=== PATIENT | male | born 1930 | race Caucasian/White ===

== ENCOUNTER → 2017-07-19 | Outpatient (CLI) | payer MEDICARE, BC ==
--- NOTE | 2017-07-19 10:15 | US ---
EXAMINATION TYPE: US abdomen complete DATE OF EXAM: 07/19/2017 COMPARISON: NONE CLINICAL HISTORY: I35.0 Nonrheumatic aortic (valve) stenosis. Elderly patient with ABD pain EXAM MEASUREMENTS: Liver Length: 14.0 cm Gallbladder Wall: 0.2 cm CBD: 0.5 cm Spleen: 8.3 cm Right Kidney: 12.2 x 4.5 x 4.5 cm Left Kidney: 10.2 x 5.4 x 4.7 cm Very thin body habitus, difficult to scan Pancreas: Body wnl, head and tail obscured by overlying bowel gas Liver: Appeared wnl Gallbladder: wnl Evidence for sonographic Dyer's sign: No CBD: wnl Spleen: wnl Right Kidney: Two cysts, largest at upper pole= 2.4 x 1.5 x 2.0 cm simple appearing Left Kidney: Two cysts at upper pole, largest= 2.4 x 1.6 x 1.5 cm simple appearing Upper IVC: wnl Abd Aorta: wall calcifications 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 The intrahepatic portion of the IVC and proximal abdominal aorta are within normal limits. Focal aneurysm over roughly 4 cm length measuring 3.2 x 3.7 cm transversel y in the distal abdominal aorta is noted. No definitive iliac artery extension is seen. There is no e vidence of cholelithiasis. Common bile duct is unremarkable. The visualized portions of the pancrea s are homogenous. The spleen is heterogeneous but not enlarged. Kidneys are symmetric and free of h ydronephrosis. No renal lesions are seen. 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
== END | disposition home or self-care (01) ==
LOC: RADUSWWP 09:32
PROVIDERS: ATTEND Internal Medicine Interventional Cardiology
DX: I71.4 Abdominal aortic aneurysm, without rupture (principal); I35.0 Nonrheumatic aortic (valve) stenosis
CPT/HCPCS: 76700

== ENCOUNTER → 2017-07-27 | Outpatient (CLI) | payer MEDICARE, BC ==
[2017-07-27 08:51] LABS: CH 32.1; CHCM 31.1; HCT 40.8 % (39.0-53.0); HDW 2.13; HGB 12.8 gm/dL (13.0-17.5); Hypochromasia Slight; MCH 32.7 pg (25.0-35.0); MCHC 31.5 g/dL (31.0-37.0); MCV 103.9 fL (80.0-100.0); Macrocytosis Slight; Mean Platelet Volume 8.7; RBC 3.92 m/uL (4.30-5.90); RDW 12.2 % (11.5-15.5); WBC 5.2 k/uL (3.8-10.6)
[2017-07-27 09:03] LABS: ALT 58 U/L (21-72); AST 45 U/L (17-59); Anion Gap 10 mmol/L; Blood Urea Nitrogen 39 mg/dL (9-20); Calcium 9.3 mg/dL (8.4-10.2); Carbon Dioxide 26 mmol/L (22-30); Chloride 106 mmol/L (98-107); Cholesterol 135 mg/dL (<200); Creatine Kinase 68 U/L (55-170); Glucose 90 mg/dL (74-99); HDL Cholesterol 53 mg/dL (40-60); Non-African American GFR(MDRD) >60 (>60 ml/min/1.73 sqM); Potassium 4.6 mmol/L (3.5-5.1); Sodium 142 mmol/L (137-145)
== END | disposition home or self-care (01) ==
LOC: LABWHC1 08:10
PROVIDERS: ATTEND Internal Medicine Interventional Cardiology
DX: I50.9 Heart failure, unspecified (principal); I25.10 Atherosclerotic heart disease of native coronary artery without angina pectoris
CPT/HCPCS: 36415; 80048; 80061; 82550; 84450; 84460; 85027

== ENCOUNTER 2017-07-31 06:23 | Inpatient (IN) | payer MEDICARE, BC ==
[2017-07-26 13:50] VITALS: BMI 18.8
[2017-07-31] MEDS ORDERED: ATORVASTATIN 80 MG TAB PO STA (06:27)
[2017-07-31] MEDS ORDERED: ALPRAZolam 0.5 MG TAB PO PRN (06:27)
[2017-07-31] MEDS ORDERED: NITROGLYCERIN SL TABS 0.4 MG TAB SUBLINGUAL PRN (06:27)
[2017-07-31] MEDS ORDERED: ASPIRIN 325 MG TAB PO STA (06:27)
[2017-07-31] MEDS ORDERED: ALPRAZolam 0.25 MG TAB PO PRN (06:27)
[2017-07-31] MEDS ORDERED: SODIUM CHLORIDE 0.9% 1,000 ML in EMPTY BAG 1 BAG IV ONE (06:27)
[2017-07-31] MEDS ORDERED: LIDOCAINE 2% INJ 20 MG/ML (20 ML MDV) ONE (07:10)
[2017-07-31] MEDS ORDERED: diphenhydrAMINE 50 MG/ML 1 ML VIAL ONE ×2 (07:28→14:45)
[2017-07-31] MEDS ORDERED: diphenhydrAMINE 50 MG/ML 1 ML VIAL IVP ONE ×2 (07:29→15:24)
[2017-07-31] MEDS ORDERED: LIDOCAINE 2% INJ 20 MG/ML IV ONE (07:29)
[2017-07-31] MEDS ORDERED: LIDOCAINE 2% INJ 20 MG/ML SQ ONE ×3 (07:31→17:37)
[2017-07-31] MEDS ORDERED: IOHEXOL 350 MG/ML (PER ML) 100ML BTL INJ ONE (08:26)
[2017-07-31] MEDS ORDERED: SODIUM CHLORIDE 0.9% 1,000 ML IV ONE (08:26)
[2017-07-31 08:39] LABS: Glucose,Whole Blood 81 mg/dL (75-99)
[2017-07-31] MEDS ORDERED: LOSARTAN 25 MG TAB PO STA (08:58)
--- NOTE | 2017-07-31 09:43 | CC ---
CARDIAC CATHETERIZATION REPORT DATE OF SERVICE: 07/31/2017 PROCEDURE: 1. Transvenous temporary pacemaker from the right femoral approach. 2. Coronary angiography and selective injection of bypass graft. Performed by Dr. Vinh Collazo. CLINICAL INFORMATION: Mr. Mckeon is 86-year-old gentleman who underwent aortocoronary bypass surgery in 1995 with a SHEN to LAD, vein graft to the PDA branch of RCA and obtuse marginal branch of circumflex. This gentleman underwent a cardiac cath in 2007, which revealed that these grafts are patent. However, over the years, he has developed aortic stenosis and has had significant shortness of breath with activity. His symptoms suggestive of both angina and also moderate aortic stenosis. He was advised cardiac catheterization and transesophageal echo and brought in for the procedure. 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 After he came into the [facility], he was found to be in a sinus rhythm with block and the heart rate is in the 30s and sometimes a complete heart block. I therefore made a decision to proceed with a temporary pacemaker and coronary angiography. Will postpone the HE for now and also consider a permanent pacemaker later on in the day. The patient has aortic stenosis and given his calcification of the AV ring area, the need for permanent pacemaker seems to be pretty significant. This was discussed with the patient and I proceeded to perform a temporary pacemaker after due discussion. PROCEDURE NOTE: Under local anesthesia and strict aseptic precautions, a 6-Uzbek introducer was placed in the right femoral vein and right femoral artery. Using a balloon tip, temporary pacemaker was placed and positioned in the right ventricular apex. Good thresholds were obtained. The pacer was set at a backup rate of 48, mA of 5.0. Using a standard left Tessa catheter, I performed selective coronary angiography of the left coronary artery. Using a Barrett catheter, I performed selective coronary angiography of the 2 vein grafts in the SHEN. The right picture was taken only in a sub selective fashion and this was totally occluded in that cath from 2007. Following coronary angiography, the sheaths were sutured. Pacemaker was sutured and patient was sent to the ICU with the understanding he will have a permanent pacemaker later on today and transesophageal echo will be canceled for now and I will have had to be brought in for HE at a later date. The patient tolerated the procedure well. Moderate conscious sedation was provided for a total duration of 45 minutes. CORONARY ANGIOGRAPHY FINDINGS: 1. LEFT MAIN CORONARY ARTERY: this is a short patent disease-free vessel that immediately bifurcates into LAD and circumflex. 2. LEFT ANTERIOR DESCENDING CORONARY ARTERY: This vessel has a proximal 70% to 80% stenosis, calcified, and then the vessel in the midportion and has attachment of the SHEN graft. The entire LAD has mild disease, but the proximal lesion is about 70% to80% eccentric in nature. 3. LEFT POSTERIOR CIRCUMFLEX CORONARY ARTERY: A nondominant vessel, is quite tortuous, has minor irregularities of 30% to 40%, but no significant disease is noted in the left posterior circumflex coronary artery. 4. RIGHT CORONARY ARTERY: This was sub selectively seen and this is a totally occluded vessel, which was seen as a total occlusion in the cath from 2007. 5. SAPHENOUS VEIN GRAFT TO THE PDA BRANCH OF RCA: This graft is widely patent. In the proximal 1/3, there is about a 45% stenosis, but the flow is brisk. It opacifies the entire PDA and also PLV as well as the main trunk of RCA. The entire RCA that is opacified is free of significant disease. There is a 45% lesion involving the body of the vein graft to the RCA, located in the proximal portion of the body. The graft lesion is moderate and represents some progression of disease compared to the previous cardiac cath from 2008. However, I do not believe this is a critical lesion. 6. SAPHENOUS VEIN GRAFT TO THE OBTUSE MARGINAL GRAFT OF CIRCUMFLEX: This graft is widely patent. The origin course has mild disease in the body of the graft, opacified obtuse marginal branch is free of significant disease. Supplies a fair amount of myocardium. 7. LEFT INTERNAL MAMMARY ARTERY GRAFT TO LAD: The graft is widely patent. The origin course insertions opacified LAD distally and also to some extent proximal and demonstrates a brisk flow. There is no significant disease other than minor irregularities and the SHEN graft is free of any significant disease. FINAL IMPRESSION: 1. This patient has a complete heart block and has a temporary transvenous pacemaker which has been placed uneventfully. 2. Patient has progression of disease with about a 45% lesion involving the body of the vein graft to the PDA branch of RCA looked in the proximal portion. The lesion is about 45% to 50%. It represents progression of disease, but it is not critical. The vein graft to the obtuse marginal and SHEN to LAD are patent. [place] LAD has 80% lesion proximally in calcified area. The circumflex is free of significant disease. RECOMMENDATIONS: I am recommending that no intervention is necessary for this disease, but the RCA graft needs to be watched closely. I will perform a permanent pacemaker later on today and will cancel the HE which will be performed electively. This was communicated with the patient and family members in great detail. I will perform the permanent pacemaker around 2:30 this afternoon. MMODL / IJN: [id number] /
--- NOTE | 2017-07-31 09:46 | LTR ---
Date: DATE OF SERVICE: 07/31/2017 RE: Faizan Mckeon Dear Dr. Parr; Please find enclosed my detailed cardiac cath report for your records. I am recommending medical therapy for a CAD with moderate progression of disease noted in the vein graft to the RCA. We will do a permanent pacemaker this afternoon. Temporary pacemaker is already in place. I will cancel the HE for now and bring him back for the HE electively to assess the severity and extent of disease involving the aortic valve. Thank you for your referral and please call for questions. With kindest regards. Sincerely yours, MD HILDA ZengL / PAWELN: [id number] /
[2017-07-31] MEDS: SODIUM CHLORIDE 0.9% 1,000 ML IV SCH (10:12)
[2017-07-31] MEDS ORDERED: amLODIPine 5 MG TAB PO STA (10:26)
[2017-07-31] MEDS ORDERED: HYDROmorphone 0.5 MG/0.5 ML SYRINGE IVP STA (10:27)
--- NOTE | 2017-07-31 12:37 | ECHOF ---
Referral Reason:assess heart function; hx aortic stenosis MEASUREMENTS -------- HEIGHT: 152.4 cm WEIGHT: 61.2 kg BP: 158/61 IVSd: 1.2 cm (0.6 - 1.1) LVIDd: 4.1 cm (3.9 - 5.3) LVPWd: 1.3 cm (0.6 - 1.1) IVSs: 1.8 cm LVIDs: 3.1 cm LVPWs: 1.1 cm LA Diam: 4.2 cm (2.7 - 3.8) LAESV Index (A-L): 48.34 ml/m MV EXCURSION: 18.525 mm (> 18.000) MV EF SLOPE: 63 mm/s (70 - 150) EPSS: 0.5 cm MV E Jimmie: 0.72 m/s MV DecT: 248 ms MV A Jimmie: 0.92 m/s MV E/A Ratio: 0.78 AV maxP.16 mmHg AV meanP.21 mmHg AR PHT: 910 ms RAP: 5.00 mmHg RVSP: 32.20 mmHg FINDINGS -------- Paced rhythm. This was a technically good study. There is mild concentric left ventricular hypertrophy. Overall left ventricular systolic function is severely impaired with, an EF between 20 - 25 %. MODERATE LVH WITH SEVERE LV DYSFUNCTION Lateral hypokinesis Posterior hypokinesis The right ventricle is normal in size. LA is severely dilated >40 ml/m2 The right atrial size is normal. There is severe aortic valve sclerosis. There is wbai-ub-vrylszxe aortic regurgitation. There is severe aortic stenosis present. Mild mitral regurgitation is present. Mild tricuspid regurgitation present. There is no evidence of pulmonary hypertension. The right ventricular systolic pressure, as measured by Doppler, is 32.20mmHg. Trace/mild (physiologic) pulmonic regurgitation. The aortic root size is normal. There is no pericardial effusion. CONCLUSIONS -------- 1. There is mild concentric left ventricular hypertrophy. 2. There is severe aortic stenosis present. 3. Mild mitral regurgitation is present. 4. Mild tricuspid regurgitation present. 5. There is no evidence of pulmonary hypertension. 6. The right ventricular systolic pressure, as measured by Doppler, is 32.20mmHg. 7. Trace/mild (physiologic) pulmonic regurgitation. 8. The aortic root size is normal. 9. There is no pericardial effusion. 10. Overall left ventricular systolic function is severely impaired with, an EF between 20 - 25 %. 11. MODERATE LVH WITH SEVERE LV DYSFUNCTION 12. Lateral hypokinesis 13. Posterior hypokinesis 14. LA is severely dilated >40 ml/m2 15. The right atrial size is normal. 16. There is severe aortic valve sclerosis. 17. There is rtyk-hf-jprkiwij aortic regurgitation. PARKING CASHIER: Olimpia Durant RDCS
[2017-07-31] MEDS ORDERED: IODIXANOL 320 MG/ML 100 ML IV ONE (14:24)
[2017-07-31] MEDS ORDERED: ceFAZolin 1,000 MG in SODIUM CHLORIDE 0.9% IRRIGATIO 250 ML IRRIGATION ONE (14:30)
[2017-07-31] MEDS ORDERED: ceFAZolin 2 GM in SODIUM CHLORIDE 0.9% 100 ML IVPB ONE (14:30)
[2017-07-31] MEDS ORDERED: MIDAZOLAM 2 MG/2 ML VIAL ONE (14:44)
[2017-07-31] MEDS ORDERED: HYDROmorphone 2 MG/ML 1 ML SYRINGE ONE (15:19)
[2017-07-31] MEDS: HYDROmorphone 2 MG/ML 1 ML SYRINGE IV ONE ×2 (15:20→17:37)
[2017-07-31] MEDS ORDERED: IV FLUID CONTINUATION 1,000 ML IV ONE (15:24)
[2017-07-31] MEDS ORDERED: MIDAZOLAM 2 MG/2 ML VIAL IV ONE (15:24)
[2017-07-31] MEDS ORDERED: IV FLUID CONTINUATION 500 ML IV ONE (15:26)
[2017-07-31] MEDS ORDERED: ACETAMINOPHEN TAB 325 MG TAB PO PRN (17:19)
--- NOTE | 2017-07-31 18:32 | XR ---
EXAMINATION TYPE: XR chest 1V portable DATE OF EXAM: 07/31/2017 COMPARISON: 01/26/2016 HISTORY: Postop TECHNIQUE: Single frontal view of the chest is obtained. FINDINGS: Heart is enlarged. There is mild pulmonary vascular redistribution. There is no definite p leural effusion. There is a left axillary pacemaker with the lead tips in the right ventricle. There are sternal wires. Thoracic aorta is atheromatous. IMPRESSION: Cardiomegaly. New axillary pacemaker. Mild pulmonary congestion. Pulmonary vascularity i s increased compared to last exam and consistent with mild heart failure.
[2017-07-31] MEDS ORDERED: FUROSEMIDE 10 MG/ML 2 ML VIAL IV ONE (19:00)
--- NOTE | 2017-07-31 19:48 | CE ---
CARDIAC ELECTROPHYSIOLOGY REPORT DATE OF PROCEDURE: 07/31/2017. PROCEDURE: Dual chamber permanent pacemaker placement from left infraclavicular approach. PERFORMED BY: Dr. Vinh Collazo. CLINICAL INFORMATION: Mr. Faizan Mckeon is an 86-year-old gentleman with a history of CAD, previous VT and bypass surgery, who also has moderate aortic stenosis. He was brought in for a HE and cardiac cath because of symptoms of chest pain and shortness of breath with limited activity. However he was found to be in a complete heart block with underlying left bundle with intermittent high-grade 2:1 block. He was therefore advised permanent pacemaker. A temporary pacemaker was placed under fluoroscopic guidance early this morning prior to cardiac catheterization and he was paced at 70 beats per minute and was stable hemodynamically. PROCEDURE: Under local anesthesia and strict aseptic precautions, 2 separate access points were obtained into the left axillary vein under fluoroscopic guidance with a venogram. I then made a linear incision of about 3-1/2 inches long parallel and medial to the left deltopectoral groove. Blunt dissection was performed with cautery up to the level of fascia. A pocket was made of adequate size. I then advanced under fluoroscopic guidance through a 6-Jordanian introducer. The ventricular lead and placed in the left ventricular apical septal portion. Good thresholds and sensitivities are obtained. I then advanced a 6-[place]ian venous sheath over the next guidewire and advanced the atrial lead under fluoroscopic guidance and after several multiple attempts, I obtained a reasonable actively accessible sensitivities but good thresholds. I then secured each lead separately to the underlying muscle. The pocket was drenched with antibiotic solution. The patient also had IV antibiotic running during the onset of the procedure. The pulse generator was then connected to the 2 leads and the pulse generator was also secured. The pocket was then closed in 2 layers. Thrombin was injected into the site.Excellent hemostasis was achieved. The temporary pacemaker was then taken out under fluoroscopy guidance and the sheaths were pulled. Both arterial and venous sheaths were pulled and hemostasis secured with manual compression and then a FemoStop will be applied for 2 hours. The patient tolerated procedure well without complications. He will have a chest x-ray today and another chest x-ray tomorrow along with a pacemaker check and then he will be discharged if stable. The details of the procedure were explained to the patient and also to family members and he will be sent to the room in a stable condition. PERMANENT PACEMAKER INFORMATION: Medical Office Rep: [employer] MRI 2272. Serial #[id number]. Atrial lead library science professor: [employer] Tendril [employer] 1882TC/52 cm, serial number [id number]. Ventricular lead library science professor: [employer] Tendril STS 8TC/58 cm, serial number [id number]. The atrial lead threshold was 0.5 V at 0.4 milliseconds. The P wave sensing ranged between 1.42-2.0 mV. The lead impedance was 350 ohms. Ventricular lead threshold was 0.75 V at 0.4 mV. Sensing was not performed because patient was pacer dependent. The lead impedance was 600 ohms. The pacemaker has been set at a low rate of 50, high rate of 110, paced AV delay of 200 milliseconds and sensed AV delay of 180 milliseconds. The mode was DDDR. The patient tolerated the pacemaker procedure well without complication and the details were discussed with the patient and family. He will be sent to the room in a stable condition. Moderate conscious sedation was used for a total duration of 1 hour 30 minutes. The patient was given Dilaudid and Versed combination. MMJUS / IJN: [id number] / MTDFarzad
[2017-07-31] MEDS: ceFAZolin 2 GM in SODIUM CHLORIDE 0.9% 100 ML IVPB SCH (20:21)
[2017-08-01] MEDS: ceFAZolin 2 GM in SODIUM CHLORIDE 0.9% 100 ML IVPB SCH ×2 (02:36→08:50)
[2017-08-01 04:56] LABS: Basophils % (A) 0 %; CH 32.3; CHCM 31.8; Eosinophils % (A) 0 %; HCT 41.1 % (39.0-53.0); HDW 2.22; HGB 13.4 gm/dL (13.0-17.5); Luc # (Auto) 0.17; Luc % (Auto) 2; Lymphocytes # (A) 0.8 k/uL (1.0-4.8); Lymphocytes % (A) 8 %; MCH 33.4 pg (25.0-35.0); MCHC 32.6 g/dL (31.0-37.0); MCV 102.2 fL (80.0-100.0); Macrocytosis Slight; Mean Platelet Volume 7.7; Monocytes # (A) 0.7 k/uL (0-1.0); Monocytes % (A) 8 %; Neutrophils # (A) 7.9 k/uL (1.3-7.7); Neutrophils % (A) 82 %; RBC 4.02 m/uL (4.30-5.90); RDW 12.2 % (11.5-15.5); WBC 9.6 k/uL (3.8-10.6); WBC (Perox) 9.88
[2017-08-01 05:12] LABS: Anion Gap 10 mmol/L; Blood Urea Nitrogen 37 mg/dL (9-20); Carbon Dioxide 26 mmol/L (22-30); Chloride 103 mmol/L (98-107); Glucose 124 mg/dL (74-99); Magnesium 2.1 mg/dL (1.6-2.3); Non-African American GFR(MDRD) >60 (>60 ml/min/1.73 sqM); Phosphorus 3.7 mg/dL (2.5-4.5); Potassium 3.9 mmol/L (3.5-5.1); Sodium 139 mmol/L (137-145)
[2017-08-01] MEDS: SODIUM CHLORIDE 0.9% 1,000 ML IV SCH (06:00)
[2017-08-01] MEDS ORDERED: ATORVASTATIN 10 MG TAB PO SCH (06:55)
--- NOTE | 2017-08-01 07:02 | XR ---
EXAMINATION TYPE: XR chest 2V DATE OF EXAM: 08/01/2017 COMPARISON: Chest x-ray from yesterday. HISTORY: Lead placement TECHNIQUE: Frontal and lateral views of the chest are obtained. FINDINGS: There is redemonstration of cardiomegaly. Dual lead pacemaker has leads projecting over ri ght atrium and right ventricle confirmed on lateral view. There is patchy left basilar opacity consis tent with small left pleural effusion and associated left basilar atelectasis and/or infiltrate. The osseous structures are demineralized. Atherosclerotic thoracic aorta is redemonstrated. IMPRESSION: Pacemaker leads project into right atrium and right ventricle on 2 views. There is redem onstration of cardiomegaly with small left pleural effusion and associated left basilar atelectasis a nd/or infiltrate.
[2017-08-01 07:47] LABS: Glucose,Whole Blood 87 mg/dL (75-99)
[2017-08-01 08:03] VITALS: PULSE 64; RESP 16
[2017-08-01] MEDS ORDERED: ASPIRIN 81 MG PO SCH (09:00)
[2017-08-01] MEDS ORDERED: FUROSEMIDE 40 MG TAB PO SCH ×2 (09:00→14:00)
[2017-08-01] MEDS ORDERED: LOSARTAN 25 MG TAB PO SCH (09:00)
--- NOTE | 2017-08-01 11:33 | DS ---
DISCHARGE SUMMARY DATE OF ADMISSION: 07/31/2017. DATE OF DISCHARGE: 08/01/2017 DIAGNOSIS: 1. Coronary artery disease with previous bypass surgery. 2. High-degree AV block, symptomatic. 3. History of moderate aortic stenosis. Mr. Faizan Mckeon was brought in for the procedure for coronary angiography to assess the status of the bypass grafts and [place] vessels and also to have a HE performed. However, he was quite symptomatic with significant bradycardia and a heart rate in the 30s with a 2:1 block and sometimes complete heart block. I therefore performed a temporary pacemaker from the right femoral approach and then performed coronary angiography, which revealed moderate progression of disease involving the vein graft to the RCA, but no other significant progression was noted. With regard to CAD, medical therapy was advised. I also canceled the HE echo and will perform this electively. Subsequently, yesterday afternoon at about 3 pm I performed a permanent pacemaker from the left infraclavicular approach. Patient tolerated the procedure well without complication. His chest x-rays both yesterday and today are unremarkable. His vital signs are stable. Pacemaker is functioning well. This has been interrogated with good sensitivities and thresholds. The patient is ambulating the hallways without symptoms. Hie is asymptomatic. I reviewed all his medications and gave him discharge instructions regarding activity, diet and medications. I will see him in the office next Sunday at 2 pm. This morning, his blood pressure is 128/70, pulse rate is about 64 per minute, which is atrial sensed and ventricular paced. S1, S2 are normal. Ejection systolic murmur is audible at the base. Second heart sound appears to be fairly preserved. Lungs are clear. Abdomen is soft, nontender. Lower extremities reveal normal pulses. No edema. Right groin is clean and dry with a good pulse. The left infraclavicular pacemaker site is clean and dry. The patient is in a sling, ambulating hallways without symptoms. He will be discharged today after lunch. DISCHARGE INSTRUCTIONS: Regarding activity, diet, medications were given. Labs are acceptable. He will start Lasix tomorrow. He will be discharged today and will follow with me in one week. MMODL / IJN: [id number] /
[2017-08-01] MEDS ORDERED: CYANOCOBALAMIN 500 MCG TAB PO SCH (12:00)
[2017-08-01 12:09] VITALS: BP 111/53; TEMP 98.2
== END 2017-08-01 14:01 | disposition home or self-care (01) | DRG 243 ==
LOC: CATHCVL 06:23 → 6ICU 08:25 → CATHCVL 14:03
PROVIDERS: ADMIT Internal Medicine Interventional Cardiology; ATTEND Internal Medicine Interventional Cardiology
PROC: 4A023N7 Measurement of Cardiac Sampling and Pressure, Left Heart, Percutaneous Approach (ICD-10-PCS; 2017-07-31)
PROC: B2131ZZ Fluoroscopy of Multiple Coronary Artery Bypass Grafts using Low Osmolar Contrast (ICD-10-PCS; 2017-07-31)
PROC: B2111ZZ Fluoroscopy of Multiple Coronary Arteries using Low Osmolar Contrast (ICD-10-PCS; 2017-07-31)
PROC: 5A1223Z Performance of Cardiac Pacing, Continuous (ICD-10-PCS; 2017-07-31)
PROC: 02H63JZ Insertion of Pacemaker Lead into Right Atrium, Percutaneous Approach (ICD-10-PCS; 2017-07-31)
PROC: 0JH606Z Insertion of Pacemaker, Dual Chamber into Chest Subcutaneous Tissue and Fascia, Open Approach (ICD-10-PCS; principal; 2017-07-31 07:30)
PROC: 02HL3JZ Insertion of Pacemaker Lead into Left Ventricle, Percutaneous Approach (ICD-10-PCS; 2017-07-31 07:30)
DX: I44.2 Atrioventricular block, complete (principal); Q21.1 Atrial septal defect; I25.82 Chronic total occlusion of coronary artery; I35.0 Nonrheumatic aortic (valve) stenosis; I25.10 Atherosclerotic heart disease of native coronary artery without angina pectoris; I71.4 Abdominal aortic aneurysm, without rupture; E78.5 Hyperlipidemia, unspecified; I25.5 Ischemic cardiomyopathy; I10 Essential (primary) hypertension; E78.00 Pure hypercholesterolemia, unspecified; Z95.1 Presence of aortocoronary bypass graft; Z79.82 Long term (current) use of aspirin; Z79.899 Other long term (current) drug therapy; Z87.891 Personal history of nicotine dependence
CPT/HCPCS: 33208; 33210; 71010; 71020; 80048; 83735; 84100; 85025; 85347; 93306; 93455

== ENCOUNTER 2017-08-29 10:48 | Day surgery (SDC) | payer MEDICARE, BC ==
[2017-08-23 15:08] VITALS: BMI 19.3
[2017-08-29 11:20] VITALS: RESP 16; TEMP 98
[2017-08-29] MEDS ORDERED: SODIUM CHLORIDE 0.9% 500 ML IV ONE (11:21)
[2017-08-29] MEDS ORDERED: fentaNYL (PF) 50 MCG/ML 2 ML AMP ONE (12:33)
[2017-08-29] MEDS ORDERED: MIDAZOLAM 2 MG/2 ML VIAL ONE (12:33)
[2017-08-29] MEDS ORDERED: BENZOCAINE SPRAY 1 CAN MUCOUS MEM ONE (12:59)
[2017-08-29] MEDS ORDERED: MIDAZOLAM 2 MG/2 ML VIAL IV ONE (13:07)
[2017-08-29] MEDS ORDERED: fentaNYL (PF) 50 MCG/ML 2 ML AMP IV ONE (13:07)
[2017-08-29] MEDS ORDERED: SODIUM CHLORIDE 0.9% 1,000 ML IV SCH (14:00)
[2017-08-29 14:37] VITALS: BP 142/62; PULSE 62
--- NOTE | 2017-08-29 14:56 | ECHOT ---
TRANSESOPHAGEAL ECHOCARDIOGRAM Mr. Mckeon is an 86-year-old gentleman who underwent transesophageal echocardiogram to evaluate the patient's aortic stenosis. Patient was given intravenous sedation with Versed and fentanyl and transesophageal echocardiogram was performed without any complications. Left ventricular chamber is normal in size. There is a moderate degree of left ventricular hypertrophy with normal left ventricular systolic function. Mitral valve morphology is normal. Mild mitral regurgitation noted. Left atrial appendage is without any thrombus. Aortic valve is heavily calcified with diminished aortic leaflet excursion and the opening. Aortic valve area is calculated in the range of 0.7 square cm suggestive of severe aortic stenosis. There is a mild aortic regurgitation noted. Tricuspid valve morphology is normal. Mild tricuspid regurgitation is noted. There is evidence of small size atrial septal defect with continuous left to right shunt. The saline contrast study shows a small qzhhr-ea-yjxw shunt. Descending thoracic aorta shows multiple atherosclerotic plaque. FINAL IMPRESSION: 1. This study shows calcified aortic valve with severe degree of aortic stenosis. Aortic valve area calculated in the range of 0.7 squared cm. There is a mild aortic regurgitation noted. 2. Left ventricular chamber is normal in size with mild to moderate degree of left ventricular hypertrophy and normal left ventricular systolic function. 3. There is mild mitral regurgitation noted. 4. There is evidence of small atrial septal defect with pvhw-hq-fxkji shunt. MMODL / IJN: [id number] /
--- NOTE | 2017-09-11 05:39 | CDI ---
Dear Dr. Osborn, Please provide clarification regarding the type of sedation given. The HE report states that the patient was given intravenous sedation with Versed and Fentanyl. Please clarify if the sedation was Moderate/conscious sedation or GA/ unconscious sedation. PLEASE RESPOND TO THIS QUERY BY DICTATING AN ADDENDUM TO THE HE REPORT. Thank you for your assistance, ARASH Morales If you have any questions, contact the Counterintelligence Specialist, Janet Angulo at [facility]
== END 2017-08-29 14:51 | disposition home or self-care (01) ==
LOC: CATHCVL 10:48
PROVIDERS: ATTEND Internal Medicine Cardiovascular Disease
DX: I08.0 Rheumatic disorders of both mitral and aortic valves (principal); Q21.1 Atrial septal defect; I44.2 Atrioventricular block, complete; I25.2 Old myocardial infarction; Z82.49 Family history of ischemic heart disease and other diseases of the circulatory system; Z87.891 Personal history of nicotine dependence; E78.00 Pure hypercholesterolemia, unspecified; I10 Essential (primary) hypertension; Z95.1 Presence of aortocoronary bypass graft; Z95.0 Presence of cardiac pacemaker; Z79.82 Long term (current) use of aspirin; Z79.899 Other long term (current) drug therapy
CPT/HCPCS: 93312; 93320; 93325; J2250; J3010

== ENCOUNTER → 2017-12-18 | Outpatient (CLI) | payer MEDICARE, BC ==
[2017-12-18 09:28] LABS: HCT 37.6 % (39.0-53.0); Hypochromasia Marked; MCH 29.8 pg (25.0-35.0); MCHC 29.2 g/dL (31.0-37.0); MCV 102.1 fL (80.0-100.0); Macrocytosis Slight; Mean Platelet Volume 7.6; Platelet Count 101 k/uL (150-450); RBC 3.68 m/uL (4.30-5.90); RDW 13.6 % (11.5-15.5); WBC 5.2 k/uL (3.8-10.6)
[2017-12-18 09:46] LABS: Anion Gap 7 mmol/L; Blood Urea Nitrogen 25 mg/dL (9-20); Calcium 9.4 mg/dL (8.4-10.2); Carbon Dioxide 29 mmol/L (22-30); Chloride 104 mmol/L (98-107); Glucose 89 mg/dL (74-99); Potassium 4.7 mmol/L (3.5-5.1); Sodium 140 mmol/L (137-145)
== END | disposition home or self-care (01) ==
LOC: LABWHC1 08:53
PROVIDERS: ATTEND Internal Medicine Interventional Cardiology
DX: I25.10 Atherosclerotic heart disease of native coronary artery without angina pectoris (principal); D64.9 Anemia, unspecified
CPT/HCPCS: 36415; 80048; 85027

== ENCOUNTER 2018-04-04 16:30 | Emergency (ER) | payer MEDICARE, BC ==
[2018-04-04 16:42] VITALS: RESP 18
[2018-04-04] MEDS ORDERED: SODIUM CHLORIDE 0.9% 1,000 ML IV STA ×2 (16:58)
[2018-04-04] MEDS ORDERED: DILTIAZEM 50 MG in SODIUM CHLORIDE 0.9% 40 ML IV ONE (17:02)
--- NOTE | 2018-04-04 17:05 | ED ---
Dizziness HPI - General Chief Complaint: Dizziness Stated Complaint: Dizzy-Sent by Time Seen by Provider: 04/04/18 16:47 Source: patient, family, RN notes reviewed Mode of arrival: ambulatory Limitations: no limitations - History of Present Illness Initial Comments: This is a 87-year-old male who was having cardiac rehab today when he started feeling dizzy and lightheaded and a blood pressure of 70s over 40s. This was per a rehab nurse it was present with the patient name is called but he refused milligrams he did come in with his . He states she's feeling better normal he had no chest pain fevers chills nausea vomiting sweats or other symptoms other than the lightheadedness and dizziness at that time and no symptoms at this time. No palpitations were reported. No other modifying factors other than the patient apparently does not drink enough water. MD Complaint: dizziness, lightheadedness - Related Data Home Medications Medication Instructions Recorded Confirmed Simvastatin [Zocor] 20 mg PO HS 01/26/16 04/04/18 Losartan Potassium [Cozaar] 25 mg PO DAILY 07/26/17 04/04/18 Metoprolol Tartrate [Lopressor] 12.5 mg PO BID 08/29/17 04/04/18 Apixaban [Eliquis] 2.5 mg PO BID 04/04/18 04/04/18 Ascorbic Acid [Vitamin C] 500 mg PO DAILY 04/04/18 04/04/18 Cholecalciferol [Vitamin D3] 1,000 unit PO DAILY 04/04/18 04/04/18 Cyanocobalamin [Vitamin B-12] 500 mcg PO DAILY 04/04/18 04/04/18 Famotidine [Pepcid] 40 mg PO DAILY 04/04/18 04/04/18 Finasteride [Proscar] 5 mg PO DAILY 04/04/18 04/04/18 Previous Rx's Medication Instructions Recorded Furosemide [Lasix] 40 mg PO DAILY #30 tab 01/28/16 Allergies Allergy/AdvReac Type Severity Reaction Status Date / Time No Known Allergies Allergy Verified 04/04/18 16:42 Review of Systems ROS Statement: Those systems with pertinent positive or pertinent negative responses have been documented in the HPI. ROS Other: All systems not noted in ROS Statement are negative. Past Medical History Past Medical History: Coronary Artery Disease (CAD), Hyperlipidemia, Myocardial Infarction ([place]), Pneumonia Additional Past Medical History / Comment(s): Bilat cataract surgery, irregular heart rhythum, SOB, "rt foot shorter than left foot" Last Myocardial Infarction Date:: 1991 approx History of Any Multi-Drug Resistant Organisms: None Reported Past Surgical History: Back Surgery, Coronary Bypass/CABG, Heart Catheterization , Pacemaker, Tonsillectomy Additional Past Surgical History / Comment(s): tan cataracts, triple bypass grafting in 1995, cardiac catheterization in 2007 and 2016 , rt foot surgery as , pacemaker 07/31/17 Past Anesthesia/Blood Transfusion Reactions: No Reported Reaction Type of Cardiac Device: Permanent Pacemaker Device Placement Date:: [facility] 07/31/17 Past Psychological History: No Psychological Hx Reported Smoking Status: Former smoker - Past Family History Mother Family Medical History: Cancer Father Family Medical History: Cancer Additional Family Medical History / Comment(s): Lung CA General Exam - General Exam Comments Initial Comments: This is a well-developed well-nourished awake alert oriented 3 male Limitations: no limitations General appearance: alert, in no apparent distress Head exam: Present: atraumatic, normocephalic, normal inspection Eye exam: Present: normal appearance, PERRL, EOMI. Absent: scleral icterus, conjunctival injection, periorbital swelling ENT exam: Present: mucous membranes dry Neck exam: Present: normal inspection. Absent: tenderness, meningismus, lymphadenopathy Respiratory exam: Present: normal lung sounds bilaterally. Absent: respiratory distress, wheezes, rales, rhonchi, stridor Cardiovascular Exam: Present: regular rate, normal rhythm, normal heart sounds. Absent: systolic murmur, diastolic murmur, rubs, gallop, clicks GI/Abdominal exam: Present: soft, normal bowel sounds. Absent: distended, tenderness, guarding, rebound, rigid Extremities exam: Present: normal inspection, full ROM, normal capillary refill. Absent: tenderness, pedal edema, joint swelling, calf tenderness Back exam: Present: normal inspection Neurological exam: Present: alert, oriented X3, CN II-XII intact Psychiatric exam: Present: normal affect, normal mood Skin exam: Present: warm, dry, intact, normal color. Absent: rash Course Vital Signs 04/04/18 04/04/18 16:39 17:42 Temperature 98.3 F Pulse Rate 65 54 L Respiratory 18 18 Rate Blood Pressure 118/55 147/66 O2 Sat by Pulse 97 98 Oximetry EKG Findings - EKG Results: EKG: interpreted by ERMD (EKG showed sinus rhythm of 60. Interval 170 QRS duration 154 QT since QTC of 500/500 nonspecific interventricular block old inferior changes) Medical Decision Making - Medical Decision Making The patient rested comfortably throughout the afternoon hear well he was here he did get IV hydration he feels improved and back to normal he will be discharged the presentation is consistent with dehydration and an orthostatic episode - Lab Data Result diagrams: 04/04/18 16:50 04/04/18 16:50 Lab Results 04/04/18 04/04/18 04/04/18 Range/Units 16:50 16:50 16:50 WBC 5.4 (3.8-10.6) k/uL RBC 4.06 L (4.30-5.90) m/uL Hgb 12.3 L (13.0-17.5) gm/dL Hct 37.5 L (39.0-53.0) % MCV 92.4 (80.0-100.0) fL MCH 30.3 (25.0-35.0) pg MCHC 32.7 (31.0-37.0) g/dL RDW 15.3 (11.5-15.5) % Plt Count 116 L (150-450) k/uL Neutrophils % 68 % Lymphocytes % 17 % Monocytes % 9 % Eosinophils % 4 % Basophils % 1 % Neutrophils # 3.7 (1.3-7.7) k/uL Lymphocytes # 0.9 L (1.0-4.8) k/uL Monocytes # 0.5 (0-1.0) k/uL Eosinophils # 0.2 (0-0.7) k/uL Basophils # 0.0 (0-0.2) k/uL Sodium 139 (137-145) mmol/L Potassium 4.5 (3.5-5.1) mmol/L Chloride 102 (98-107) mmol/L Carbon Dioxide 25 (22-30) mmol/L Anion Gap 12 mmol/L BUN 29 H (9-20) mg/dL Creatinine 0.90 (0.66-1.25) mg/dL Est GFR (CKD-EPI)AfAm 88 (>60 ml/min/1.73 sqM) Est GFR (CKD-EPI)NonAf 76 (>60 ml/min/1.73 sqM) Glucose 103 H (74-99) mg/dL Calcium 9.1 (8.4-10.2) mg/dL Magnesium 2.1 (1.6-2.3) mg/dL Total Bilirubin 0.3 (0.2-1.3) mg/dL AST 34 (17-59) U/L ALT 27 (21-72) U/L Alkaline Phosphatase 74 (38-126) U/L Total Creatine Kinase 101 (55-170) U/L CK-MB (CK-2) 2.2 (0.0-2.4) ng/mL CK-MB (CK-2) Rel Index 2.2 Troponin I 0.014 (0.000-0.034) ng/mL Total Protein 6.5 (6.3-8.2) g/dL Albumin 3.7 (3.5-5.0) g/dL Disposition Clinical Impression: Orthostatic hypotension, Dehydration Disposition: HOME SELF-CARE Condition: Good Instructions: Dehydration (ED), Hypotension (ED) Is patient prescribed a controlled substance at d/c from ED?: No Referrals: Kurtis Parr MD [Primary Care Provider] - 1-2 days
[2018-04-04 17:12] LABS: Basophils % (A) 1 %; Eosinophils # (A) 0.2 k/uL (0-0.7); Eosinophils % (A) 4 %; HCT 37.5 % (39.0-53.0); HGB 12.3 gm/dL (13.0-17.5); Lymphocytes # (A) 0.9 k/uL (1.0-4.8); Lymphocytes % (A) 17 %; MCH 30.3 pg (25.0-35.0); MCHC 32.7 g/dL (31.0-37.0); MCV 92.4 fL (80.0-100.0); Mean Platelet Volume 7.8; Monocytes # (A) 0.5 k/uL (0-1.0); Monocytes % (A) 9 %; Neutrophils # (A) 3.7 k/uL (1.3-7.7); Neutrophils % (A) 68 %; Platelet Count 116 k/uL (150-450); RBC 4.06 m/uL (4.30-5.90); RDW 15.3 % (11.5-15.5); WBC 5.4 k/uL (3.8-10.6)
[2018-04-04 17:20] LABS: Albumin 3.7 g/dL (3.5-5.0); Calcium 9.1 mg/dL (8.4-10.2); Magnesium 2.1 mg/dL (1.6-2.3); Potassium 4.5 mmol/L (3.5-5.1); Total Bilirubin 0.3 mg/dL (0.2-1.3); Total Protein 6.5 g/dL (6.3-8.2)
[2018-04-04 17:48] LABS: Creatine Kinase MB 2.2 ng/mL (0.0-2.4); Troponin I 0.014 ng/mL (0.000-0.034)
[2018-04-04 18:22] VITALS: BP 149/78; PULSE 69; TEMP 97.8
== END 2018-04-04 18:23 | disposition home or self-care (01) ==
LOC: EC 16:30
DX: I95.1 Orthostatic hypotension (principal); E86.0 Dehydration; I25.10 Atherosclerotic heart disease of native coronary artery without angina pectoris; E78.5 Hyperlipidemia, unspecified; I25.2 Old myocardial infarction; Z95.1 Presence of aortocoronary bypass graft; Z95.0 Presence of cardiac pacemaker; Z95.818 Presence of other cardiac implants and grafts; Z87.891 Personal history of nicotine dependence; Z79.899 Other long term (current) drug therapy; Z79.01 Long term (current) use of anticoagulants
CPT/HCPCS: 36415; 80053; 82550; 82553; 83735; 84484; 85025; 93005; 96360; 99284

== ENCOUNTER → 2018-11-13 | Outpatient (CLI) | payer MEDICARE, BC ==
[2018-11-13 10:15] LABS: HCT 44.4 % (39.0-53.0); MCH 31.6 pg (25.0-35.0); MCHC 31.5 g/dL (31.0-37.0); MCV 100.2 fL (80.0-100.0); Platelet Count 125 k/uL (150-450); RBC 4.43 m/uL (4.30-5.90); RDW 13.3 % (11.5-15.5); WBC 5.7 k/uL (3.8-10.6)
[2018-11-13 10:30] LABS: Potassium 4.7 mmol/L (3.5-5.1)
== END | disposition home or self-care (01) ==
LOC: LABPAT 09:04
PROVIDERS: ATTEND Internal Medicine Interventional Cardiology
DX: Z01.812 Encounter for preprocedural laboratory examination (principal)
CPT/HCPCS: 36415; 80051; 82565; 84520; 85027

== ENCOUNTER → 2018-11-15 | Outpatient (CLI) | payer MEDICARE, BC ==
--- NOTE | 2018-11-15 14:03 | CT ---
EXAMINATION TYPE: CT brain wo con DATE OF EXAM: 11/15/2018 COMPARISON: 01/26/2016 HISTORY: Memory loss. CT DLP: 1195 mGycm Automated exposure control for dose reduction was used. FINDINGS: There is extensive generalized degenerative change. Periventricular low attenuation is nonspecific bu t most typical remote microvascular ischemia. Calvarium intact. No midline shift or acute hemorrhage. 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
== END | disposition home or self-care (01) ==
LOC: RADCTMAIN 13:05
PROVIDERS: ATTEND Psychiatry & Neurology Neurology
DX: G31.89 Other specified degenerative diseases of nervous system (principal); R41.3 Other amnesia
CPT/HCPCS: 70450

== ENCOUNTER 2019-03-18 21:57 | Inpatient (IN) | payer MEDICARE, BC ==
--- NOTE | 2019-03-18 22:19 | ED ---
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 History is provided primarily by the patient's . reports that today they went grocery shopping. She reports that because they both move rather slowly were in the grocery store for over 3 hours. She reports throughout the entire time and was able to walk and push the grocery cart. Upon returning home, he reported feeling very weak and tired. He sat down at the dining room table where he nodded off and took a nap. She woke him to ask him to help away groceries but he reportedly felt too weak and when he attempted to stand, he was unable to. She reports she was weak in his legs and she had to assist him to the ground. She was then able to assist him to his chair in the living room where he rested for a couple more hours. This evening he did use the restroom and when she attempted to get him up to walk to the restroom, he was too weak to do so and he had to crawl to the restroom at which time she called her daughter who decided to bring him into the hospital for further evaluation. Patient offers no complaints. He reports it is feeling well. - Related Data Home Medications Medication Instructions Recorded Confirmed Simvastatin [Zocor] 20 mg PO HS 01/26/16 03/18/19 Losartan Potassium [Cozaar] 25 mg PO DAILY 07/26/17 03/18/19 Ascorbic Acid [Vitamin C] 500 mg PO DAILY 04/04/18 03/18/19 Cholecalciferol [Vitamin D3 (25 1,000 unit PO DAILY 04/04/18 03/18/19 Mcg = 1000 Iu)] Cyanocobalamin [Vitamin B-12] 500 mcg PO DAILY 04/04/18 03/18/19 Apixaban [Eliquis] 2.5 mg PO BID 03/18/19 03/18/19 Famotidine [Pepcid] 40 mg PO [id number] 03/18/19 03/18/19 Fish Oil/Dha/Epa [Fish Oil 1,200 1 cap PO DAILY 03/18/19 03/18/19 mg Fish Oil] Metoprolol Tartrate [Lopressor] 12.5 mg PO BID 03/18/19 03/18/19 Allergies Allergy/AdvReac Type Severity Reaction Status Date / Time No Known Allergies Allergy Verified 03/18/19 22:40 Review of Systems ROS Statement: Those systems with pertinent positive or pertinent negative responses have been documented in the HPI. ROS Other: All systems not noted in ROS Statement are negative. Past Medical History Past Medical History: Coronary Artery Disease (CAD), Hyperlipidemia, Myocardial Infarction ([place]), Pneumonia Additional Past Medical History / Comment(s): Bilat cataract surgery, irregular heart rhythum, SOB, "rt foot shorter than left foot", Last Myocardial Infarction Date:: 1991 approx History of Any Multi-Drug Resistant Organisms: None Reported Past Surgical History: Back Surgery, Coronary Bypass/CABG, Heart Catheterization, Pacemaker, Tonsillectomy Additional Past Surgical History / Comment(s): tan cataracts, triple bypass grafting in 1995, cardiac catheterization in 2007 and 2016 , rt foot surgery as infant, pacemaker 07/31/17, 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 Patient is nontoxic and well- hydrated and is in no distress. HENT: Normocephalic, Atraumatic. EYES: PERRL, EOMI PULMONARY: Unlabored respirations. No audible rales rhonchi or wheezing was noted. CARDIOVASCULAR: Well-healed midline sternotomy scar Holosystolic murmur consistent with history of prosthetic aortic valve ABDOMEN: Soft and nontender with normal bowel sounds. SKIN: Skin is clear with no lesions or rashes and otherwise unremarkable. : Deferred NEUROLOGIC: Alert and oriented to self, can identify where he is or the year, recognizes his and daughter MUSCULOSKELETAL: Normal extremities with adequate strength and full range of motion. No lower extremity swelling or edema. No calf tenderness. PSYCHIATRIC: Normal psychiatric evaluation. Limitations: altered mental status, physical limitation Course Vital Signs 03/18/19 03/19/19 21:57 05:40 Temperature 97.6 F 98.4 F Pulse Rate 60 Pulse Rate [ 60 Pulse Oximetery ] Respiratory 18 17 Rate Blood Pressure 153/71 Blood Pressure 151/75 [Right Arm] O2 Sat by Pulse 94 L 92 L Oximetry EKG Findings - EKG Comments: EKG Findings:: EKG obtained at 2212, rate is 60, rhythm is ventricularly paced, QRS 168, QTC I before. No acute ST elevations or depressions. No evidence of acute ischemia or infarction. Medical Decision Making - Medical Decision Making The patient was seen and evaluated, history was obtained from the family at bedside. Patient with generalized weakness of the bilateral lower extremities. No focal neurologic deficits, on physical exam he does have good strength in plantar and dorsiflexion of the ankles as well as raising the legs, however he does state that he doesn't feel like he can get up and walk right now. Labs and imaging were ordered And CBC and CMP without significant abnormality. Urinalysis reveals no urinary tract infection . There are hyaline casts significant for signs of dehydration Patient received 1 L IV fluids, but continued to feel generalized weakness and unstable on his feet, therefore, did not want to be discharged home. Patient care was discussed with admitting physician, Dr. Lake of the [facility], who accepts the patient to the observation unit. - Lab Data Result diagrams: 03/18/19 22:21 03/18/19 22:21 Lab Results 03/18/19 03/18/19 03/18/19 Range/Units 22:21 22:21 22:21 WBC 6.7 (3.8-10.6) k/uL RBC 4.69 (4.30-5.90) m/uL Hgb 14.7 (13.0-17.5) gm/dL Hct 46.0 (39.0-53.0) % MCV 98.1 (80.0-100.0) fL MCH 31.4 (25.0-35.0) pg MCHC 32.0 (31.0-37.0) g/dL RDW 13.1 (11.5-15.5) % Plt Count 139 L (150-450) k/uL Neutrophils % 80 % Lymphocytes % 7 % Monocytes % 9 % Eosinophils % 2 % Basophils % 0 % Neutrophils # 5.4 (1.3-7.7) k/uL Lymphocytes # 0.5 L (1.0-4.8) k/uL Monocytes # 0.6 (0-1.0) k/uL Eosinophils # 0.1 (0-0.7) k/uL Basophils # 0.0 (0-0.2) k/uL PT (9.0-12.0) sec INR (<1.2) APTT (22.0-30.0) sec Sodium 137 (137-145) mmol/L Potassium 4.6 (3.5-5.1) mmol/L Chloride 106 (98-107) mmol/L Carbon Dioxide 25 (22-30) mmol/L Anion Gap 6 mmol/L BUN 23 H (9-20) mg/dL Creatinine 0.80 (0.66-1.25) mg/dL Est GFR (CKD-EPI)AfAm >90 (>60 ml/min/1.73 sqM) Est GFR (CKD-EPI)NonAf 80 (>60 ml/min/1.73 sqM) Glucose 133 H (74-99) mg/dL Plasma Lactic Acid Mark 1.7 (0.7-2.0) mmol/L Calcium 9.3 (8.4-10.2) mg/dL Magnesium 2.0 (1.6-2.3) mg/dL Total Bilirubin 0.9 (0.2-1.3) mg/dL AST 38 (17-59) U/L ALT 20 L (21-72) U/L Alkaline Phosphatase 71 (38-126) U/L Troponin I (0.000-0.034) ng/mL Total Protein 6.5 (6.3-8.2) g/dL Albumin 3.6 (3.5-5.0) g/dL TSH 1.660 (0.465-4.680) mIU/L Urine Color Urine Appearance (Clear) Urine pH (5.0-8.0) Ur Specific [place] (1.001-1.035) Urine Protein (Negative) Urine Glucose (UA) (Negative) Urine Ketones (Negative) Urine Blood (Negative) Urine Nitrite (Negative) Urine Bilirubin (Negative) Urine Urobilinogen (<2.0) mg/dL Ur Leukocyte Esterase (Negative) Urine RBC (0-5) /hpf Urine WBC (0-5) /hpf Ur Squamous Epith Cells (0-4) /hpf Amorphous Sediment (None) /hpf Urine Bacteria (None) /hpf Hyaline Casts (0-2) /lpf Urine Mucus (None) /hpf 03/18/19 03/18/19 03/19/19 Range/Units 22:21 22:21 00:10 WBC (3.8-10.6) k/uL RBC (4.30-5.90) m/uL Hgb (13.0-17.5) gm/dL Hct (39.0-53.0) % MCV (80.0-100.0) fL MCH (25.0-35.0) pg MCHC (31.0-37.0) g/dL RDW (11.5-15.5) % Plt Count (150-450) k/uL Neutrophils % % Lymphocytes % % Monocytes % % Eosinophils % % Basophils % % Neutrophils # (1.3-7.7) k/uL Lymphocytes # (1.0-4.8) k/uL Monocytes # (0-1.0) k/uL Eosinophils # (0-0.7) k/uL Basophils # (0-0.2) k/uL PT 11.9 (9.0-12.0) sec INR 1.1 (<1.2) APTT 24.2 (22.0-30.0) sec Sodium (137-145) mmol/L Potassium (3.5-5.1) mmol/L Chloride (98-107) mmol/L Carbon Dioxide (22-30) mmol/L Anion Gap mmol/L BUN (9-20) mg/dL Creatinine (0.66-1.25) mg/dL Est GFR (CKD-EPI)AfAm (>60 ml/min/1.73 sqM) Est GFR (CKD-EPI)NonAf (>60 ml/min/1.73 sqM) Glucose (74-99) mg/dL Plasma Lactic Acid Mark (0.7-2.0) mmol/L Calcium (8.4-10.2) mg/dL Magnesium (1.6-2.3) mg/dL Total Bilirubin (0.2-1.3) mg/dL AST (17-59) U/L ALT (21-72) U/L Alkaline Phosphatase (38-126) U/L Troponin I 0.031 (0.000-0.034) ng/mL Total Protein (6.3-8.2) g/dL Albumin (3.5-5.0) g/dL TSH (0.465-4.680) mIU/L Urine Color Yellow Urine Appearance Clear (Clear) Urine pH 5.0 (5.0-8.0) Ur Specific [place] 1.028 (1.001-1.035) Urine Protein Trace H (Negative) Urine Glucose (UA) Negative (Negative) Urine Ketones Negative (Negative) Urine Blood Negative (Negative) Urine Nitrite Negative (Negative) Urine Bilirubin Negative (Negative) Urine Urobilinogen <2.0 (<2.0) mg/dL Ur Leukocyte Esterase Moderate H (Negative) Urine RBC 2 (0-5) /hpf Urine WBC 13 H (0-5) /hpf Ur Squamous Epith Cells 1 (0-4) /hpf Amorphous Sediment Rare H (None) /hpf Urine Bacteria Rare H (None) /hpf Hyaline Casts 9 H (0-2) /lpf Urine Mucus Moderate H (None) /hpf Disposition Clinical Impression: Generalized weakness Disposition: ADMITTED IP TO THIS HOSP Condition: Stable Is patient prescribed a controlled substance at d/c from ED?: No
[2019-03-18 22:33] LABS: Basophils % (A) 0 %; Eosinophils # (A) 0.1 k/uL (0-0.7); Eosinophils % (A) 2 %; HGB 14.7 gm/dL (13.0-17.5); Lymphocytes # (A) 0.5 k/uL (1.0-4.8); Lymphocytes % (A) 7 %; MCH 31.4 pg (25.0-35.0); MCV 98.1 fL (80.0-100.0); Mean Platelet Volume 7.5; Monocytes # (A) 0.6 k/uL (0-1.0); Monocytes % (A) 9 %; Neutrophils # (A) 5.4 k/uL (1.3-7.7); Neutrophils % (A) 80 %; Platelet Count 139 k/uL (150-450); RBC 4.69 m/uL (4.30-5.90); RDW 13.1 % (11.5-15.5); WBC 6.7 k/uL (3.8-10.6)
[2019-03-18 22:44] LABS: ALT 20 U/L (21-72); AST 38 U/L (17-59); Albumin 3.6 g/dL (3.5-5.0); Alkaline Phosphatase 71 U/L (38-126); Anion Gap 6 mmol/L; Blood Urea Nitrogen 23 mg/dL (9-20); Calcium 9.3 mg/dL (8.4-10.2); Carbon Dioxide 25 mmol/L (22-30); Chloride 106 mmol/L (98-107); Glucose 133 mg/dL (74-99); Sodium 137 mmol/L (137-145); Total Bilirubin 0.9 mg/dL (0.2-1.3); Total Protein 6.5 g/dL (6.3-8.2)
[2019-03-18 22:48] LABS: Potassium 4.6 mmol/L (3.5-5.1)
[2019-03-18 22:54] LABS: INR 1.1 (<1.2); Partial Thromboplastin Time 24.2 sec (22.0-30.0); Prothrombin Time 11.9 sec (9.0-12.0)
--- NOTE | 2019-03-19 04:09 | XR ---
History: ITS.REASON XR Reason: Weakness Exam: XR CXR 2 VIEWS Comparison: 08/01/2017 FINDINGS: Patchy perihilar opacities appears more focal at the right upper to midlung may represent asymmetric edema with possibility of multifocal pneumonia a consideration, clinically correlate. Appearance of a small left pleural effusion. Dual-chamber pacemaker, status post median sternotomy, enlarged appearing cardiac silhouette and trans-aortic valve replacement. IMPRESSION: Patchy perihilar opacities appears more focal at the right upper to midlung may represent asymmetric edema with possibility of multifocal pneumonia a consideration, clinically correlate. Appearance of a small left pleural effusion. Dual-chamber pacemaker, status post median sternotomy, enlarged appearing cardiac silhouette and trans-aortic valve replacement.
--- NOTE | 2019-03-19 07:04 | P.HPIM ---
History of Present Illness H&P Date: 03/19/19 Chief Complaint: generalized weakness 88-year-old male with significant past cardiac historyincluding ischemic cardiomyopathy, CAD status post CABG, aortic stenosis status post however, paroxysmal A. fib on blood thinners. Patient unable to provide any meaningful history at this time, patient has some mild cognitive impairment and will only tell me old stories whenever asked any question.patient is disoriented to place and date and only oriented to person. Family is not immediately available for further information., electronic medical records were not available for review of ER notes. Information was obtained by talking to the patient, patient nurse, and ER doctor over the phone. however during my interview with the patient he did not stop coughing the whole interview time he denies any chest pain or trouble breathing denies any fevers or chills he denies any abdominal pain however this is unreliable as the patient just answers no to all my questions he denies any falls at home again this is unreliable. Further information should be obtained once family is available. Upon revision of ER workup seems like his chest x-ray showed some perihilar right-sided infiltrate suspicious for pneumonia with his clinical picture of coughing I would treat the patient for pneumonia during this hospital stay. Review of Systems unable to obtain meaningful review of systems due to patient mild cognitive impairment, however he was answering no to all my questions Past Medical History Past Medical History: Coronary Artery Disease (CAD), Hyperlipidemia, Myocardial Infarction ([place]), Pneumonia Additional Past Medical History / Comment(s): Bilat cataract surgery, irregular heart rhythum, SOB, "rt foot shorter than left foot", Last Myocardial Infarction Date:: 1991 approx History of Any Multi-Drug Resistant Organisms: None Reported Past Surgical History: Back Surgery, Coronary Bypass/CABG, Heart Catheterization, Pacemaker, Tonsillectomy Additional Past Surgical History / Comment(s): tan cataracts, triple bypass grafting in 1995, cardiac catheterization in 2007 and 2016 , rt foot surgery as , pacemaker 07/31/17, aortic valve replaced 11/2017 Past Anesthesia/Blood Transfusion Reactions: No Reported Reaction Type of Cardiac Device: Permanent Pacemaker Device Placement Date:: [facility] 07/31/17 Past Psychological History: No Psychological Hx Reported Smoking Status: Former smoker Past Alcohol Use History: None Reported Past Drug Use History: None Reported - Past Family History Mother Family Medical History: Cancer Father Family Medical History: Cancer Additional Family Medical History / Comment(s): Lung CA Medications and Allergies Home Medications Medication Instructions Recorded Confirmed Type Simvastatin [Zocor] 20 mg PO HS 01/26/16 03/18/19 History Losartan Potassium [Cozaar] 25 mg PO DAILY 07/26/17 03/18/19 History Ascorbic Acid [Vitamin C] 500 mg PO DAILY 04/04/18 03/18/19 History Cholecalciferol [Vitamin D3 (25 1,000 unit PO DAILY 04/04/18 03/18/19 History Mcg = 1000 Iu)] Cyanocobalamin [Vitamin B-12] 500 mcg PO DAILY 04/04/18 03/18/19 History Apixaban [Eliquis] 2.5 mg PO BID 03/18/19 03/18/19 History Famotidine [Pepcid] 40 mg PO PC-BRKFST 03/18/19 03/18/19 History Fish Oil/Dha/Epa [Fish Oil 1,200 1 cap PO DAILY 03/18/19 03/18/19 History mg Fish Oil] Metoprolol Tartrate [Lopressor] 12.5 mg PO BID 03/18/19 03/18/19 History Allergies Allergy/AdvReac Type Severity Reaction Status Date / Time No Known Allergies Allergy Verified 03/18/19 22:40 Physical Exam Vitals: Vital Signs Temp Pulse Resp BP Pulse Ox 03/18/19 21:57 97.6 F 60 18 153/71 94 L Intake and Output 03/18/19 03/18/19 03/19/19 14:59 22:59 06:59 Other: Weight 63.503 kg Constitutional: No acute distress, patient is pleasant and conversant however he was coughing nonstop during the interview Eyes: Anicteric sclerae, moist conjunctiva, no lid-lag Pupils equal round reactive to light ENMT: NC/AT Oropharynx clear, no erythema, orexudates Neck: Supple, FROM, no masses, or JVD No carotid bruits No thyromegaly Lungs: decreased breath sounds over left lung base, rhonchorous breathing over the right side of the lung Clear to percussion Normal respiratory effort, no accessory muscle use Cardiovascular: Heart regular in rate and rhythm, systolic murmur, no gallops, or rubs No peripheral edema Abdominal: Soft Nontender, no guarding, rebound or rigidity Abdomen moving with respiration Normoactive bowel sounds No hepatomegaly, No splenomegaly No palpable mass No abdominal wall hernia noted Skin: Normal temperature, tone, texture, turgor No induration No subcutaneous nodules No rash, lesions No ulcers Extremities: No digital cyanosis No clubbing Pedal pulses intact and symmetrical Radial pulses intact and symmetrical No calf tenderness Psychiatric: Alert and oriented to person only Appropriate affect 4judgment Neuro Muscles Strength 4/5 in all 4 extremities Sensation to light touch grossly present throughout Cranial nerves II-XII grossly intact No focal sensory deficits Lymphatics: no palpable cervical or supraclavicular , or inguinal lymph nodes Results CBC & Chem 7: 03/18/19 22:21 03/18/19 22:21 Labs: Abnormal Lab Results - Last 24 Hours (Table) 03/18/19 03/18/19 Range/Units 22:21 22:21 Plt Count 139 L (150-450) k/uL Lymphocytes # 0.5 L (1.0-4.8) k/uL BUN 23 H (9-20) mg/dL Glucose 133 H (74-99) mg/dL ALT 20 L (21-72) U/L Assessment and Plan Assessment: 88-year-old male with significant past medical history for paroxysmal A. fib with RVR chronic systolic CHF and aortic stenosis status post replacement admitted as an inpatient with anticipated length of stay more than 48 hours due to community-acquired pneumonia and generalized weakness. Patient will require PT/OT evaluation for further recommendations will be started on IV antibiotics for now Plan: community-acquired pneumonia generalized weakness and debility Dehydration fall precautions PT/OT evaluation Gentle IV fluid hydration Swallow eval follow-up cultures Start azithromycin and Rocephin mild cognitive impairment Chronic conditions Paroxysmal A. fib on anticoagulation Aortic valve stenosis status post TAVR replacement ischemic cardiomyopathy with chronic systolic CHF most recent echo showing EF of 45-40% Hypertension Hyperlipidemia carotid artery stenosis chronic history of CAD status post CABG Surrogate decision-maker: patient was unable to name CODE STATUS:patient was unable to determine DVT prophylaxis: on blood thinner for A. fib Discussed with: Patient, ER,RN Anticipated discharge: less than48 [address]: pending clinical course A total of 55minutes was spent on the care of this complex patient more than 50% of the time was spent in counseling and care coordination.
[2019-03-19 08:28] LABS: Amorphous Sediment,Urine Rare /hpf; Appearance,Urine Clear (Clear); Bacteria,Urine Rare /hpf; Bilirubin,Urine Negative (Negative); Blood,Urine Negative (Negative); Color,Urine Yellow; Glucose,Urine (UA) Negative (Negative); Hyaline Casts,Urine 9 /lpf (0-2); Ketones,Urine Negative (Negative); Leukocyte Esterase,Urine Moderate (Negative); Mucus,Urine Moderate /hpf; Nitrite,Urine Negative (Negative); Protein,Urine Trace (Negative); RBC,Urine 2 /hpf (0-5); Specific Gravity,Urine 1.028 (1.001-1.035); Squamous Epithelial Cell,Urine 1 /hpf (0-4); Urobilinogen,Urine <2.0 mg/dL (<2.0); WBC,Urine 13 /hpf (0-5)
[2019-03-19] MEDS: FAMOTIDINE 20 MG TAB PO SCH (09:37)
[2019-03-19] MEDS: METOPROLOL TARTRATE 12.5 MG TAB PO SCH ×2 (09:38→20:47)
[2019-03-19] MEDS: AZITHROMYCIN 500 MG TAB PO SCH (09:38)
[2019-03-19] MEDS: SODIUM CHLORIDE 0.9% 1,000 ML IV SCH ×2 (09:38→20:47)
[2019-03-19] MEDS: APIXABAN 2.5 MG TABLET PO SCH ×2 (09:38→20:47)
[2019-03-19] MEDS: LOSARTAN 25 MG TAB PO SCH (09:38)
[2019-03-19] MEDS: ATORVASTATIN 10 MG TAB PO SCH (20:47)
[2019-03-20] MEDS: METOPROLOL TARTRATE 12.5 MG TAB PO SCH ×2 (07:52→20:37)
[2019-03-20] MEDS: FAMOTIDINE 20 MG TAB PO SCH (07:53)
[2019-03-20] MEDS: AZITHROMYCIN 500 MG TAB PO SCH (07:53)
[2019-03-20] MEDS: APIXABAN 2.5 MG TABLET PO SCH ×2 (07:53→20:37)
[2019-03-20] MEDS: LOSARTAN 25 MG TAB PO SCH (07:53)
[2019-03-20] MEDS: SODIUM CHLORIDE 0.9% 1,000 ML IV SCH ×2 (10:55→20:46)
[2019-03-20] MEDS: ATORVASTATIN 10 MG TAB PO SCH (20:37)
[2019-03-20] MEDS ORDERED: RX INFO: IV CONTRAST WAS GIVEN 1 EACH MISC MISCELLANE PRN (21:01)
--- NOTE | 2019-03-20 21:37 | PN ---
PROGRESS NOTE DATE OF SERVICE: March 20, 2019. PRESENTING COMPLAINT: Weakness. INTERVAL HISTORY: When I came to the room, the patient's and daughter were present. I tried to get a more detailed history from the . The patient is currently being treated for pneumonia. stated that the patient entered the house, the patient had come back from shopping and normally he would put the bags near the door and she would carry them in, but patient went inside and sat on the chair near the garage door and was just feeling weak and not himself. at the bedside. He was still feeling rather weak. went into the bathroom and patient was then in the living room and apparently had crawled up there. Still feeling very weak. She did not notice any weakness in a particular side. There is no facial asymmetry. No change in his speech. No fever and chills. He denies any pain or injury. While I was present, I woke up the patient who had not sleep too well last night. The patient's daughter started feeding him, patient was actually tolerating his food and able to answer simple questions. REVIEW OF SYSTEMS: Done for constitutional, cardiovascular, GI, pulmonary, neuro, relevant findings as above. CURRENT MEDICATIONS: Reviewed that include IV ceftriaxone, Eliquis. PHYSICAL EXAMINATION: VITAL SIGNS: Afebrile. Pulse 59, respiration 16, blood pressure 115/68. Pulse ox 96% on room air. GENERAL APPEARANCE: Lying in bed, awake. EYES: Pupils equal. Conjunctivae normal. NECK: JVD not raised. Mass not palpable. RESPIRATORY: Effort normal. Lungs fair entry. CARDIOVASCULAR: Heart sounds irregular. No edema. ABDOMEN: Soft, nontender. Liver and spleen not palpable. NEUROLOGICAL: Pupils equal. No facial asymmetry. Able to lift both arms off the bed. Able to lift both legs off the bed. Some increased reflexes on the right leg. LABORATORY DATA: White count 6.7, hemoglobin 14.7, potassium 4.6. BUN 23, creatinine 0.80. With physical therapy, he walked about 14 feet with a rolling walker. His right knee was somewhat flexed. There was some dragging of the right foot. ASSESSMENT: 1. Pneumonia suspect gram-negative organism. 2. The patient did have weakness, some increased reflex in the right leg, but has got fair strength when I examined him in the bed. The patient is already on Eliquis, but we will do a CT scan of the brain to make sure nothing else is going on. Also we will do a CT scan of the thoracolumbar spine and cervical spine without contrast and see how he does. The patient is already on a blood thinner. We will hold off any aspirin for right now. We will also add a carotid Doppler. 3. Persistent atrial fibrillation with a pacemaker in place. 4. Coronary artery disease with prior history of coronary bypass. 5. Gastroesophageal reflux disease. 6. Hyperlipidemia. 7. Ischemic cardiomyopathy. 8. Complete heart block with pacemaker. 9. Right internal jugular thrombosis. 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 11.Osteoarthritis. 12.TAVR at [facility]. Total time about 45 minutes was spent today with the patient with over 20 to 25 minutes of discussion. TABATHA / MARGARITA: [id number] /
[2019-03-21] MEDS: APIXABAN 2.5 MG TABLET PO SCH ×2 (08:21→21:55)
[2019-03-21] MEDS: FAMOTIDINE 20 MG TAB PO SCH (08:21)
[2019-03-21] MEDS: AZITHROMYCIN 500 MG TAB PO SCH (08:21)
[2019-03-21] MEDS: LOSARTAN 25 MG TAB PO SCH (08:21)
[2019-03-21] MEDS: METOPROLOL TARTRATE 12.5 MG TAB PO SCH ×2 (08:21→21:55)
--- NOTE | 2019-03-21 08:31 | US ---
EXAMINATION TYPE: US carotid duplex BILAT DATE OF EXAM: 03/21/2019 COMPARISON: Prior exam dated 01/27/2016 CLINICAL HISTORY: weakness. EXAM MEASUREMENTS: RIGHT: Peak Systolic Velocity (PSV) cm/sec ----- Right CCA: 60.1 ----- Right ICA: 103.0 ----- Right ECA: 101.1 ICA/CCA ratio: 1.7 RIGHT: End Diastole cm/sec ----- Right CCA: 7.8 ----- Right ICA: 16.3 ----- Right ECA: 0.0 LEFT: Peak Systolic Velocity (PSV) cm/sec ----- Left CCA: 53.8 ----- Left ICA: 103.5 ----- Left ECA: 82.7 ICA/CCA ratio: 1.9 LEFT: End Diastole cm/sec ----- Left CCA: 8.3 ----- Left ICA: 16.8 ----- Left ECA: 0.0 VERTEBRALS (direction of flow): Right Vertebral: Antegrade Left Vertebral: Antegrade Rhythm: Normal Bilateral wall thickening. No elevated velocities or significant stenosis. Plaque seen in bilateral CCA's. Incidental finding: Internal visual echogenic echoes seen within left IJV, no vascular flow seen in p reahn/mid distal region. Grayscale, color Doppler, spectral Doppler imaging performed. Waveform analysis does not show significant stenosis of the proximal internal carotid arteries. IMPRESSION: No hemodynamic significant stenosis of the proximal internal carotid arteries bilaterall y by Doppler criteria, an indirect measurement of carotid stenosis. Deep venous thrombosis involvin g the left internal jugular vein. A Red level critical message alert has been initiated for Ramon Haro MD via the [employer] Critical Results System on 03/21/2019 8:28 AM. This message alert has been sent to Ramon Haro MD via the preferences provided by the clinician for the receipt of Radiology Critical Findings. Message ID [id number].
[2019-03-21] MEDS ORDERED: HEPARIN SODIUM,PORCINE 10,000 UNIT/ML 1 ML VIAL IV ONE (09:52)
[2019-03-21] MEDS ORDERED: HEPARIN SODIUM,PORCINE 5,000 UNIT/ML 1 ML VIAL IV PRN (09:52)
[2019-03-21] MEDS ORDERED: HEPARIN SOD,PORK IN 0.45% NACL 25,000 UNIT in 0.45% NACL 1 250ML.BAG IV SCH (10:00)
--- NOTE | 2019-03-21 11:39 | CT ---
EXAMINATION TYPE: CT brain wo con DATE OF EXAM: 03/21/2019 COMPARISON: 11/15/2018 HISTORY: Patient poor historian. Altered mental status and weakness. CT DLP: 1103.5 mGycm Automated exposure control for dose reduction was used. TECHNIQUE: CT scan of the head is performed without contrast. FINDINGS: There is no acute intracranial hemorrhage or midline shift identified. There is diffuse v entricular and sulcal prominence consistent with diffuse age-related cerebral atrophy. There is low- attenuation in the periventricular white matter consistent with chronic small vessel ischemic change. Mild mucosal thickening is seen within the right maxillary sinus and ethmoid sinuses. Remaining para nasal sinuses and mastoid air cells are well aerated. Atherosclerosis is incidentally noted of the in tracranial vasculature. Scleral calcifications are also present. Old lacunar injuries are seen of the bilateral basal ganglia. IMPRESSION: 1. No acute intracranial hemorrhage or midline shift. 2. Diffuse age-related cerebral atrophy and diffuse confluent chronic small vessel ischemic change as seen on the prior. Normal pressure hydrocephalus could also be considered. 3. Punctate old lacunar and bilateral basal ganglia.
--- NOTE | 2019-03-21 11:52 | P.CNNES ---
History of Present Illness Consult date: 03/21/19 Requesting physician: Ramon Haro Reason for Consult: AMS/BLE weakness Chief complaint: "I don't know why I'm here" History of Present Illness: This is a pleasant 88 RH male currently being treated for pneumonia. On the day of admission, patient reportedly had come back from grocery shopping when he complained of feeling diffusely weak and not feeling himself. There was no laterality of his neurologic complaints. There was no witnessed facial droop, dysarthria, tremors, bowel or bladder incontinence, seizure-like activity or ataxia. Patient does have a history of dementia for several years and gets intermittently confused. However, normally he can walk around and generally independent with his basic activities of daily living. According to RN patient was able to walk around the bed with PT yesterday. He is able to superintendent transmission without difficulty. Patient does not have any current neurological complaints. No pain or headache. He is on DOAC with a history of paroxysmal atrial fibrillation. Carotid U/S back in October 2018 revealed a left internal jugular vein deep vein thrombosis. There is consideration from the primary team to switch his anticoagulation to heparinization during his acute stay. Primary team already ordered neuroimaging including CT head with contrast and CT of the entire spine without contrast. Family is very concerned about contrast administration as th ey recall previously that he might be ALLERGIC to contrast. Review of Systems Unable to obtain from patient due to altered mental status. Past Medical History Past Medical History: Atrial Fibrillation, Coronary Artery Disease (CAD), Chest Pain / Angina, Dementia, GERD/Reflux, Hyperlipidemia, Myocardial Infarction ([place]), Pneumonia, Vascular Disorder Additional Past Medical History / Comment(s): Ischemic cardiomyopathy, PFO, aortic valve disease with surgery, paroxysmal afib, CHB with pacer, caratid kevin ry disease, R internal jugular thrombosis, 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 Last Myocardial Infarction Date:: 1995 History of Any Multi-Drug Resistant Organisms: None Reported Past Surgical History: Adenoidectomy, Back Surgery, Coronary Bypass/CABG, Heart Catheterization, Hernia Repair, Pacemaker, Tonsillectomy Additional Past Surgical History / Comment(s): 1995 CABG-2 vessel, HE, 11/2017 TAVR at [facility], arch study, lumbar laminectomy, bilateral carpal tunnel releases, R foot surgery as an infant, bilateral cataract removal/lens implants, colonoscopy, L inguinal hernia repair. Past Anesthesia/Blood Transfusion Reactions: No Reported Reaction Type of Cardiac Device: Permanent Pacemaker Device Placement Date:: [facility] 07/31/17 Smoking Status: Former smoker - Past Family History Mother Family Medical History: Cancer Additional Family Medical History / Comment(s): Colon cancer. Father Family Medical History: Cancer Additional Family Medical History / Comment(s): Lung CA Medications and Allergies Home Medications Medication Instructions Recorded Confirmed Type Simvastatin [Zocor] 20 mg PO HS 01/26/16 03/18/19 History Losartan Potassium [Cozaar] 25 mg PO DAILY 07/26/17 03/18/19 History Ascorbic Acid [Vitamin C] 500 mg PO DAILY 04/04/18 03/18/19 History Cholecalciferol [Vitamin D3 (25 1,000 unit PO DAILY 04/04/18 03/18/19 History Mcg = 1000 Iu)] Cyanocobalamin [Vitamin B-12] 500 mcg PO DAILY 04/04/18 03/18/19 History Apixaban [Eliquis] 2.5 mg PO BID 03/18/19 03/18/19 History Famotidine [Pepcid] 40 mg PO PC-BRKFST 03/18/19 03/18/19 History Fish Oil/Dha/Epa [Fish Oil 1,200 1 cap PO DAILY 03/18/19 03/18/19 History mg Fish Oil] Metoprolol Tartrate [Lopressor] 12.5 mg PO BID 03/18/19 03/18/19 History Allergies Allergy/AdvReac Type Severity Reaction Status Date / Time No Known Allergies Allergy Verified 03/18/19 22:40 Physical Examination - Vital Signs Vital Signs: Vital Signs Temp Pulse Resp BP Pulse Ox 03/21/19 08:00 20 03/21/19 07:05 98.2 F 60 20 171/83 90 L 03/21/19 03:37 98.4 F 60 16 163/74 97 03/21/19 01:06 20 93 L 03/21/19 00:45 81 L 03/20/19 21:28 98.8 F 59 L 16 176/80 97 03/20/19 15:00 97.8 F 60 14 134/73 89 L Intake and Output 03/20/19 03/21/19 03/21/19 22:59 06:59 14:59 Output Total 225 Balance -225 Output: Urine 225 Other: Voiding Method Bedside Commode Incontinent # Voids 1 1 Gen NAD Pleasant and cooperative HEENT NCAT Sclera without icterus O/P clear Neck Supple No carotid bruit Cor RRR no m/r/g Lungs CTAB Abd Soft NTND +BS Ext Warm to touch No edema Neuro MS A+Ox1 Speech is fluent but with semantic paraphrasia, circumlocution and pe rseveration No echolalia or echopraxia Thinks he's in the office Cannot recite Lord's prayer Does not know who the President of the [employer] is CN PERRL VFF no APD EOMI no nystagmus or SALTY No facial asymmetry Masseter's symmetric Hearing intact to normal voice bilaterally Speech not dysarthric Equal elevation of palate Tongue midline Sym shrug and SCM bilaterally Motor Decreased bulk in RLE h/o Polio Normal tone No pronator or leg drift or tremors Strength 4+/5 sym throughout Sens Intact to LT x4 No neglect or extinction Coord No dysmetria on FTN bilaterally DTRs 2+/4 sym throughout except 2+/4 right quadriceps and 1+/4 left quadriceps Toes mute bilaterally No clonus at achilles Gait Deferred NIHSS 1-orientation Results - Laboratory Findings CBC and BMP: 03/18/19 22:21 03/18/19 22:21 Abnormal Lab Findings: Abnormal Labs 03/18/19 03/18/19 03/19/19 22:21 22:21 00:10 Plt Count 139 L Lymphocytes # 0.5 L BUN 23 H Glucose 133 H ALT 20 L Urine Protein Trace H Ur Leukocyte Esterase Moderate H Urine WBC 13 H Amorphous Sediment Rare H Urine Bacteria Rare H Hyaline Casts 9 H Urine Mucus Moderate H - Diagnostic Findings Additional findings: Carotid duplex 03/21/2019. No hemodynamic significant stenosis of the proximal internal carotid arteries bilaterally by Doppler criteria. Deep vein thrombosis involving the left internal jugular vein. I have reviewed all neuroimages myself. Assessment and Plan Assessment: Altered mental status due to metabolic encephalopathy from pneumonia in the setting of dementia. r/o ICH as he is on DOAC. Weakness. He has focal RLE atrophy and weakness with h/o Polio, but the remainder of his neuro exam is not particularly lateralizing. Low index of suspicion of epidural hematoma, which will be ruled out with CT parham-spine. Plan: -Explained that definitive treatment for DVT and PAF is anticoagulation that patient is already on. With DOAC, compared with heparin gtt and warfarin, we lose the ability to monitor therapeutic effects. -If primary team wishes to switch his anticoagulation to heparin gtt, let's make sure he has not bled anywhere into his HEALTH OUTCOMES LIAISON/PNS to explain his abrupt neurological changes. -However, due to the lack of focality on exam and his altered mental status in the setting of pneumonia and dementia, my current impression is metabolic encephalopathy. -Will follow up CT results. -Reviewed carotid duplex results from 03/21/19 with family at bedside. -Extended [id number] discussion held with RN and patient's family at bedside to discuss all my clinical impressions and recommendations. All questions answered. -Dr. Denise will be on-call this weekend. Thank you for this consultation. Please call with ?. Time with Patient: Greater than 30 (Time spent in direct patient care, greater than 50% of which was spent in [id number] counseling and coordination of care: 70 minutes.)
--- NOTE | 2019-03-21 12:04 | CT ---
EXAMINATION TYPE: CT CervThorLumbar spine wo con DATE OF EXAM: 03/21/2019 COMPARISON: Chest x-ray dated 08/01/2017 HISTORY: Patient poor historian CT DLP: 1181.5 mGycm Automated exposure control for dose reduction was used. FINDINGS: There is a dextroscoliosis of the lumbosacral junction and levoscoliosis of the lower lumbar spine. T his limits evaluation for neural foraminal narrowing as does the large [id number]. There is reversal of the usual cervical lordosis and degenerative changes of the atlantodental interv al. Multilevel disc osteophyte complexes are seen of the cervical spine. No vertebral body height los s. At C3-C4 there is mild bilateral neural foraminal narrowing, at C4-C5 there is also mild bilateral neural foraminal narrowing, at C5-C6 there is severe bilateral neural foraminal narrowing, and C6-C7 there is moderate bilateral neural foraminal narrowing. There appears to be mild spinal canal stenos is at C4-C7. No vertebral body height loss or malalignment is seen within the thoracic spine. Evaluation of disc d isease is limited on CT. No high-grade spinal canal stenosis Multilevel facet arthropathy and intervertebral disc space narrowing are seen of the lumbar spine wit h anterior osteophytes. Mild bilateral neural foraminal narrowing is seen at L1-L2, moderate left and mild right neural foraminal narrowing at L2-L3, moderate bilateral neural foraminal narrowing at L3- L4, moderate to severe right and moderate left neural foraminal narrowing at L4-L5, and mild bilatera l neural foraminal narrowing at L5-S1. There appears to be mild spinal canal stenosis at L2-L3, L3-L4 and possibly at L4-L5 that would be better evaluated with MRI. No evidence of vertebral body height loss or malalignment of the lumbar spine. Atherosclerosis of the carotid arteries is incidentally seen. Post CABG changes of the chest are note d. Cardiac silhouette is enlarged. Small layering pleural effusions, right greater than left are pres ent with patchy groundglass opacities and interlobular septal thickening throughout the right lung. T hese have an apical predominance. Few prominent mediastinal lymph nodes are poorly defined without co ntrast is needed reactive. There is aneurysmal dilatation of the abdominal aorta measuring 3.6 x 3.7 cm that is fusiform without extent into the common iliac arteries. More distally the common iliac arteries are aneurysmal measur ing 1.5 cm on the left and approaching aneurysm on the right measuring 1.4 cm. No dilated bowel. Poss ible left renal cysts are incompletely evaluated without contrast. Hazy mesentery throughout may rela te to volume overload. Anasarca is partially visualized. Small hiatal hernia is present. IMPRESSION: 1. No evidence of vertebral body height loss or malalignment throughout the spine. Dextroscoliosis of the thoracic lumbar junction and levoscoliosis of the lumbar spine are present with multilevel degen erative disc disease and multilevel spinal canal stenosis as described above that would all be better evaluated with MRI. 2. Multifocal groundglass and reticular opacity throughout the right lung is most suspicious for mult ifocal pneumonia. Mediastinal adenopathy is poorly defined but likely reactive. 3. Infrarenal abdominal aortic aneurysm measuring up to 3.7 cm, fusiform in nature. 4. Small pleural effusions, right greater than left. 5. Anasarca and haziness of abdomen may relate to fluid overload.
[2019-03-21 12:22] LABS: Basophils % (A) 0 %; Eosinophils # (A) 0.1 k/uL (0-0.7); Eosinophils % (A) 1 %; HCT 43.7 % (39.0-53.0); HGB 13.7 gm/dL (13.0-17.5); Lymphocytes # (A) 0.5 k/uL (1.0-4.8); Lymphocytes % (A) 6 %; MCH 30.6 pg (25.0-35.0); MCHC 31.3 g/dL (31.0-37.0); MCV 97.7 fL (80.0-100.0); Mean Platelet Volume 8.4; Monocytes # (A) 0.6 k/uL (0-1.0); Monocytes % (A) 7 %; Neutrophils # (A) 7.2 k/uL (1.3-7.7); Neutrophils % (A) 85 %; Platelet Count 120 k/uL (150-450); RBC 4.47 m/uL (4.30-5.90); RDW 13.4 % (11.5-15.5); WBC 8.5 k/uL (3.8-10.6)
[2019-03-21 12:29] LABS: INR 1.2 (<1.2); Partial Thromboplastin Time 24.6 sec (22.0-30.0); Prothrombin Time 12.8 sec (9.0-12.0)
[2019-03-21 13:02] VITALS: BMI 19.5
[2019-03-21] MEDS ORDERED: IPRATROPIUM-ALBUTEROL 3 ML NEB INHALATION PRN (15:07)
--- NOTE | 2019-03-21 15:07 | P.CNPUL ---
History of Present Illness Consult date: 03/21/19 Requesting physician: Ramon Haro Reason for consult: other Chief complaint: Weakness, lethargy, probable right upper lung pneumonia History of present illness: This is a 88-year-old white male patient of Dr. Parr, with past medical history of coronary artery disease status post bypass grafting, hyperlipidemia, previous myocardial infarction, permanent pacemaker implantation, aortic valve stenosis status post aortic valve replacement in 2018, remote history of smoking, and dementia who was brought into the hospital on 03/18/2019 for evaluation of increased weakness, lethargy, inability to walk. Apparently that day patient was on an extended shopping trip with his , and after returning home he was very weak, he sat in the chair, rested for several hours, however in the evening he was unable to get up, he tried to crawl, and he couldn't crawl, his was unable to move him. She end up calling her daughter and her son-in-law, who ended up having to carry him to the car, and taking to the hospital. Family denies patient complaining of any specific complaints prior to presentation, no complaints of shortness of breath, no cough, no congestion, no fever or chills. EKG revealed paced rhythm, with no acute elevations or depressions of the ST segment, no evidence of acute ischemia or infarction. She had generalized weakness of the bilateral lower extremities, but no focal neurologic deficits. CBC and BMP were within normal limits, renal profile electrolytes were normal, plasma lactic acid was 1.7, TSH was 1.660, within normal limits. Urinalysis showed moderate leukocytes, trace protein, 13 WBCs. Troponin was negative at 0.031. Chest x-ray was completed and showed patchy perihilar opacities more focal at the right upper to mid lung that could represent stability of multifocal pneumonia. Brain CT showed no acute intracranial findings, it showed diffuse age-related cerebral atrophy and diffuse confluent chronic small vessel ischemic changes. Possibility of normal pressure hydrocephalus. Punctate old lacunar in bilateral basal ganglia. Blood cultures were negative. Patient is afebrile, he is on supplemental oxygen, 3 L, and his pulse ox ranges from 90-97%, hemodynamically stable. Cervical/lumbar spine CT revealed no evidence of vertebral body height loss or malalignment throughout the spine, multilevel degenerative disc disease, multilevel spinal canal stenosis dextroscoliosis and levoscoliosis of the lumbar spine. There was multifocal ground glass and reticular opacity throughout the right lung most suspicious for multifocal pneumonia. Mediastinal adenopathy was noted, likely reactive. There was infrarenal abdominal aortic aneurysm measuring up to 3.7 cm. And small pleural effusions right greater than left. Carotid Doppler ultra sound showed no hemodynamically significant stenosis, and showed deep venous thrombosis involving the left internal jugular vein. He is on a combination of Zithromax and Rocephin, and were asked to see the patient in evaluation for possibility of pneumonia Review of Systems All systems: negative Constitutional: Reports poor appetite, Reports weakness, Denies chills, Denies fever Eyes: denies blurred vision, denies pain Ears, nose, mouth and throat: Denies headache, Denies sore throat Cardiovascular: Denies chest pain, Denies shortness of breath Respiratory: Denies cough Gastrointestinal: Denies abdominal pain, Denies diarrhea, Denies nausea, Denies vomiting Musculoskeletal: Denies myalgias Integumentary: Denies pruritus, Denies rash Neurological: Denies numbness, Denies weakness Psychiatric: Denies anxiety, Denies depression Endocrine: Denies fatigue, Denies weight change Past Medical History Past Medical History: Atrial Fibrillation, Coronary Artery Disease (CAD), Chest Pain / Angina, Dementia, GERD/Reflux, Hyperlipidemia, Myocardial Infarction ([place]), Pneumonia, Vascular Disorder Additional Past Medical History / Comment(s): Ischemic cardiomyopathy, PFO, aortic valve disease with surgery, paroxysmal afib, CHB with pacer, caratid artery disease, R internal jugular thrombosis, 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 Last Myocardial Infarction Date:: 1995 History of Any Multi-Drug Resistant Organisms: None Reported Past Surgical History: Adenoidectomy, Back Surgery, Coronary Bypass/CABG, Heart Catheterization, Hernia Repair, Pacemaker, Tonsillectomy Additional Past Surgical History / Comment(s): 1995 CABG-2 vessel, HE, 11/2017 TAVR at [facility], arch study, lumbar laminectomy, bilateral carpal tunnel releases, R foot surgery as an infant, bilateral cataract removal/lens implants, colonoscopy, L inguinal hernia repair. Past Anesthesia/Blood Transfusion Reactions: No Reported Reaction Type of Cardiac Device: Permanent Pacemaker Device Placement Date:: [facility] 07/31/17 Smoking Status: Former smoker - Past Family History Mother Family Medical History: Cancer Additional Family Medical History / Comment(s): Colon cancer. Father Family Medical History: Cancer Additional Family Medical History / Comment(s): Lung CA Medications and Allergies Home Medications Medication Instructions Recorded Confirmed Type Simvastatin [Zocor] 20 mg PO HS 01/26/16 03/18/19 History Losartan Potassium [Cozaar] 25 mg PO DAILY 07/26/17 03/18/19 History Ascorbic Acid [Vitamin C] 500 mg PO DAILY 04/04/18 03/18/19 History Cholecalciferol [Vitamin D3 (25 1,000 unit PO DAILY 04/04/18 03/18/19 History Mcg = 1000 Iu)] Cyanocobalamin [Vitamin B-12] 500 mcg PO DAILY 04/04/18 03/18/19 History Apixaban [Eliquis] 2.5 mg PO BID 03/18/19 03/18/19 History Famotidine [Pepcid] 40 mg PO PC-[id number] 03/18/19 03/18/19 History Fish Oil/Dha/Epa [Fish Oil 1,200 1 cap PO DAILY 03/18/19 03/18/19 History mg Fish Oil] Metoprolol Tartrate [Lopressor] 12.5 mg PO BID 03/18/19 03/18/19 History Allergies Allergy/AdvReac Type Severity Reaction Status Date / Time No Known Allergies Allergy Verified 03/18/19 22:40 Physical Exam Vitals: Vital Signs Temp Pulse Resp BP Pulse Ox 03/21/19 08:00 20 03/21/19 07:05 98.2 F 60 20 171/83 90 L 03/21/19 03:37 98.4 F 60 16 163/74 97 03/21/19 01:06 20 93 L 03/21/19 00:45 81 L 03/20/19 21:28 98.8 F 59 L 16 176/80 97 03/20/19 15:00 97.8 F 60 14 134/73 89 L Intake and Output 03/20/19 03/21/19 03/21/19 22:59 06:59 14:59 Output Total 225 Balance -225 Output: Urine 225 Other: Voiding Method Bedside Commode Incontinent # Voids 1 1 3 Weight 63.503 kg GENERAL EXAM: Lethargic, but easily arousable, 88-year-old white male, comfortable in no apparent distress. HEAD: Normocephalic/atraumatic. EYES: Normal reaction of pupils, equal size. Conjunctiva pink, sclera white. NOSE: Clear with pink turbinates. THROAT: No erythema or exudates. NECK: No masses, no JVD, no thyroid enlargement, no adenopathy. CHEST: No chest wall deformity. Symmetrical expansion. LUNGS: Equal air entry with expiratory wheezes CVS: Regular rate and rhythm, normal S1 and S2, no gallops, no murmurs, no rubs ABDOMEN: Soft, nontender. No hepatosplenomegaly, normal bowel sounds, no guarding or rigidity. EXTREMITIES: No clubbing, no edema, no cyanosis, 2+ pulses and upper and lower extremities. MUSCULOSKELETAL: Muscle strength and tone normal. SPINE: No scoliosis or deformity SKIN: No rashes CENTRAL NERVOUS SYSTEM: Lethargic but arousable. No focal deficits, tone is normal in all 4 extremities. Results - Laboratory Findings CBC and BMP: 03/21/19 11:55 03/18/19 22:21 PT/INR, D-dimer PT 12.8 sec (9.0-12.0) H 03/21/19 11:55 INR 1.2 (<1.2) H 03/21/19 11:55 Abnormal lab findings: Abnormal Labs 03/18/19 03/18/19 03/19/19 22:21 22:21 00:10 Plt Count 139 L Lymphocytes # 0.5 L PT INR BUN 23 H Glucose 133 H ALT 20 L Urine Protein Trace H Ur Leukocyte Esterase Moderate H Urine WBC 13 H Amorphous Sediment Rare H Urine Bacteria Rare H Hyaline Casts 9 H Urine Mucus Moderate H 03/21/19 03/21/19 11:55 11:55 Plt Count 120 L Lymphocytes # 0.5 L PT 12.8 H INR 1.2 H BUN Glucose ALT Urine Protein Ur Leukocyte Esterase Urine WBC Amorphous Sediment Urine Bacteria Hyaline Casts Urine Mucus - Diagnostic Findings Chest x-ray: report reviewed, image reviewed Additional studies: Carotid Doppler ultrasounds, EKG, brain CT, CT of the cervical/thoracic/lumbar spine results reviewed Assessment and Plan Plan: Assessment: #1. Acute right upper lung pneumonia community-acquired #2. Weakness, lethargy, inability to ambulate, likely related to the above. Brain CT showed no acute intracranial findings #3. History of coronary artery disease, status post bypass grafting #4. History of aortic valve stenosis, status post aortic valve replacement in 2018 #5. History of permanent pacemaker placement for high degree AV block #6. Previous history of myocardial infarction #7. Hyperlipidemia #8. Dementia #9. History of bilateral cataracts #10. Remote history of smoking #11. History of atrial fibrillation, and the patient is on chronic anticoagulation in the form of Eliquis #12. History of ischemic cardiomyopathy, with some severely impaired left ventricular systolic function, with an EF of 20-25% #13. 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 Rodriguez, patient was seen and examined with Dr. Rodriguez, he will be treated for right upper lung pneumonia, continue with current antibiotic coverage, Zithromax and Rocephin, obtain sputum culture if able. We'll add breathing treatments. Continue to monitor, and make further recommendations. Patient is still lethargic, but arousable, denies any acute complaints, denies any shortness of breath, chest pain, his cough is slightly congested, but nonproductive. Continue with oral anticoagulatiob. We will add nebulized bronchodilators. I performed a history & physical examination of the patient and discussed their management with my nurse practitioner, Selena Villa. I reviewed the nurse practitioner's note and agree with the documented findings and plan of care. Lung sounds are positive for end expiratory wheezes. The findings and the impression was discussed with the patient. I attest to the documentation by the nurse practitioner. Time with Patient: Greater than 30
[2019-03-21] MEDS: IPRATROPIUM-ALBUTEROL 3 ML NEB INHALATION SCH ×2 (16:54→20:17)
[2019-03-21] MEDS: SODIUM CHLORIDE 0.9% 1,000 ML IV SCH (17:23)
[2019-03-21] MEDS: ATORVASTATIN 10 MG TAB PO SCH (21:55)
--- NOTE | 2019-03-21 22:05 | PN ---
PROGRESS NOTE DATE OF SERVICE: March 21, 2019 PRESENTING COMPLAINT: Tired. INTERVAL HISTORY: This morning I was called by the red alert team from Radiology stating there was a DVT in the left internal jugular vein. In the meantime, had ordered a CT scan of the brain with IV contrast last night. The patient's daughter was reluctant for about the same as patient recently had a CT scan. I was concerned of extension of the DVT in the neck into the brain. I did get a report from Dr. Felicita Collazo's office showing there was evidence of the same previously, but I could not tell if this had extended especially given that the patient was still rather lethargic this morning. Spoke to patient's other daughter who was not here present yesterday at length and also spoke to patient's daughter DPOA over the phone the importance for getting the CT scan done to be on the safe side. She did agree to get a CT scan done without contrast. In the meantime, also spoke to Dr. Bolaños from Vascular Surgery to evaluate the patient. Given the concern for the CT scan, I did temporally put the patient on IV heparin and then when the CT scan results came back not showing anything further acute, the IV heparin was discontinued. I also put in a consult for neurology to get their opinion. In the meantime, the CT scan results did come back showing evidence of ground-glass opacity on the predominant right lung, evidence of again pneumonia. The daughter also did inform me that the patient has been having some memory issues at home. REVIEW OF SYSTEMS: Review of systems done for constitutional, cardiovascular, GI, pulmonary; relevant findings as above. Later in the evening, I did see the patient again. The patient did tolerate some diet later in the afternoon. CURRENT MEDICATIONS: Reviewed that include DuoNeb, ceftriaxone, Eliquis. PHYSICAL EXAMINATION: VITAL SIGNS: Afebrile. Pulse 60, respiration 20, blood pressure 163/74, pulse ox 97% on 3 L. GENERAL APPEARANCE: Early in the day patient was rather lethargic, but then in the evening when I came back the patient was more awake. EYES: Pupils are equal. Conjunctivae normal. NECK: JVD unable to assess. Mass not palpable. RESPIRATORY: Effort increased. LUNGS: Decreased breath sounds. CARDIOVASCULAR: Heart sounds irregular. No edema. ABDOMEN: Soft, nontender. Liver and spleen not palpable. PSYCHIATRY: Patient is able to answer some simple questions. INVESTIGATIONS: White count 8.5, hemoglobin 13.7, proBNP 7270. Carotid Doppler showing DVT of the left internal jugular vein. Also the same was stated in the report from Dr. Felicita Collazo's office. Cervical thoraco lumbar spine CT showing evidence of chronic DJD and spinal stenosis. CT scan of the brain showed age-related diffuse changes. ASSESSMENT: 1. Pneumonia suspect gram-negative organism. 2. Acute metabolic encephalopathy from underlying pneumonia. 3. Acute stroke or deep vein thrombosis of the venous system brain now ruled out after extensive workup as above. 4. Thoracolumbar spine degenerative joint disease. 5. Persistent atrial fibrillation with a pacemaker in place with chronic anticoagulation. 6. 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 7. Coronary artery disease with prior history of coronary artery bypass. 8. Gastroesophageal reflux disease. 9. Hyperlipidemia. 10.Complete heart block with a pacemaker. 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 12.Primary osteoarthritis. 13.Diver at [facility]. Total time spent today in critical care management was about 50 minutes with total time spent today was over an hour including discussion. In the evening, I spoke to patient's family again. Patient in the meantime, he will be continued on DuoNeb, Eliquis, ceftriaxone. Consultation also today was made to vascular surgery, neurology and Dr. Rodriguez from Pulmonary. MMODL / MARGARITA: [id number] /
--- NOTE | 2019-03-21 23:05 | CONS ---
CONSULTATION This is an 88-year-old gentleman who was consulted for left IJ DVT. Patient has been admitted with mental status change. The patient had a CT of the brain which showed no infarction. The patient has history of atrial fibrillation on Eliquis. Patient has history of ischemic cardiomyopathy, complete heart block with pacemaker. PHYSICAL EXAMINATION: Patient was seen in his room. The patient is lying comfortably in bed. Neck is supple. CHEST: Clear. ABDOMEN: Soft. Femoral pulses are palpable. Patient has a normal motor function upper and lower extremities. I have reviewed the ultrasound from Dr. Felicita Collazo's office an the patient was seen in October and found to have no hemodynamic stenosis in the carotid artery, but found to have a left jugular vein clot suggestive of a possible chronic in nature and the patient is already on Eliquis. At this point, patient does not need any had heparin and is already on anticoagulation. There is no role of surgical intervention at this point. Discussed with the and the granddaughter. I will discuss with Internal Medicine with Dr. Haro. Thank you for the consultation. MMODL / IJN: [id number] /
[2019-03-22] MEDS: SODIUM CHLORIDE 0.9% 1,000 ML IV SCH ×2 (04:41→15:19)
[2019-03-22] MEDS: METOPROLOL TARTRATE 12.5 MG TAB PO SCH (07:28)
[2019-03-22] MEDS: APIXABAN 2.5 MG TABLET PO SCH (07:28)
[2019-03-22] MEDS: FAMOTIDINE 20 MG TAB PO SCH (07:28)
[2019-03-22] MEDS: LOSARTAN 25 MG TAB PO SCH (07:28)
[2019-03-22] MEDS: IPRATROPIUM-ALBUTEROL 3 ML NEB INHALATION SCH ×4 (08:49→20:26)
[2019-03-22] MEDS: AZITHROMYCIN 500 MG TAB PO SCH (08:50)
[2019-03-22 09:01] LABS: Basophils % (A) 0 %; Eosinophils % (A) 0 %; HCT 46.2 % (39.0-53.0); HGB 14.4 gm/dL (13.0-17.5); Hypochromasia Slight; Lymphocytes # (A) 0.6 k/uL (1.0-4.8); Lymphocytes % (A) 6 %; MCH 30.8 pg (25.0-35.0); MCHC 31.2 g/dL (31.0-37.0); MCV 98.8 fL (80.0-100.0); Mean Platelet Volume 8.1; Monocytes # (A) 0.7 k/uL (0-1.0); Monocytes % (A) 7 %; Neutrophils # (A) 8.4 k/uL (1.3-7.7); Neutrophils % (A) 85 %; Platelet Count 115 k/uL (150-450); RBC 4.67 m/uL (4.30-5.90); RDW 13.2 % (11.5-15.5); WBC 9.9 k/uL (3.8-10.6)
--- NOTE | 2019-03-22 12:56 | P.PN ---
Subjective Progress Note Date: 03/22/19 Principal diagnosis: Right upper lung pneumonia This is a 88-year-old white male patient of Dr. Parr, with past medical history of coronary artery disease status post bypass grafting, hyperlipidemia, previous myocardial infarction, permanent pacemaker implantation, aortic valve stenosis status post aortic valve replacement in 2018, remote history of smoking, and dementia who was brought into the hospital on 03/18/2019 for evaluation of increased weakness, lethargy, inability to walk. Apparently that day patient was on an extended shopping trip with his , and after returning home he was very weak, he sat in the chair, rested for several hours, however in the evening he was unable to get up, he tried to crawl, and he couldn't crawl, his was unable to move him. She end up calling her daughter and her son-in-law, who ended up having to carry him to the car, and taking to the hospital. Family denies patient complaining of any specific complaints prior to presentation, no complaints of shortness of breath, no cough, no congestion, no fever or chills. EKG revealed paced rhythm, with no acute elevations or depressions of the ST segment, no evidence of acute ischemia or infarction. She had generalized weakness of the bilateral lower extremities, but no focal neurologic deficits. CBC and BMP were within normal limits, renal profile electrolytes were normal, plasma lactic acid was 1.7, TSH was 1.660, within normal limits. Urinalysis showed moderate leukocytes, trace protein, 13 WBCs. Troponin was negative at 0.031. Chest x-ray was completed and showed patchy perihilar opacities more focal at the right upper to mid lung that could represent stability of multifocal pneumonia. Brain CT showed no acute intracranial findings, it showed diffuse age-related cerebral atrophy and diffuse confluent chronic small vessel ischemic changes. Possibility of normal pressure hydrocephalus. Punctate old lacunar in bilateral basal ganglia. Blood cultures were negative. Patient is afebrile, he is on supplemental oxygen, 3 L, and his pulse ox ranges from 90- 97%, hemodynamically stable. Cervical/lumbar spine CT revealed no evidence of vertebral body height loss or malalignment throughout the spine, multilevel degenerative disc disease, multilevel spinal canal stenosis dextroscoliosis and levoscoliosis of the lumbar spine. There was multifocal ground glass and reticular opacity throughout the right lung most suspicious for multifocal pneumonia. Mediastinal adenopathy was noted, likely reactive. There was infrarenal abdominal aortic aneurysm measuring up to 3.7 cm. And small pleural effusions right greater than left. Carotid Doppler ultrasound showed no hemodynamically significant stenosis, and showed deep venous thrombosis involving the left internal jugular vein. He is on a combination of Zithromax and Rocephin, and were asked to see the patient in evaluation for possibility of pneumonia The patient is seen today 03/22/2019 in follow-up on the regular medical floor. He is currently resting quite comfortably in bed. Awake and alert in no acute distress. States he is breathing easier today as compared to yesterday. Still with a loose nonproductive cough. No chills or night sweats. Maintaining O2 saturations in the 90s on 2 L/m per nasal cannula. Currently afebrile. Hemodynamically stable. Blood culture reveals no growth at 72 hours. White count 9.9. Hemoglobin 14.4. He remains on DuoNeb inhalations, any diuretics in the form of ceftriaxone and azithromycin. Objective - Vital Signs Vital signs: Vital Signs Temp 97.9 F 03/22/19 07:18 Pulse 60 03/22/19 11:42 Resp 16 03/22/19 07:18 BP 150/73 03/22/19 07:18 Pulse Ox 92 L 03/22/19 07:18 Intake & Output 03/21/19 03/22/19 03/22/19 18:59 06:59 18:59 Intake Total 650 Balance 650 Weight 63.503 kg Intake: Oral 650 Other: Voiding Method Bedside Commode Bedside Commode Incontinent Incontinent # Voids 2 2 # Bowel Movements 0 - Exam GENERAL EXAM: Alert, comfortable in no apparent distress. 2 L. HEAD: Normocephalic. EYES: Normal reaction of pupils, equal size. NOSE: Clear with pink turbinates. THROAT: No erythema or exudates. NECK: No masses, no JVD. CHEST: No chest wall deformity. LUNGS: Equal air entry with a bilateral scattered rhonchi. CVS: S1 and S2 normal with no audible murmur, regular rhythm. ABDOMEN: No hepatosplenomegaly, normal bowel sounds, no guarding or rigidity. SPINE: No scoliosis or deformity SKIN: No rashes CENTRAL NERVOUS SYSTEM: No focal deficits, tone is normal in all 4 extremities. EXTREMITIES: There is no peripheral edema. No clubbing, no cyanosis. Peripheral pulses are intact. - Labs CBC & Chem 7: 03/22/19 08:31 03/18/19 22:21 Labs: Abnormal Lab Results - Last 24 Hours (Table) 03/22/19 Range/Units 08:31 Plt Count 115 L (150-450) k/uL Neutrophils # 8.4 H (1.3-7.7) k/uL Lymphocytes # 0.6 L (1.0-4.8) k/uL Microbiology - Last 24 Hours (Table) 03/19/19 09:08 Blood Culture - Preliminary Blood No Growth after 72 hours 03/19/19 08:08 Blood Culture - Preliminary Blood No Growth after 72 hours Assessment and Plan Assessment: Assessment: #1. Acute right upper lung pneumonia community-acquired #2. Weakness, lethargy, inability to ambulate, likely related to the above. Brain CT showed no acute intracranial findings. Improved. #3. History of coronary artery disease, status post bypass grafting #4. History of aortic valve stenosis, status post aortic valve replacement in 2018 #5. History of permanent pacemaker placement for high degree AV block #6. Previous history of myocardial infarction #7. Hyperlipidemia #8. Dementia #9. History of bilateral cataracts #10. Remote history of smoking #11. History of atrial fibrillation, and the patient is on chronic anticoagulation in the form of Eliquis #12. History of ischemic cardiomyopathy, with some severely impaired left ventricular systolic function, with an EF of 20-25% #13. 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 Rodriguez. He is currently stable from the pulmonary standpoint. We'll continue with the current treatment plan. Increase his activity as tolerated. He is more awake and alert today compared to yesterday. We'll continue to follow and make further recommendations based on his clinical status. I, the cosigning physician, performed a history & physical examination of the patient. Lungs sounds with bilateral scattered rhonchi more so on the right upper lobe. Maintaining good O2 saturations in the 90s on 2 L/m per nasal cannula. I discussed the assessment and plan of care with my nurse practitioner, Joi Crowe. I attest to the above note as dictated by her.
--- NOTE | 2019-03-22 15:20 | P.PN ---
Subjective Progress Note Date: 03/22/19 Patient was seen by Dr. Asher yesterday. Report reviewed. Patient has presented with weakness of the lower extremities on 03/18/2019, after he came from grocery store. Patient's daughter has noticed that he was dragging his right leg slightly. Patient has developed weakness of the legs bilaterally, right side more. Today he is also having some weakness of the upper body. Patient has history of dementia, therefore not able to provide appropriate history. Denies weakness of the upper extremities, although in examination there is definite weakness as mentioned below. 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 Patient played basketball, and was fully active. His right leg is slightly shorter, but no disability. He does not use any assistive device. Patient prior to this arrival, was fully ambulatory. No history of upper respiratory infection previously, although sometimes he would cough, has nasal drip, but no office or hospital visits for upper respiratory infection. Patient's blood test shows normal CBC, PT/PTT, Chem-7, LFTs, troponin, TSH. UA showed moderate leukocyte esterase and 13 WBCs. Patient cannot have MRI because of presence of pacemaker. Patient underwent CT of the cervical thoracic and lumbar spine, which revealed dextroscoliosis of the thoracic lumbar junction and levoscoliosis of the lumbar spine with multilevel degenerative disc disease and multilevel spinal canal stenosis, that would be better evaluated with MRI. Multifocal groundglass reticular opacity throughout the right lung, is most suspicious for multifocal pneumonia. Mediastinal adenopathy is poorly defined but likely reactive. Infrarenal abdominal aortic aneurysm measuring 3.7 cm, fusiform in nature. Small pleural effusion, right greater than left. Anasarca and haziness of abdominal may related to fluid overload. CT head showed no acute intracranial process. Diffuse age-related cerebral atrophy and diffuse confluent chronic small vessel ischemic changes. Normal pressure hydrocephalus could be considered. Punctate old lacunar and bilateral basal ganglia. I reviewed the computed tomography scan, and has some prominence of the ventricles, but does not appear very concerning for NPH. Patient denies any headache, neck pain, back pain or any pain elsewhere. Denies any numbness of arms or legs. Objective - Vital Signs Vital signs: Vital Signs Temp 97.9 F 03/22/19 07:18 Pulse 60 03/22/19 11:42 Resp 16 03/22/19 07:18 BP 150/73 03/22/19 07:18 Pulse Ox 92 L 03/22/19 07:18 Intake & Output 03/21/19 03/22/19 03/22/19 18:59 06:59 18:59 Intake Total 650 Balance 650 Weight 63.503 kg Intake: Oral 650 Other: Voiding Method Bedside Commode Bedside Commode Incontinent Incontinent # Voids 2 2 1 # Bowel Movements 0 - Exam On examination patient is an elderly male, who is in [id number] distress due to coughing, slightly short of breath. His speech is clear with no aphasia or dysarthria. Patient does have some mental confusion, some cognitive impairment. On cranial nerve examination pupils are round and reacting to light. Visual miller are full. Extraocular muscles are intact. Face is symmetric and tongue protrudes to the midline. On muscle strength testing(right/left) deltoid 4/4, biceps 4+/4-, triceps 5/5, job analyst 4+/4+. In the lower extremity hip flexion is 4/5 knee extension 5/5. Ankle dorsiflexion 5-/5, plantarflexion normal. Reflexes are symmetric, 1 at the biceps, 0 brachioradialis. 2+ at the knees, 0 ankles and plantars probable upgoing bilaterally. Patient has high arched feet. Patient appears to have ataxia for [id number] bilaterally. Patient cannot perform ighm-ay-gnjo testing, just sliding his leg up and down the bed, not on the stafford, as was requested. - Labs CBC & Chem 7: 03/22/19 08:31 03/18/19 22:21 Labs: Abnormal Lab Results - Last 24 Hours (Table) 03/22/19 Range/Units 08:31 Plt Count 115 L (150-450) k/uL Neutrophils # 8.4 H (1.3-7.7) k/uL Lymphocytes # 0.6 L (1.0-4.8) k/uL Microbiology - Last 24 Hours (Table) 03/19/19 09:08 Blood Culture - Preliminary Blood No Growth after 72 hours 03/19/19 08:08 Blood Culture - Preliminary Blood No Growth after 72 hours Assessment and Plan Assessment: * Altered mental status, probably due to metabolic encephalopathy from pneumonia. Also has pre-existing history of dementia * Gait ataxia, inability to stand/walk. Examination revealed asymmetric weakness and ataxia in the extremities. Exact cause is uncertain. Rule out myelopathy. Rule out neuropathic process. Doubt CVA, with lack of any cranial findings, and patient already on anticoagulation. * Left IJ thrombus, chronic, on anticoagulation with Apixaban 2.5 mg twice a day. * History of pacemaker placement * History of TAVR * History of polio right lower extremity, and the right leg shorter than the left, but but functionally stable per his daughter's report Plan: Patient has clinical evidence of ataxia. Computed tomography scan of head showed no acute process. Some prominence of the ventricles, but not typical for NPH. There is some cortical atrophy from dementia. CT of the thoracic cervical and lumbar spine did not reveal severe stenosis. We will check blood tests including B12, folate, RPR, thiamine, serum protein electrophoresis, immunofixation electrophoresis, quantitative immunoglobulins. We'll start thiamine 100 mg daily empirically. Need to keep a close watch on neurological examination and particularly reflexes to rule out Guillain-Cervantes. Will follow clinically. Discussed with patient's family in detail. Time with Patient: Greater than 30 (In reviewing records, examination and counseling.)
--- NOTE | 2019-03-22 15:50 | PN ---
PROGRESS NOTE DATE OF SERVICE: 03/22/2019 PRESENTING COMPLAINT: Tired. INTERVAL HISTORY: Patient presented with severe pneumonia, metabolic encephalopathy, still rather weak. Neurological workup was negative. The patient's 2 daughters and at the bedside. The patient did eat a small amount. Still rather very weak, not able to really sit up for any time. REVIEW OF SYSTEMS: Done for constitutional, cardiovascular, GI, pulmonary; relevant findings as above. CURRENT MEDICATIONS: Reviewed that include IV ceftriaxone, Zithromax, IV fluids. PHYSICAL EXAMINATION: VITAL SIGNS: Temperature 97.9, pulse 60, respirations 16, blood pressure 150/73, pulse ox 92 percent on 2 L. GENERAL APPEARANCE: Propped up in bed, awake but tired. EYES: Pupils are equal. Conjunctivae normal. NECK: JVD not raised. Mass not palpable. RESPIRATORY: Effort increased. LUNGS: Decreased breath sounds. CARDIOVASCULAR: Heart sounds regular. No edema. ABDOMEN: Soft, nontender. Liver and spleen not palpable. PSYCHIATRY: Patient is able to answer simple questions. INVESTIGATIONS: White count 9.9, hemoglobin 14.4, platelets 115. Blood cultures are negative. ASSESSMENT: 1. Pneumonia suspect gram-negative organism. 2. Acute metabolic encephalopathy from underlying pneumonia with clinical improvement. 3. Thoracolumbar spine degenerative joint disease. 4. Persistent atrial fibrillation with a pacemaker in place with chronically on Eliquis. 5. 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 6. Coronary artery disease with prior history of coronary artery bypass. 7. Gastroesophageal reflux disease. 8. Hyperlipidemia. 9. Complete heart block with a pacemaker. 10.Possible some right leg weakness from prior polio as a child. 11.Primary osteoarthritis. PLAN: Continue current medication and treatment plan including antibiotics. Care was discussed with the patient. PT is also being consulted. The patient may need inpatient rehab. MMODL / IJN: [id number] /
[2019-03-22] MEDS: THIAMINE 100 MG TAB PO SCH (16:25)
[2019-03-22] MEDS: ACETAMINOPHEN TAB 325 MG TAB PO PRN (20:27)
--- NOTE | 2019-03-22 20:46 | XR ---
EXAMINATION TYPE: XR chest 1V portable DATE OF EXAM: 03/22/2019 COMPARISON: 03/18/2019 HISTORY: Increasing shortness of breath TECHNIQUE: Single frontal view of the chest is obtained. FINDINGS: There is increasing confluence of the multifocal right-sided airspace disease and retrocar diac airspace disease. Left upper lung is spared. Dual lead left-sided cardiac device and postsurgica l change of the chest are again demonstrated with endovascular stent. Osseous demineralization is not ed. Cardia mediastinal silhouette is enlarged. No sizable pneumothorax or pleural effusion. IMPRESSION: Worsening multifocal airspace disease most compatible with multifocal pneumonia.
[2019-03-22 20:55] LABS: Anion Gap 6 mmol/L; Blood Urea Nitrogen 26 mg/dL (9-20); Carbon Dioxide 24 mmol/L (22-30); Chloride 108 mmol/L (98-107); Glucose 263 mg/dL (74-99); Potassium 4.3 mmol/L (3.5-5.1); Sodium 138 mmol/L (137-145)
[2019-03-22 22:15] LABS: HCT 44.8 % (39.0-53.0); HGB 14.1 gm/dL (13.0-17.5); Hypochromasia Slight; MCH 31.1 pg (25.0-35.0); MCHC 31.5 g/dL (31.0-37.0); MCV 98.6 fL (80.0-100.0); Mean Platelet Volume 8.4; Platelet Count 103 k/uL (150-450); RBC 4.54 m/uL (4.30-5.90); RDW 13.3 % (11.5-15.5); WBC 11.4 k/uL (3.8-10.6)
[2019-03-22] MEDS ORDERED: ACETAMINOPHEN IV (For NPO) 1,000 MG in EMPTY BAG 1 BAG IVPB ONE (22:50)
[2019-03-22 23:30] LABS: Folate, Serum 22.6 ng/mL
[2019-03-23] MEDS: APIXABAN 2.5 MG TABLET PO SCH ×3 (01:21→20:35)
[2019-03-23] MEDS: ATORVASTATIN 10 MG TAB PO SCH ×2 (01:22→20:35)
[2019-03-23] MEDS: METOPROLOL TARTRATE 12.5 MG TAB PO SCH ×3 (01:22→20:35)
[2019-03-23] MEDS: MEROPENEM 1 GM in SODIUM CHLORIDE 0.9% 100 ML IVPB SCH ×2 (04:39→17:43)
[2019-03-23] MEDS: SODIUM CHLORIDE 0.9% 1,000 ML IV SCH ×2 (04:47→17:55)
[2019-03-23] MEDS: IPRATROPIUM-ALBUTEROL 3 ML NEB INHALATION SCH ×3 (08:16→19:56)
[2019-03-23] MEDS: THIAMINE 100 MG TAB PO SCH (09:20)
[2019-03-23] MEDS: FAMOTIDINE 20 MG TAB PO SCH (09:20)
[2019-03-23] MEDS: LOSARTAN 25 MG TAB PO SCH (09:20)
[2019-03-23] MEDS: AZITHROMYCIN 500 MG TAB PO SCH (09:20)
[2019-03-23 09:21] LABS: Basophils % (A) 0 %; Eosinophils # (A) 0.1 k/uL (0-0.7); Eosinophils % (A) 1 %; HCT 44.2 % (39.0-53.0); HGB 13.9 gm/dL (13.0-17.5); Hypochromasia Slight; Lymphocytes # (A) 0.6 k/uL (1.0-4.8); Lymphocytes % (A) 6 %; MCH 31.1 pg (25.0-35.0); MCHC 31.4 g/dL (31.0-37.0); MCV 99.1 fL (80.0-100.0); Mean Platelet Volume 8.3; Monocytes # (A) 0.5 k/uL (0-1.0); Monocytes % (A) 5 %; Neutrophils # (A) 8.3 k/uL (1.3-7.7); Neutrophils % (A) 86 %; RBC 4.46 m/uL (4.30-5.90); RDW 13.3 % (11.5-15.5); WBC 9.7 k/uL (3.8-10.6)
[2019-03-23 10:19] LABS: Platelet Count 77 k/uL (150-450)
[2019-03-23 12:17] LABS: ABG Base Excess 1.7 mmol/L; ABG HCO3 25 mmol/L (21-25); ABG Oxygen Saturation 99.6 % (94-97); ABG PCO2 33 mmHg (35-45); ABG PH 7.49 (7.35-7.45); ABG PO2 244 mmHg (83-108); ABG TCO2 26 mmol/L (19-24)
--- NOTE | 2019-03-23 13:36 | CT ---
EXAMINATION TYPE: CT brain wo con DATE OF EXAM: 03/23/2019 HISTORY: Altered mental status CT DLP: 1056.4 mGycm. Automated Exposure Control for Dose Reduction was Utilized. TECHNIQUE: CT scan of the head is performed without contrast. COMPARISON: None. FINDINGS: There is no acute intracranial hemorrhage or midline shift identified. There is diffuse v entricular and sulcal prominence consistent with diffuse age-related cerebral atrophy. There is low- attenuation in the periventricular white matter consistent with chronic small vessel ischemic change. Remote lacunar injuries of the bilateral basal ganglia. Remote ischemic injury of the left cerebella r hemisphere. The globes are intact and the visualized sinuses are clear. IMPRESSION: No acute intracranial hemorrhage or midline shift. There is diffuse age-related cerebra l atrophy and chronic small vessel ischemic change noted.
--- NOTE | 2019-03-23 16:00 | P.PN ---
Subjective Progress Note Date: 03/23/19 Patient was seen for a follow-up. Patient apparently has been getting worse. Speech is more dysarthric. Patient underwent computed tomography scan of the head today, which was read as no acute change. On my review, I could clearly see an acute to subacute stroke involving the left cerebellum, which was not seen on the computed tomography scan of head from 03/21/2019, 2 days ago. I have it reviewed by the radiologist, who concurred about presence of an acute stroke. Patient's clinical ataxia noted yesterday also probably correlate with this acute stroke in the left cerebellar region. Today many family members are present. Including his , one daughter, and multiple grandchildren. I had a prolonged discussion with the family about the results of the computed tomography scan. Patient has presented with weakness of the lower extremities on 03/18/2019, after he came from grocery store. Patient's daughter has noticed that he was dragging his right leg slightly. Patient has developed weakness of the legs bilaterally, right side more. Today he is also having some weakness of the upper body. Patient has history of dementia, therefore not able to provide appropriate history. Denies weakness of the upper extremities, although in examination there is definite weakness as mentioned below. 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 Patient played basketball, and was fully active. His right leg is slightly shorter, but no disability. He does not use any assistive device. Patient prior to this arrival, was fully ambulatory. No history of upper respiratory infection previously, although sometimes he would cough, has nasal drip, but no office or hospital visits for upper respiratory infection. Patient's blood test shows normal CBC, PT/PTT, Chem-7, LFTs, troponin, TSH. UA showed moderate leukocyte esterase and 13 WBCs. Patient cannot have MRI because of presence of pacemaker. Patient underwent CT of the cervical thoracic and lumbar spine, which revealed dextroscoliosis of the thoracic lumbar junction and levoscoliosis of the lumbar spine with multilevel degenerative disc disease and multilevel spinal canal stenosis, that would be better evaluated with MRI. Multifocal groundglass reticular opacity throughout the right lung, is most suspicious for multifocal pneumonia. Mediastinal adenopathy is poorly defined but likely reactive. Infrarenal abdominal aortic aneurysm measuring 3.7 cm, fusiform in nature. Small pleural effusion, right greater than left. Anasarca and haziness of abdominal may related to fluid overload. CT head showed no acute intracranial process. Diffuse age-related cerebral atrophy and diffuse confluent chronic small vessel ischemic changes. Normal pressure hydrocephalus could be considered. Punctate old lacunar and bilateral basal ganglia. I reviewed the computed tomography scan, and has some prominence of the ventricles, but does not appear very concerning for NPH. Objective - Vital Signs Vital signs: Vital Signs Temp 98.1 F 03/23/19 14:28 Pulse 62 03/23/19 14:28 Resp 18 03/23/19 14:28 BP 129/72 03/23/19 14:28 Pulse Ox 99 03/23/19 14:28 Intake & Output 03/22/19 03/23/19 03/23/19 18:59 06:59 18:59 Other: Voiding Method Incontinent Incontinent Incontinent # Voids 1 0 1 # Bowel Movements 0 - Exam On examination patient is an elderly male, very pleasant, in no distress. He was sleeping, but did wake up, but speech is more dysarthric, incomprehensible, with frequent perseveration. Attention and concentration fund of knowledge is limited. Patient appears quadriparetic involving both upper and lower extremities. He is able to lift his arms up, and does not offer any resistance. 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 His legs have gotten much weaker bilaterally. Patient has bilateral Babinski. - Labs CBC & Chem 7: 03/23/19 07:25 03/22/19 20:33 Labs: Abnormal Lab Results - Last 24 Hours (Table) 03/22/19 03/22/19 03/22/19 Range/Units 16:05 20:33 20:33 WBC (3.8-10.6) k/uL Plt Count (150-450) k/uL Neutrophils # (1.3-7.7) k/uL Lymphocytes # (1.0-4.8) k/uL ABG pH (7.35-7.45) ABG pCO2 (35-45) mmHg ABG pO2 (83-108) mmHg ABG Total CO2 (19-24) mmol/L ABG O2 Saturation (94-97) % Chloride 108 H (98-107) mmol/L BUN 26 H (9-20) mg/dL Glucose 263 H (74-99) mg/dL Plasma Lactic Acid Mark 2.8 H* (0.7-2.0) mmol/L Vitamin B12 2391.0 H (200.0-944.0) pg/mL 03/22/19 03/23/19 03/23/19 Range/Units 21:00 07:25 12:13 WBC 11.4 H (3.8-10.6) k/uL Plt Count 103 L 77 L (150-450) k/uL Neutrophils # 8.3 H (1.3-7.7) k/uL Lymphocytes # 0.6 L (1.0-4.8) k/uL ABG pH 7.49 H (7.35-7.45) ABG pCO2 33 L (35-45) mmHg ABG pO2 244 H (83-108) mmHg ABG Total CO2 26 H (19-24) mmol/L ABG O2 Saturation 99.6 H (94-97) % Chloride (98-107) mmol/L BUN (9-20) mg/dL Glucose (74-99) mg/dL Plasma Lactic Acid Mark (0.7-2.0) mmol/L Vitamin B12 (200.0-944.0) pg/mL Microbiology - Last 24 Hours (Table) 03/19/19 09:08 Blood Culture - Preliminary Blood No Growth after 96 hours 03/19/19 08:08 Blood Culture - Preliminary Blood No Growth after 96 hours 03/23/19 07:20 Sputum Culture - Preliminary Sputum Assessment and Plan Assessment: * Acute left cerebellar stroke. Rule out vertebrobasilar stenosis producing progressive dysarthria and weakness. At present patient appears to be weak in all 4 extremities. * Altered mental status, probably due to metabolic encephalopathy from pneumonia. Also has pre-existing history of dementia * Gait ataxia, inability to stand/walk. Likely due to cerebellar CVA. Uncertain as to the cause, as patient is already on anticoagulation. * Left IJ thrombus, chronic, on anticoagulation with Apixaban 2.5 mg twice a day. * History of pacemaker placement * History of TAVR * History of polio right lower extremity, and the right leg shorter than the left, but but functionally stable per his daughter's report Plan: Patient has acute left cerebellar stroke. He is getting bilateral hemiparesis, therefore concerned about basilar artery thrombus. Suggested CTA of head and neck, but patient's daughter, who is the medical power of business attorney is very much concerned about CTA with contrast. I had a very prolonged discussion with the patient , their daughters and grandchildren. Informed them that his renal functions are fine, therefore should not be concerned, but his daughter still very concerned, does not feel comfortable having him go through the CTAs. Also discussed with primary physician. Suggest CTA of head and neck to rule out vertebral or basilar stenosis/thrombosis. 2-D echo. Start aspirin 300 mg rectally daily including now. Patient already on Apixaban, 2.5 mg twice a day. Apparently due to his age, cannot go up on the dose. If patient cannot take Apixaban, then would recommend either placing NG tube and giving medication, or starting anticoagulation with IV heparin or Lovenox. Patient's daughter also considering about transfer to a tertiary care center. Discussed with patient's primary physician Dr. Haro, who agreed for patient to be transferred, if the family wishes. Will follow clinically. Discussed with patient's family in detail. Time with Patient: Greater than 30 (Including counseling, coordinating care)
[2019-03-23] MEDS: ASPIRIN 300 MG SUPP RECTAL SCH (16:42)
--- NOTE | 2019-03-23 18:24 | CT ---
EXAMINATION TYPE: CODE STROKE: CTA head neck DATE OF EXAM: 03/23/2019 HISTORY: Code stroke. COMPARISON: Unenhanced CT brain from earlier the same day, CT brain 03/21/2019 and bilateral carotid a nd vertebral angiogram 11/27/2018 CT DLP: 445.5 mGycm. Automated Exposure Control for Dose Reduction was Utilized. TECHNIQUE: CTA scan of the neck is performed with IV Contrast, patient injected with 50cc mL of Isov ue 370, axial images are obtained, coronal and sagittal reformatted images are reviewed. Three-D monica nstructed images are created on an independent workstation and reviewed. FINDINGS: Carotid/Vascular Structures: The visualized portions of the ascending and descending thoracic aorta within normal limits. Normal t hree-vessel aortic arch. Calcification luminal narrowing near the origin of the left vertebral artery which does opacify distally. Nonhemodynamically significant plaquing is seen of the great vessels. T he right common carotid artery is patent. There is calcified plaquing of the carotid bulb. Approximat janina 50% luminal narrowing of the internal right carotid artery. The remaining evaluation of the right ICA demonstrates some minimal luminal narrowing secondary to calcified plaquing but is patent to its clinoid portion. The left common carotid artery is patent. There is less than 50% luminal narrowing secondary to calci fied atheromatous plaquing near the carotid bulb. The left ECA is patent. The left ICA is patent to i ts clinoid portion. The vertebral arteries are codominant and are opacified. No evidence of dissection. Focal calcified p laquing is identified of the distal left vertebral artery at the level of the C2 vertebral foramen. T his results in greater than 50% luminal narrowing. The basilar artery is opacified without evidence of luminal narrowing or aneurysmal dilatation. Anter ior-inferior cerebral arteries are identified at their origins bilaterally. There is difficult evalua tion of past the origins secondary to motion artifact of the posterior fossa. Supraclinoid portions of the internal carotid artery are patent. Middle cerebral arteries are patent bilaterally. Anterior cerebral arteries are well opacified. The anterior communicating artery is iden tified and is patent. The posterior cerebral arteries are patent bilaterally. There is no evidence of aneurysmal dilatation. There is no opacification of the right P-comm. Left P-comm is intact. Right pleural effusion with multifocal airspace disease is seen in the right upper lung. Extensive mu ltilevel degenerative changes of the cervical spine. Sternotomy wires and dual-lead cardiac conductio n device are partially visualized. IMPRESSION: 1. No high-grade luminal narrowing of the bilateral carotid system. Approximately 50% luminal narrowi ng of the proximal portion of the right internal carotid artery secondary to calcified atheromatous p laquing. 2. Focal high-grade greater than 70% stenosis of the left V4 vertebral artery. 3. No large vessel intracranial arterial narrowing, aneurysm or dissection. 4. Right-sided pleural effusion with multifocal airspace disease in the partially visualized right sadie ng apex.
--- NOTE | 2019-03-23 19:11 | PN ---
PROGRESS NOTE DATE OF SERVICE: March 23, 2019 This is an 88-year-old male who was admitted with a diagnosis of right-sided pneumonia. Throughout the night, his respiratory status worsened. His oxygenation worsened. He was initially placed on a non-rebreather and then had BiPAP placed. In addition, his mental status has significantly declined. The family is in the room with him. I look at the x-ray at the bedside. The x-ray certainly much worse showing pneumonia in the right lung, especially in the right upper lobe and right lower lobe as well as in the left retrocardiac area. We ordered a CT scan of the brain. We will also ordered a stat blood gas. The patient is very lethargic and somnolent. Barely arouses. This was not the situation yesterday. In addition he has history of CAD, status post bypass grafting, aortic valve stenosis with previous aortic valve replacement 2017, pacemaker and stent insertion for high- degree AV block and a previous history of [place]. Other medical problems include hyperlipidemia, dementia, bilateral cataracts, remote history of tobacco use, atrial fibrillation, and ischemic cardiomyopathy. He had polio as a child. Apparently after we saw him today, and after the chest x-ray, blood gas and CT scan was either ordered or done, the patient's family made the patient a DNR. PHYSICAL EXAMINATION: VITAL SIGNS: Current vital signs are reviewed. Temperature 98.1, heart rate 64, respiratory rate 24, blood pressure 134/73, and saturations on the BiPAP with an FiO2 of 80% are right around 95-98 percent. GENERAL: He does appear very lethargic and somnolent. He does mumble a few words. BiPAP mask in place. This is a significant change since yesterday. HEENT examination is grossly unremarkable. BiPAP mask is noted. NECK: Supple. Full range of motion. No adenopathy or thyromegaly. Neck veins are flat. CARDIOVASCULAR examination reveals regular rhythm rate. Heart rate 64. Heart sounds are distant. LUNGS: Coarse rhonchi bilaterally. No wheezes. A few scattered crackles. Breath sounds are diminished throughout. ABDOMEN: Soft. Bowel sounds are heard. EXTREMITIES are intact. No cyanosis, clubbing, or significant edema. SKIN without rash. NEUROLOGIC examination is difficult to assess given his current mental status. Chest x-ray shows significant worsening. A brain scan is pending. LABS: Reviewed. White count 9.7, hemoglobin 17.9, hematocrit 44.2, platelet count 77,000. Blood gas shows a PO2 of 244, pCO2 33, and a pH of 0.49. At this point, the FiO2 was dropped from 80-50 percent. The rest of the labs are reviewed. Microbiologic studies are negative. Medications are reviewed. ASSESSMENT: 1. Bilateral multifocal pneumonia, with a worsened respiratory status and worsening hypoxemia. 2. Acute hypoxemic respiratory failure secondary to pneumonia, mental status changes, which may relate to underlying sepsis/septic encephalopathy or primary brain process. Prior CT of the brain was negative for acute abnormalities. 3. History of coronary artery disease with previous bypass grafting. 4. History of aortic valve replacement for aortic stenosis, 2018. 5. History of permanent pacemaker placement for high-degree AV block. 6. Previous history of myocardial infarction. 7. Hyperlipidemia. 8. Dementia. 9. History of bilateral cataracts. 10.Remote history of smoking. 11.History of atrial fibrillation. 12.Ischemic cardiomyopathy with an ejection fraction of 20% to 25%. 13.History of polio. PLAN: Overall, the patient is doing very poorly. I do not disagree with the family making him a DNR. He is poorly responsive. His chest x-ray has gotten worse. He is on good antibiotics. Additional recommendations and suggestions are forthcoming. Prognosis is very guarded. MMODL / IJN: [id number] /
--- NOTE | 2019-03-23 22:26 | PN ---
PROGRESS NOTE DATE OF SERVICE: 03/23/2019. PRESENTING COMPLAINT: Lethargic. INTERVAL HISTORY: The patient presented with severe pneumonia, metabolic encephalopathy, continued to spike fevers yesterday evening. I switched the patient over to meropenem. Decreased oral intake. Today multiple family members are present. The patient continues to be lethargic. Did take some of his medications with applesauce. CT scan of the brain was ordered earlier today. Initially reported negative. Dr. Luis un did review with the radiologist, it was determined that the patient had a left cerebellar stroke. Dr. Luis did convey this to me after I had already seen the patient and talked with the . family earlier in the day. The patient has been rather delirious and encephalopathic. REVIEW OF SYSTEMS: Could not be done as patient is rather lethargic. CURRENT MEDICATIONS: Current medications include IV meropenem. PHYSICAL EXAMINATION: On examination, afebrile, pulse 62, respirations 22, blood pressure 120/72, pulse ox 99 percent on 8L of oxygen. GENERAL APPEARANCE: Propped up, lethargic but arousable. EYES: Pupils equal. Conjunctivae normal. HEENT: External nose and ears normal. Oral cavity a bit dry. NECK: JVD unable to assess. Mass not palpable. Respiratory effort increased. LUNGS: Crackles in the bases. CARDIOVASCULAR: 1st and 2nd sounds normal. No edema. ABDOMEN: Soft, nontender. Liver and spleen not palpable. PSYCHIATRY: The patient is delirious but arousable. INVESTIGATIONS: White count 9.7, hemoglobin 13.9. Blood gas showed a pH of 7.49, PO2 of 244. CT scan of the brain, the report of which was addended later on, showed low attenuation of the left cerebral hemisphere. CT angiography done later in the evening showed high-grade stenosis 30% of the left V4 vertebral artery. ASSESSMENT: 1. Multilobar pneumonia, suspect gram-negative organism from aspiration, slow to respond, causing acute hypoxic respiratory failure. 2. Acute metabolic encephalopathy and delirium, multifactorial. 3. 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 4. Thoracolumbar spine degenerative joint disease. 5. Persistent atrial fibrillation with pacemaker in place chronically on Eliquis. 6. 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 7. Coronary artery prior history of coronary bypass. 8. Gastroesophageal reflux disease. 9. Hyperlipidemia. 10.Complete heart block with pacemaker. 11.Primary osteoarthritis. PLAN: I spoke to the patient's family prior to the modified result of the CT scan and CT angiography. The patient has been tolerating his pills with applesauce. We will continue with that. Maintain aspiration precautions. Supplemental care is to continue. Later on discussed the results with neurology of the CT scan, with Dr. Luis. No further intervention according to him, following the results after I talked to the nurse. Prognosis not good. More than 50 minutes was spent on this patient with over 25 to 30 minutes of discussion. MMODL / IJN: [id number] /
[2019-03-24] MEDS: MEROPENEM 1 GM in SODIUM CHLORIDE 0.9% 100 ML IVPB SCH ×2 (04:23→15:18)
[2019-03-24] MEDS: SODIUM CHLORIDE 0.9% 1,000 ML IV SCH ×2 (04:23→21:30)
[2019-03-24] MEDS: ASPIRIN 300 MG SUPP RECTAL SCH (07:49)
[2019-03-24] MEDS: METOPROLOL TARTRATE 12.5 MG TAB PO SCH ×2 (07:49→21:06)
[2019-03-24] MEDS: APIXABAN 2.5 MG TABLET PO SCH ×2 (07:49→21:31)
[2019-03-24] MEDS: FAMOTIDINE 20 MG TAB PO SCH (07:49)
[2019-03-24] MEDS: FINASTERIDE 5 MG TAB PO SCH (07:49)
[2019-03-24] MEDS: LOSARTAN 25 MG TAB PO SCH (07:50)
[2019-03-24] MEDS: THIAMINE 100 MG TAB PO SCH (07:50)
[2019-03-24] MEDS: IPRATROPIUM-ALBUTEROL 3 ML NEB INHALATION SCH ×4 (08:21→20:19)
[2019-03-24 08:29] LABS: Basophils % (A) 0 %; Eosinophils # (A) 0.1 k/uL (0-0.7); Eosinophils % (A) 1 %; HCT 43.7 % (39.0-53.0); HGB 13.8 gm/dL (13.0-17.5); Hypochromasia Slight; Lymphocytes # (A) 0.5 k/uL (1.0-4.8); Lymphocytes % (A) 6 %; MCH 31.1 pg (25.0-35.0); MCHC 31.5 g/dL (31.0-37.0); MCV 98.8 fL (80.0-100.0); Mean Platelet Volume 9.1; Monocytes # (A) 0.6 k/uL (0-1.0); Monocytes % (A) 6 %; Neutrophils # (A) 7.7 k/uL (1.3-7.7); Neutrophils % (A) 85 %; RBC 4.43 m/uL (4.30-5.90); RDW 13.6 % (11.5-15.5)
[2019-03-24 08:36] LABS: Platelet Count 44 k/uL (150-450)
[2019-03-24 08:56] LABS: Anion Gap 3 mmol/L; Blood Urea Nitrogen 24 mg/dL (9-20); Calcium 8.4 mg/dL (8.4-10.2); Carbon Dioxide 24 mmol/L (22-30); Chloride 115 mmol/L (98-107); Glucose 105 mg/dL (74-99); Potassium 4.4 mmol/L (3.5-5.1); Sodium 142 mmol/L (137-145)
--- NOTE | 2019-03-24 10:37 | P.PN ---
Subjective Progress Note Date: 03/24/19 Patient was seen for a follow-up. No family members were present at this time. Patient is laying comfortably in the bed. Patient continues to be severely dysarthric/dysphasic speech, and comprehensible most of the time, mumbling, not making any sense. The only thing I could understand was his name "Faizan", "I don't know". She could not name objects. Comprehension is limited. Patient continues to have weakness of all 4 extremities, left more than right. Drum Puller is about 4+ on the right, 4-on the left. Patient had a CTA of head and neck with contrast, which revealed no high-grade luminal narrowing of bilateral carotid system. Approximately 50% luminal narrowing of the proximal portion of the right ICA secondary to calcified atheromatous plaquing. Focal high-grade greater than 70% stenosis of the left V4 vertebral artery. No large vessel intracranial arterial narrowing, aneurysms or dissection. Right-sided pleural effusion with multifocal airspace disease in the partially visualized right lung apex. Patient's stroke is likely due to left vertebral artery stenosis > 70%, probably producing artery to artery embolism. PREVIOUS HISTORY: Patient has presented with weakness of the lower extremities on 03/18/2019, after he came from grocery store. Patient's daughter has noticed that he was dragging his right leg slightly. Patient has developed weakness of the legs bilaterally, right side more. Today he is also having some weakness of the upper body. Patient has history of dementia, therefore not able to provide appropriate history. Denies weakness of the upper extremities, although in examination there is definite weakness as mentioned below. 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 Patient played basketball, and was fully active. His right leg is slightly shorter, but no disability. He does not use any assistive device. Patient prior to this arrival, was fully ambulatory. No history of upper respiratory infection previously, although sometimes he would cough, has nasal drip, but no office or hospital visits for upper respiratory infection. Patient's blood test shows normal CBC, PT/PTT, Chem-7, LFTs, troponin, TSH. UA showed moderate leukocyte esterase and 13 WBCs. Patient cannot have MRI because of presence of pacemaker. Patient underwent CT of the cervical thoracic and lumbar spine, which revealed dextroscoliosis of the thoracic lumbar junction and levoscoliosis of the lumbar spine with multilevel degenerative disc disease and multilevel spinal canal stenosis, that would be better evaluated with MRI. Multifocal groundglass reticular opacity throughout the right lung, is most suspicious for multifocal pneumonia. Mediastinal adenopathy is poorly defined but likely reactive. Infrarenal abdominal aortic aneurysm measuring 3.7 cm, fusiform in nature. Small pleural effusion, right greater than left. Anasarca and haziness of abdominal may related to fluid overload. CT head showed no acute intracranial process. Diffuse age-related cerebral atrophy and diffuse confluent chronic small vessel ischemic changes. Normal pressure hydrocephalus could be considered. Punctate old lacunar and bilateral basal ganglia. I reviewed the computed tomography scan, and has some prominence of the ventricles, but does not appear very concerning for NPH. Patient currently on Apixaban 2.5 mg twice a day, and also started on aspirin 300 mg rectally daily. Objective - Vital Signs Vital signs: Vital Signs Temp 98.8 F 03/24/19 07:00 Pulse 68 03/24/19 09:09 Resp 17 03/24/19 07:00 BP 146/77 03/24/19 07:00 Pulse Ox 94 L 03/24/19 08:59 Intake & Output 03/23/19 03/24/19 03/24/19 18:59 06:59 18:59 Other: Voiding Method Incontinent Incontinent # Voids 1 2 - Exam On examination patient is an elderly male, very pleasant, in no distress. He is awake, but speech is severely dysphasic/dysarthric, incomprehensible, with frequent perseveration. Attention and concentration fund of knowledge is limited. Patient appears quadriparetic involving both upper and lower extremities. He did not lift his arms up on command, although while he was coughing, I saw him bringing his left hand up to his mouth. However he does appear very weak in all 4 extremities. Patient has bilateral Babinski. - Labs CBC & Chem 7: 03/24/19 08:04 03/24/19 08:04 Labs: Abnormal Lab Results - Last 24 Hours (Table) 03/22/19 03/23/19 03/24/19 Range/Units 16:05 12:13 08:04 Plt Count 44 L (150-450) k/uL Lymphocytes # 0.5 L (1.0-4.8) k/uL ABG pH 7.49 H (7.35-7.45) ABG pCO2 33 L (35-45) mmHg ABG pO2 244 H (83-108) mmHg ABG Total CO2 26 H (19-24) mmol/L ABG O2 Saturation 99.6 H (94-97) % Chloride (98-107) mmol/L BUN (9-20) mg/dL Glucose (74-99) mg/dL IgA 388.0 H (60.0-350.0) mg/dL 03/24/19 Range/Units 08:04 Plt Count (150-450) k/uL Lymphocytes # (1.0-4.8) k/uL ABG pH (7.35-7.45) ABG pCO2 (35-45) mmHg ABG pO2 (83-108) mmHg ABG Total CO2 (19-24) mmol/L ABG O2 Saturation (94-97) % Chloride 115 H (98-107) mmol/L BUN 24 H (9-20) mg/dL Glucose 105 H (74-99) mg/dL IgA (60.0-350.0) mg/dL Microbiology - Last 24 Hours (Table) 03/23/19 07:20 Gram Stain - Preliminary Sputum Sputum Culture - Preliminary 03/19/19 09:08 Blood Culture - Preliminary Blood No Growth after 96 hours 03/19/19 08:08 Blood Culture - Preliminary Blood No Growth after 96 hours Assessment and Plan Assessment: * Acute left cerebellar stroke. CTA of head and neck showed focal high-grade > 70% stenosis of the left V4 vertebral artery. * Altered mental status, probably multifactorial. CVA is the most likely cause, with added effect of metabolic encephalopathy from pneumonia, with pre- existing history of dementia * Gait ataxia, inability to stand/walk. Likely due to cerebellar CVA. * Left IJ thrombus, chronic, on anticoagulation with Apixaban 2.5 mg twice a day. * History of pacemaker placement * History of TAVR * History of polio right lower extremity, and the right leg shorter than the left, but but functionally stable per his daughter's report Plan: Continue Apixaban 2.5 mg twice a day, with no skipping of the doses. Continue aspirin 300 mg rectally daily. Await 2-D echo. Patient does have significant stenosis of the left vertebral artery, but patient probably not a candidate for any mechanical intervention at this time, due to age factor, other comorbidities, and high risk procedure due to the location of the stenosis. Need to optimize medical treatment. Patient already on Apixaban, 2.5 mg twice a day. Apparently due to his age, cannot go up on the dose. If patient cannot take Apixaban, then would recommend either placing NG tube and giving medication, or starting anticoagulation with IV heparin or Lovenox. Start PT, OT, speech therapy.
--- NOTE | 2019-03-24 12:07 | ECHOF ---
Referral Reason:CVA MEASUREMENTS -------- HEIGHT: 180.3 cm WEIGHT: 63.5 kg BP: 141/77 IVSd: 1.6 cm (0.6 - 1.1) LVIDd: 3.1 cm (3.9 - 5.3) LVPWd: 1.9 cm (0.6 - 1.1) IVSs: 1.9 cm LVIDs: 2.8 cm LVPWs: 2.0 cm LAESV Index (A-L): 33.19 ml/m Ao Diam: 2.4 cm (2.0 - 3.7) AV Cusp: 1.6 cm (1.5 - 2.6) LA Diam: 4.7 cm (2.7 - 3.8) MV EXCURSION: 18.048 mm (> 18.000) MV EF SLOPE: 112 mm/s (70 - 150) EPSS: 0.5 cm MV E Jimmie: 1.03 m/s MV DecT: 178 ms MV A Jimmie: 0.67 m/s MV E/A Ratio: 1.54 AV maxP.88 mmHg AV meanP.51 mmHg RAP: 20.00 mmHg RVSP: 65.27 mmHg FINDINGS -------- Paced rhythm. This was a technically adequate study. The left ventricular size is normal. There is severe concentric left ventricular hypertrophy. Ove rall left ventricular systolic function is moderate-severely impaired with, an EF between 30 - 35 %. There is paradoxical/dysynergic septal motion consistent with post-operative status. Basal latera l LV wall motion is hypokinetic. Basal inferoseptal LV wall motion is hypokinetic. Mid lateral LV wall motion is hypokinetic. Mid inferoseptal LV wall motion is hypokinetic. The right ventricle is normal in size. LA is midly dilated 29-33ml/m2. The right atrial size is normal. Contrast study was performed with 1 iv injection of 8 ccs of agitated normal saline at rest. Patent foramen ovale present with right to left shunt. Aneurysmal Interatrial septum. Aortic valve is trileaflet and is mildly thickened. Peak/mean gradient across the Aortic Valve is 2 5.88mmHg / 13.51mmHg. Abnormally functioning porcine bioprosthetic aortic valve. The mitral valve leaflets are mildly thickened. Mild mitral regurgitation is present. Severe tricuspid regurgitation present. There is moderate pulmonary hypertension. The right ventr icular systolic pressure, as measured by Doppler, is 65.27mmHg. There is no pulmonic regurgitation present. The aortic root size is normal. The inferior vena cava is dilated with no significant inspiratory collapse which is consistent estima joseph right atrial pressure of >20 mmHg. There is no pericardial effusion. CONCLUSIONS -------- 1. Paced rhythm. 2. This was a technically adequate study. 3. The left ventricular size is normal. 4. There is severe concentric left ventricular hypertrophy. 5. There is paradoxical/dysynergic septal motion consistent with post-operative status. 6. The right ventricle is normal in size. 7. LA is midly dilated 29-33ml/m2. 8. The right atrial size is normal. 9. Contrast study was performed with 1 iv injection of 8 ccs of agitated normal saline at rest. 10. Patent foramen ovale present with right to left shunt. 11. Aneurysmal Interatrial septum. 12. Aortic valve is trileaflet and is mildly thickened. 13. Peak/mean gradient across the Aortic Valve is 25.88mmHg / 13.51mmHg. 14. Abnormally functioning porcine bioprosthetic aortic valve. 15. The mitral valve leaflets are mildly thickened. 16. Mild mitral regurgitation is present. 17. Severe tricuspid regurgitation present. 18. There is moderate pulmonary hypertension. 19. The right ventricular systolic pressure, as measured by Doppler, is 65.27mmHg. 20. There is no pulmonic regurgitation present. 21. The aortic root size is normal. 22. The inferior vena cava is dilated with no significant inspiratory collapse which is consistent es timated right atrial pressure of >20 mmHg. 23. There is no pericardial effusion. TIRE ROOM SUPERVISOR: Cinthia Dodson RDCS
--- NOTE | 2019-03-24 12:54 | XR ---
EXAMINATION TYPE: XR chest 1V DATE OF EXAM: 03/24/2019 COMPARISON: 03/22/2019 HISTORY: Pneumonia follow-up TECHNIQUE: Single frontal view of the chest is obtained. FINDINGS: Bilateral areas of consolidation with diffuse airspace disease in the right are stable. Po stsurgical changes and cardiac device noted. Diffuse osteopenia with arthropathy of the shoulders. No pneumothorax. IMPRESSION: Diffuse infiltrates are noted correlate for pneumonia. Pulmonary edema less likely consi deration.
--- NOTE | 2019-03-24 15:45 | P.PN ---
Subjective Progress Note Date: 03/24/19 Principal diagnosis: Altered mental status, inability to ambulate, multifocal pneumonia On 03/24/2019 patient seen in follow-up on medical surgical floor. he is quite lethargic, draws from painful stimuli, he is able to answer in 1 or 2 word responses. Then he becomes quite lethargic again. Currently on 6 L of oxygen his pulse ox is 94%, patient has been afebrile, blood pressures 140s over 70s. Yesterday patient was placed on the BiPAP support, and blood gas was obtained in view of patient's continued lethargy and it showed pO2 of 244, pCO2 of 33, and pH of 7.49, this was done and FiO2 of 80%, FiO2 was decreased down to 50%, and subsequently BiPAP support was removed and patient was placed on nasal cannula. Brain CTA was repeated which revealed no high-grade luminal narrowing of bilateral carotid system, approximately 50% luminal narrowing of the proximal portion of the right ICA secondary to calcified atheromatous plaquing and focal high-grade greater than 70% stenosis of the left C4 vertebral artery. No large vessel intracranial arterial narrowing, aneurysms or dissection, there is a right-sided pleural effusion with multifocal airspace disease at the partially visualized the right lung apex. Neurology is following, and diagnosed the patient with acute left cerebellar stroke due to high-grade stenosis of the left C4 vertebral artery. Patient is on oral anticoagulation with Eliquis 2.5 mg twice daily, rectal aspirin 300 mg daily, 2-D echo was ordered and showed moderately severe impaired left ventricular systolic function with an EF between 30-35%, severe tricuspid regurgitation and moderate pulmonary hypertension with right is right-sided pressures of 65 mmHg, aortic valve was trileaflet and mildly thickened, and that was abnormally functioning porcine bioprosthetic aortic valve with peak/mean gradient across the aortic valve of 25.8 mmHg/13.5 mmHg. The chest x-ray was obtained today, and shows diffuse infiltrates bilaterally, and pulmonary edema and the consideration. Today's labs have been reviewed, with little, is 9.0, hemoglobin is 13.8, serum sodium is 142, potassium is 4.4, chloride is 115, BUN is 24 creatinine is 0.67. Blood culture showed no growth, sputum culture showed Sandy albicans, and gram-negative bacilli, patient is on a combination of meropenem, and Zithromax and Rocephin have been discontinued. Patient's granddaughters and his are at the bedside, they're expressing a lot of concern that the patient is not being placed in the chair and his therapy is not actively working with the patient. The physical therapy were and this morning, and try to set up the patient on the edge of the bed, however patient level of consciousness is impaired, patient is very lethargic, and somnolent, and we believe there is a CVA in evolution. he is nothing by mouth, head of the bed up 45-50, patient is able to open his eyes momentarily, but he is not moving his right arm very much, generalized weakness, and positive Babinski in bilateral lower extremities. Objective - Vital Signs Vital signs: Vital Signs Temp 98.8 F 03/24/19 07:00 Pulse 68 03/24/19 13:12 Resp 17 03/24/19 07:00 BP 146/77 03/24/19 07:00 Pulse Ox 94 L 03/24/19 08:59 Intake & Output 03/23/19 03/24/19 03/24/19 18:59 06:59 18:59 Intake Total 1300 Balance 1300 Intake: Oral 1300 Other: Voiding Method Incontinent Incontinent # Voids 1 2 3 - Exam GENERAL EXAM: Right lethargic, 88-year-old white male on 6 L per high flow nasal cannula, arouses briefly to painful stimuli, he is able to say 1 or 2 words, but his speech is very mumbled, dysarthric, comfortable in no apparent distress. HEAD: Normocephalic/atraumatic. EYES: Normal reaction of pupils, equal size. Conjunctiva pink, sclera white. NOSE: Clear with pink turbinates. THROAT: No erythema or exudates. NECK: No masses, no JVD, no thyroid enlargement, no adenopathy. CHEST: No chest wall deformity. Symmetrical expansion. LUNGS: Equal air entry with diffuse crackles, diminished breath sounds, patient has extremely weak cough, ineffective, related to depressed level of consciousness CVS: Regular rate and rhythm, normal S1 and S2, no gallops, no murmurs, no rubs ABDOMEN: Soft, nontender. No hepatosplenomegaly, normal bowel sounds, no guarding or rigidity. EXTREMITIES: No clubbing, no edema, no cyanosis, 2+ pulses and upper and lower extremities. MUSCULOSKELETAL: Muscle strength and tone normal. SPINE: No scoliosis or deformity SKIN: No rashes CENTRAL NERVOUS SYSTEM: Quite lethargic, but arousable to painful stimuli briefly, and dressed back to sleep, speech is very mumbled, dysarthric. Her generalized weakness, patient seems to have right-sided hemiplegia, and positive bilateral Babinski. - Labs CBC & Chem 7: 03/24/19 08:04 03/24/19 08:04 Labs: Abnormal Lab Results - Last 24 Hours (Table) 03/22/19 03/24/19 03/24/19 Range/Units 16:05 08:04 08:04 Plt Count 44 L (150-450) k/uL Lymphocytes # 0.5 L (1.0-4.8) k/uL Chloride 115 H (98-107) mmol/L BUN 24 H (9-20) mg/dL Glucose 105 H (74-99) mg/dL IgA 388.0 H (60.0-350.0) mg/dL Microbiology - Last 24 Hours (Table) 03/23/19 07:20 Gram Stain - Preliminary Sputum Sputum Culture - Preliminary Sandy albicans Gram Neg Bacilli 03/19/19 09:08 Blood Culture - Preliminary Blood No Growth after 120 hours 03/19/19 08:08 Blood Culture - Preliminary Blood No Growth after 120 hours Assessment and Plan Plan: Assessment: #1. Acute right upper lung pneumonia community-acquired, today's chest x-ray shows bilateral airspace disease worse on the right, related to bilateral pneumonia, with the consideration to fluid volume overload, pulmonary edema #2. Weakness, lethargy, inability to ambulate, multifactorial, related to acute CVA, and underlying pneumonia #3. Acute hypoxic respiratory failure related to pneumonia and there is a component of fluid volume overload, congestive heart failure #4. Acute exacerbation of chronic congestive heart failure with systolic dysfunction #5. History of aortic valve stenosis, with history of aortic valve replacement, echocardiogram showed mildly thickened trileaflet aortic valve, and abnormally functioning bioprosthetic aortic valve #6. Moderately severe pulmonary hypertension with right-sided pressures of 65 mmHg #7. History of coronary artery disease, status post bypass grafting #8. History of aortic valve stenosis, status post aortic valve replacement in 2018 #9. History of permanent pacemaker placement for high degree AV block #10. Previous history of myocardial infarction #11. Hyperlipidemia #12. Dementia #13. History of bilateral cataracts #14. Remote history of smoking #15. History of atrial fibrillation, and the patient is on chronic ant icoagulation in the form of Eliquis #16. History of ischemic cardiomyopathy, with some severely impaired left ventricular systolic function, with an EF of 20-25% #17. 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 Latham, patient was seen and evaluated by Dr. Latham, there is a component of fluid volume overload, in setting of impaired left ventricular systolic function. Keep the patient nothing by mouth. Neurology is following, will await further recommendations in regards to acute CVA. halfway prognosis is unfortunately very guarded. I performed a history & physical examination of the patient and discussed their management with my nurse practitioner, Selena Villa. I reviewed the nurse practitioner's note and agree with the documented findings and plan of care. Lung sounds are positive for end expiratory wheezes. The findings and the impression was discussed with the patient. I attest to the documentation by the nurse practitioner. Time with Patient: Less than 30
--- NOTE | 2019-03-24 17:53 | XR ---
EXAMINATION TYPE: XR abdomen 1V DATE OF EXAM: 03/24/2019 COMPARISON: NONE HISTORY: NG tube placement TECHNIQUE: Single view FINDINGS: There is nasogastric tube with the tip over the gastric fundus. There is thoracolumbar dext roscoliosis. There is no sign of intestinal obstruction or pneumoperitoneum. Fecal pattern is normal. IMPRESSION: NG tube has tip over the gastric fundus.
[2019-03-24] MEDS: ACETAMINOPHEN TAB 325 MG TAB PO PRN (21:08)
[2019-03-24] MEDS: ATORVASTATIN 10 MG TAB PO SCH (21:08)
[2019-03-24 23:13] LABS: Glucose,Whole Blood 131 mg/dL (75-99)
--- NOTE | 2019-03-25 00:11 | PN ---
PROGRESS NOTE DATE OF SERVICE: 03/24/2019. PRESENT COMPLAINT: Lethargic. INTERVAL HISTORY: Patient presented with severe pneumonia, metabolic encephalopathy, left cerebellar stroke. The patient continues to be lethargic, not doing well. Seen by speech earlier today, was made n.p.o. It is felt that the patient is aspirating more. Earlier today I did order a NG tube. I did speak to Dr. Luis from Neurology. Prognosis is not good. Nothing further to be added at this point this point. Patient also being followed by Pulmonary. REVIEW OF SYSTEMS: Cannot be done as patient is rather lethargic but arousable. CURRENT MEDICATIONS: Reviewed that include DuoNeb, Eliquis, IV meropenem, Lopressor, saline. PHYSICAL EXAMINATION: VITAL SIGNS: Temperature 99.3, pulse 60, respirations 15, blood pressure 120/75, pulse ox 94 percent on 7 L high-flow oxygen. GENERAL APPEARANCE: Lying in bed, lethargic but arousable. EYES: Pupils equal. Conjunctivae normal. NECK: JVD unable to assess. Mass not palpable. Respiratory effort increased. LUNGS: Decreased breath sounds and crackles. CARDIOVASCULAR: 1st and 2nd sounds normal. No edema. ABDOMEN: Soft, nontender. Liver and spleen not palpable. PSYCHIATRY: The patient is just about following commands. NEUROLOGICAL: Pupils equal. No facial asymmetry. Weak in the limbs. INVESTIGATIONS: White count 9, hemoglobin 13.8, platelets 44,000, potassium 4.4, BUN 24, creatinine 0.67. Chest x-ray film personally reviewed by me shows significant infiltrate on the right side. Two-D echocardiogram shows EF of 30% to 35%, severe concentric left ventricular hypertrophy, multiple wall motion abnormalities, patent foramen ovale with wrmzq-bl-[id number] shunt, severe tricuspid and moderate pulmonary hypertension. ASSESSMENT: 1. Multilobar pneumonia, suspect gram-negative organism and also aspiration, slow to respond, causing acute severe hypoxic respiratory failure, not improving. 2. Acute metabolic encephalopathy and delirium, multifactorial, not improving. 3. Acute left cerebellar stroke. 4. Thoracolumbar spine degenerative joint disease. 5. Persistent atrial fibrillation with a pacemaker in place, chronically on Eliquis. 6. 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 7. Coronary artery disease, history of bypass. 8. Chronic congestive heart failure from systolic dysfunction, EF 30% to 35%. 9. Patent foramen ovale with lmzik-dy-jjuv shunt. 10.Gastroesophageal reflux disease. 11.Hyperlipidemia. 12.Complete heart block with pacemaker. 13.Primary osteoarthritis. PLAN: Did speak to Dr. Luis earlier today. Did have NG tube placed to continue with his medications supplemented. Care is to continue. Prognosis is not looking good. Did tell the nurse that I will have a family meeting this evening and meet with the patient's family. ADVANCED CARE PLANNING: I met with the patient's several family members including the 2 daughters including a daughter, Caity, who is the DPOA. Discussed the patient's multiple medical problems and multi-system being affected and prognosis is not good and options are limited. There is also question about feeding. They do not want a feeding tube. I did explain that with the NG tube, tube feeding could be done with again high risk of aspiration and he has been aspirating. After lengthy discussion the following things were decided: If the patient maintains status quo and there is no change, we may try some feeding through the NG tube for a limited time until family decides what further to do and depending on patient's clinical course. Next patient will definitely be made DNR. No PEG tube feeding. Will keep the patient comfortable. Total of 30 minutes was spent on this aspect of the care. This was conveyed to the nurse. TABATHA / MARGARITA: [id number] /
[2019-03-25] MEDS: APIXABAN 2.5 MG TABLET PO SCH (01:54)
[2019-03-25] MEDS: MEROPENEM 1 GM in SODIUM CHLORIDE 0.9% 100 ML IVPB SCH ×2 (03:42→16:53)
[2019-03-25 07:25] LABS: Glucose,Whole Blood 127 mg/dL (75-99)
[2019-03-25] MEDS: IPRATROPIUM-ALBUTEROL 3 ML NEB INHALATION SCH ×3 (07:58→19:36)
[2019-03-25] MEDS: METOPROLOL TARTRATE 12.5 MG TAB PO SCH ×2 (08:42→21:08)
[2019-03-25] MEDS: FINASTERIDE 5 MG TAB PO SCH (08:42)
[2019-03-25] MEDS: FAMOTIDINE 20 MG TAB PO SCH (08:43)
[2019-03-25] MEDS: THIAMINE 100 MG TAB PO SCH (08:43)
[2019-03-25] MEDS: LOSARTAN 25 MG TAB PO SCH (08:43)
[2019-03-25] MEDS: ACETAMINOPHEN TAB 325 MG TAB PO PRN (08:47)
[2019-03-25] MEDS ORDERED: APIXABAN 2.5 MG TABLET PO SCH (09:00)
[2019-03-25] MEDS: ASPIRIN 300 MG SUPP RECTAL SCH (09:13)
--- NOTE | 2019-03-25 11:42 | P.PN ---
Subjective Progress Note Date: 03/25/19 Patient was seen for a follow-up. Patient's and both daughters were present today. Family appears very stressed due to patient's condition. Patient has an NG tube placed. Some dried up blood noticed around his nostrils. Patient still encephalopathic, was sleeping, but on waking up, mumbles, with incomprehensible speech. Patient had a CTA of head and neck with contrast from 03/23/2019, which revealed no high-grade luminal narrowing of bilateral carotid system. Approximately 50% luminal narrowing of the proximal portion of the right ICA secondary to calcified atheromatous plaquing. Focal high-grade greater than 70% stenosis of the left V4 vertebral artery. No large vessel intracranial arterial narrowing, aneurysms or dissection. Right-sided pleural effusion with multifocal airspace disease in the partially visualized right lung apex. Patient's renal functions on 03/24/2019 are normal. Patient's stroke is likely due to left vertebral artery stenosis > 70%, probably producing artery to artery embolism. PREVIOUS HISTORY: Patient has presented with weakness of the lower extremities on 03/18/2019, after he came from grocery store. Patient's daughter has noticed that he was dragging his right leg slightly. Patient has developed weakness of the legs bilaterally, right side more. Today he is also having some weakness of the upper body. Patient has history of dementia, therefore not able to provide appropriate history. Denies weakness of the upper extremities, although in examination there is definite weakness as mentioned below. 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 Patient played basketball, and was fully active. His right leg is slightly shorter, but no disability. He does not use any assistive device. Patient prior to this arrival, was fully ambulatory. No history of upper respiratory infection previously, although sometimes he would cough, has nasal drip, but no office or hospital visits for upper respiratory infection. Patient's blood test shows normal CBC, PT/PTT, Chem-7, LFTs, troponin, TSH. UA showed moderate leukocyte esterase and 13 WBCs. Patient cannot have MRI because of presence of pacemaker. Patient underwent CT of the cervical thoracic and lumbar spine, which revealed dextroscoliosis of the thoracic lumbar junction and levoscoliosis of the lumbar spine with multilevel degenerative disc disease and multilevel spinal canal stenosis, that would be better evaluated with MRI. Multifocal groundglass reticular opacity throughout the right lung, is most suspicious for multifocal pneumonia. Mediastinal adenopathy is poorly defined but likely reactive. Infrarenal abdominal aortic aneurysm measuring 3.7 cm, fusiform in nature. Small pleural effusion, right greater than left. Anasarca and haziness of abdominal may related to fluid overload. CT head showed no acute intracranial process. Diffuse age-related cerebral atrophy and diffuse c onfluent chronic small vessel ischemic changes. Normal pressure hydrocephalus could be considered. Punctate old lacunar and bilateral basal ganglia. I reviewed the computed tomography scan, and has some prominence of the ventricles, but does not appear very concerning for NPH. Patient currently on Apixaban 2.5 mg twice a day, and also started on aspirin 300 mg rectally daily. Objective - Vital Signs Vital signs: Vital Signs Temp 99 F 03/25/19 07:00 Pulse 68 03/25/19 08:21 Resp 12 03/25/19 08:00 BP 152/78 03/25/19 07:00 Pulse Ox 92 L 03/25/19 07:58 Intake & Output 03/24/19 03/25/19 03/25/19 18:59 06:59 18:59 Intake Total 1300 Balance 1300 Intake: Oral 1300 Other: Voiding Method Diaper Diaper Incontinent Incontinent # Voids 3 1 - Exam On examination patient is an elderly male, , mumbles, but incomprehensible speech. Patient appears weak bilaterally. His hand straw baler was 4+ on the right, 4- on the left. Patient did not lift his legs off the bed. Patient has bilateral Babinski. - Labs CBC & Chem 7: 03/24/19 08:04 03/24/19 08:04 Labs: Abnormal Lab Results - Last 24 Hours (Table) 03/24/19 03/25/19 Range/Units 23:11 07:17 POC Glucose (mg/dL) 131 H 127 H (75-99) mg/dL Microbiology - Last 24 Hours (Table) 03/19/19 08:08 Blood Culture - Final Blood No Growth after 144 hours 03/23/19 07:20 Gram Stain - Final Sputum Sputum Culture - Final Sandy albicans Pseudomonas aeruginosa 03/19/19 09:08 Blood Culture - Preliminary Blood No Growth after 120 hours Assessment and Plan Assessment: * Acute left cerebellar stroke. CTA of head and neck showed focal high-grade > 70% stenosis of the left V4 vertebral artery. * Altered mental status, probably multifactorial. CVA is the most likely cause, with added effect of metabolic encephalopathy from pneumonia, with pre- existing history of dementia * Gait ataxia, inability to stand/walk. Likely due to cerebellar CVA. Cerebellar stroke does not typically explain bilateral hemiparesis. * Left IJ thrombus, chronic, on anticoagulation with Apixaban 2.5 mg twice a day. * Aspiration pneumonia, due to dysphagia from CVA. Patient currently on meropenem. * History of pacemaker placement * History of TAVR * History of polio right lower extremity, and the right leg shorter than the left, but but functionally stable per his daughter's report Plan: Continue Apixaban 2.5 mg twice a day. Apparently Apixaban has been held this morning due to nosebleed from possible NGT placement. Resume Apixaban, when medically cleared. Continue aspirin 300 mg rectally daily. 2-D echo showed severe concentric LVH, left atrium is mildly dilated. PFO noted with [id number]-du-pixx shunt on agitated normal saline injection. 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 Patient has been seen by cardiology. Recommended continued treatment Patient does have significant stenosis of the left vertebral artery, but patient probably not a candidate for any mechanical intervention at this time, due to age factor, other comorbidities, and high risk procedure due to the location of the stenosis. Need to optimize medical treatment. Start PT, OT, speech therapy. Discussed with patient's family in detail. Discussed about repeating computed tomography scan of the head to evaluate for any evolving stroke, as the left cerebellar stroke does not explain his diffuse weakness. Patient's family wants to hold off on any testing at this time.
[2019-03-25 12:04] LABS: Glucose,Whole Blood 124 mg/dL (75-99)
--- NOTE | 2019-03-25 14:47 | P.CRDCN ---
History of Present Illness History of present illness: This is a pleasant 88-year-old male past medical history significant for coronary artery disease status post bypass grafting in 1995 with a SHEN to LAD, SVG to PDA and SVG to OM, valvular heart disease status post TAVR 2017, hypertension, dyslipidemia, dementia, sick sinus syndrome s/p permanent pacemaker implantation [facility] 2016, peripheral vascular disease with stenosis of the right carotid artery and known PFO. He follows in the office with Dr. Collazo. He presented to the hospital with symptoms of weakness and has been diagnosed with an acute left cerebellar stroke. An echocardiogram was ordered and revealed impaired LV systolic function with EF 30-35% basal lateral, basal inferoseptal, mid-lateral and mid inferoseptal hypokinesia, patent foramen ovale, mildly thickened aortic valve with mean gradient of 13 mmHg and abnormally functioning bioprosthetic valve, mild MR, severe TR, moderate pulmonary hypertension with RVSP 65 mmHg. We have been asked to see him in consultation regarding the PFO findings. This is not a new finding. The patient is seen and examined sitting up in bed with family at the bedside. He is dysarthric and non-verbal. Information is obtained from the daughter. She states as far as she knows there have been no cardiac complaints. He has not been having any chest discomfort, shortness of breath, dizziness or palpitations. There was some concern about some labored breathing yesterday and he was given a dose of IV lasix. He is currently in sinus mechanism. EKG reveals ventricular paced rhythm. The family is currently considering comfort care. Eliquis has been discontinued secondary to bleeding from the nose. Chest x-ray obtained y esterday reveals diffuse infiltrates suggestive of pneumonia. Laboratory data reviewed, WBC 9, hemoglobin 13.8, platelets 44, sodium 142, potassium 4.2, creatinine 0.67, lactic acid on March 22 was 2. 8 repeat 1.1, and T proBNP is 7270 on March 21. Home cardiac medications include Eliquis 2.5 mg twice a day, losartan 25 mg daily, Lopressor 12.5 mg twice a day and simvastatin 20 mg daily. He is currently being treated for pneumonia. Most recent catheterization in July 2017 revealed progression of disease with 45% lesion involving the body of the SVG to PDA, SHEN to LAD is patent, SVG to OM is patent, [place] LAD 80% stenosis and proximal calcification that is unchanged, circumflex is free of significant disease and RCA is totally occluded. Most recent echocardiogram obtained February 2018 reveals impaired LV systolic function with ejection fraction 40%, inferior wall akinesia, status post TABR, aortic valve appears to be stable with a mean gradient of 16 without significant regurgitation. He underwent a HE August 2017 revealing a small PFO with [id number] shunting. Unable to obtain accurate review of systems secondary to mental status. Blood pressure 149/81 heart rate 68 afebrile maintaining oxygen saturation on nasal cannula. GENERAL: This is a 88-year-old male in no apparent distress at the time of my examination. Barely arousable. Appears comfortable. Mumbles incoherently. HEENT: Head is atraumatic, normocephalic. Mucous membranes of the mouth are moist. Neck is supple. There is no jugular venous distention. No carotid bruit is heard. NG tube in place with dry blood on bilateral nares. LUNGS: No chest wall tenderness is noted on palpation or with deep breathing. Diminished bilaterally with faint bibasilar rales and scattered rhonchi. No wheezes. HEART: Regular rate and rhythm with systolic ejection murmur heard at all listening points, no rubs or gallops. S1 and S2 heard. ABDOMEN: Soft, nontender. Bowel sounds are heard. No organomegaly noted. EXTREMITIES: No evidence of peripheral edema and no calf tenderness noted. VASCULAR: Radial and dorsalis pedis pulses palpated, no evidence of clubbing. NEUROLOGIC: Patient is lethargic. ASSESSMENT Acute left cerebellar stroke Pneumonia, bilateral Chronic systolic heart failure Patent foramen ovale Ischemic cardiomyopathy Paroxysmal atrial fibrillation Valvular heart disease status post TAVR with abnormally functioning prosthetic valve and recent echo Pulmonary hypertension, RVSP 65 History of sick sinus syndrome status post permanent pacemaker implantation Dyslipidemia Peripheral vascular disease with evidence of stenosis of the right carotid artery heart study and selective carotid angiography revealed moderate noncritical disease History of coronary artery disease status post bypass grafting PLAN There is no indication for closure of PFO at this time, nor would the patient be a candidate at this time. This was discussed with the family and they are agreeable. Family is concerned regarding bleeding from his nose which appears to be from traumatic NG tube placement. Eliquis has been held by primary care team. Prognosis remains guarded. Thank you kindly for this consultation. Nurse Practitioner note has been reviewed, I agree with a documented findings and plan of care. Patient was seen and examined. Past Medical History Past Medical History: Atrial Fibrillation, Coronary Artery Disease (CAD), Chest Pain / Angina, Dementia, GERD/Reflux, Hyperlipidemia, Myocardial Infarction ([place]), Pneumonia, Vascular Disorder Additional Past Medical History / Comment(s): Ischemic cardiomyopathy, PFO, aortic valve disease with surgery, paroxysmal afib, CHB with pacer, caratid artery disease, R internal jugular thrombosis, 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 Last Myocardial Infarction Date:: 1995 History of Any Multi-Drug Resistant Organisms: None Reported Past Surgical History: Adenoidectomy, Back Surgery, Coronary Bypass/CABG, Heart Catheterization, Hernia Repair, Pacemaker, Tonsillectomy Additional Past Surgical History / Comment(s): 1995 CABG-2 vessel, HE, 11/2017 TAVR at [facility], arch study, lumbar laminectomy, bilateral carpal tunnel releases, R foot surgery as an , bilateral cataract removal/lens implants, colonoscopy, L inguinal hernia repair. Past Anesthesia/Blood Transfusion Reactions: No Reported Reaction Type of Cardiac Device: Permanent Pacemaker Device Placement Date:: [facility] 07/31/17 Smoking Status: Former smoker - Past Family History Mother Family Medical History: Cancer Additional Family Medical History / Comment(s): Colon cancer. Father Family Medical History: Cancer Additional Family Medical History / Comment(s): Lung CA Medications and Allergies Home Medications Medication Instructions Recorded Confirmed Type Simvastatin [Zocor] 20 mg PO HS 01/26/16 03/18/19 History Losartan Potassium [Cozaar] 25 mg PO DAILY 07/26/17 03/18/19 History Ascorbic Acid [Vitamin C] 500 mg PO DAILY 04/04/18 03/18/19 History Cholecalciferol [Vitamin D3 (25 1,000 unit PO DAILY 04/04/18 03/18/19 History Mcg = 1000 Iu)] Cyanocobalamin [Vitamin B-12] 500 mcg PO DAILY 04/04/18 03/18/19 History Apixaban [Eliquis] 2.5 mg PO BID 03/18/19 03/18/19 History Famotidine [Pepcid] 40 mg PO PC-BRKFST 03/18/19 03/18/19 History Fish Oil/Dha/Epa [Fish Oil 1,200 1 cap PO DAILY 03/18/19 03/18/19 History mg Fish Oil] Metoprolol Tartrate [Lopressor] 12.5 mg PO BID 03/18/19 03/18/19 History Finasteride [Proscar] 5 mg PO DAILY 03/22/19 03/22/19 History Allergies Allergy/AdvReac Type Severity Reaction Status Date / Time No Known Allergies Allergy Verified 03/18/19 22:40 Physical Exam Vitals: Vital Signs Temp Pulse Pulse Resp BP Pulse Ox 03/25/19 08:21 68 03/25/19 07:58 68 92 L 03/25/19 07:00 99 F 60 12 152/78 03/25/19 01:38 98.2 F 60 18 124/74 94 L 03/24/19 21:15 98.8 F 68 20 166/85 97 03/24/19 20:36 68 03/24/19 20:19 72 94 L 03/24/19 16:00 60 03/24/19 15:00 99.3 F 60 15 144/75 94 L 03/24/19 13:12 68 03/24/19 12:57 64 Intake and Output 03/24/19 03/25/19 03/25/19 22:59 06:59 14:59 Other: Voiding Method Diaper Incontinent # Voids 1 1 Results 03/24/19 08:04 03/24/19 08:04 Current Medications Generic Name Dose Route Start Last Admin Trade Name Freq PRN Reason Stop Dose Admin Acetaminophen 650 mg 03/22/19 20:13 03/25/19 08:47 Tylenol Tab PO 650 mg Q6HR PRN Administration Fever and/ or Pain Albuterol/Ipratropium 3 ml 03/21/19 15:07 Duoneb 0.5 Mg-3 Mg/3 Ml Soln INHALATION RT-Q2H PRN Shortness Of Breath Or Wheezing Albuterol/Ipratropium 3 ml 03/22/19 13:00 03/25/19 07:58 Duoneb 0.5 Mg-3 Mg/3 Ml Soln INHALATION 3 ml RT-TID VESTA Administration Apixaban 2.5 mg 03/25/19 09:00 03/25/19 08:44 Eliquis PO 2.5 mg BID VESTA Administration Aspirin 300 mg 03/23/19 15:45 03/25/19 09:13 Aspirin RECTAL 300 mg DAILY VESTA Administration Atorvastatin Calcium 10 mg 03/19/19 21:00 03/24/19 21:08 Lipitor PO 10 mg HS VESTA Administration Famotidine 40 mg 03/19/19 08:30 03/25/19 08:43 Pepcid PO 40 mg PC-BRKFST VESTA Administration Finasteride 5 mg 03/24/19 09:00 03/25/19 08:42 Proscar PO 5 mg DAILY VESTA Administration Sodium Chloride 1,000 mls @ 75 mls/hr 03/19/19 06:45 03/24/19 21:30 Saline 0.9% IV Not Given .[id number] VESTA Meropenem 1 gm/ Sodium 100 mls @ 200 mls/hr 03/23/19 04:00 03/25/19 03:42 Chloride IVPB 200 mls/hr Q12H VESTA Administration Protocol Losartan Potassium 25 mg 03/19/19 09:00 03/25/19 08:43 Cozaar PO 25 mg DAILY VESTA Administration Metoprolol Tartrate 12.5 mg 03/19/19 09:00 03/25/19 08:42 Lopressor PO 12.5 mg BID VESTA Administration Thiamine HCl 100 mg 03/22/19 15:30 03/25/19 08:43 Vitamin B-1 PO 100 mg DAILY VESTA Administration Intake and Output 03/24/19 03/25/19 03/25/19 22:59 06:59 14:59 Other: Voiding Method Diaper Incontinent # Voids 1 1 03/24/19 08:04 03/24/19 08:04
[2019-03-25 16:55] LABS: Glucose,Whole Blood 143 mg/dL (75-99)
[2019-03-25] MEDS: SODIUM CHLORIDE 0.9% 1,000 ML IV SCH ×2 (16:55→23:03)
[2019-03-25] MEDS: ATORVASTATIN 10 MG TAB PO SCH (21:08)
[2019-03-25 21:19] LABS: Glucose,Whole Blood 126 mg/dL (75-99)
[2019-03-26] MEDS: MEROPENEM 1 GM in SODIUM CHLORIDE 0.9% 100 ML IVPB SCH ×2 (04:20→16:51)
--- NOTE | 2019-03-26 06:46 | PN ---
PROGRESS NOTE DATE OF SERVICE: 03/25/2019 PRESENTING COMPLAINT: Tired. INTERVAL HISTORY: Patient presented with severe pneumonia, metabolic encephalopathy, left cerebellar stroke. Remains lethargic, though may answer question occasionally. Still requiring about 6 L of oxygen. Overnight has been having quite a bit of epistaxis with nasal cannula in place. Has an NG tube in place. Family members are present including 2 daughters and his . REVIEW OF SYSTEMS: Cannot be done as patient rather lethargic. CURRENT MEDICATIONS: Current medications are reviewed that include DuoNeb, IV meropenem, IV fluid 75 mL an hour. PHYSICAL EXAMINATION: On examination, temperature 99, pulse 60, respiration 12, blood pressure 152/78, pulse ox 92% on 6 L. GENERAL APPEARANCE: Lying in bed, lethargic, but arousable. EYES: Pupils equal. Conjunctivae pale. NECK: JVD unable to assess. Mass not palpable. RESPIRATORY: Effort increased. LUNGS: Decreased breath sounds. No crackles. CARDIOVASCULAR: Heart sounds irregular. Edema is present. ENT: Blood clots in both the nose and left nose was dripping with blood. ABDOMEN: Soft, nontender. Liver and spleen not palpable. PSYCHIATRY: Patient is lethargic, but arousable. NEUROLOGICAL: Not able to assess further because patient is barely following commands. INVESTIGATIONS: Accu-Cheks are noted. ASSESSMENT: 1. Multilobar pneumonia, suspect gram-negative organism and also aspiration, slow to respond, causing acute severe hypoxic respiratory failure, slow to respond. 2. Acute metabolic encephalopathy, delirium, multifactorial, slow to respond. 3. Acute left cerebellar stroke. 4. Thoracolumbar spine degenerative joint disease. 5. Persistent atrial fibrillation with a pacemaker in place, chronically on Eliquis. 6. 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 7. Coronary artery disease with history of coronary bypass. 8. Chronic congestive heart failure from systolic dysfunction, ejection fraction 30% to 35% .. 9. Patent foramen ovale with [id number]-[id number]-qemo shunt. 10.Gastroesophageal reflux disease. 11.Hyperlipidemia. 12.Complete heart block with pacemaker. 13.Primary osteoarthritis. 14.Severe epistaxis both from local trauma from the nasal cannula and patient being on Eliquis. PLAN: I had a very lengthy discussion with the patient and both the daughters, want to minimize invasion if it will not change the patient's course. Did tell the nurse to keep the patient's left arm elevated because of severe epistaxis. After speaking to the daughters, decision was made to hold off the Eliquis until bleeding stops. Also tube feeding will be started through the NG tube knowing very well that this is somewhat of until we decide what further to. Also spoke to Dr. Denise from Neurology and Dr. Latham from Critical Care and Pulmonary. Prognosis remains guarded. The patient still remains rather ill. Total of about 50 minutes was spent with over 25 to 30 minutes of discussion. MMODL / IJN: [id number] /
[2019-03-26] MEDS: FINASTERIDE 5 MG TAB PO SCH (06:50)
[2019-03-26] MEDS: FAMOTIDINE 20 MG TAB PO SCH (06:50)
[2019-03-26] MEDS: THIAMINE 100 MG TAB PO SCH (06:51)
[2019-03-26] MEDS: APIXABAN 5 MG TAB PO SCH ×2 (06:51→22:52)
[2019-03-26] MEDS: LOSARTAN 25 MG TAB PO SCH (06:51)
[2019-03-26] MEDS: METOPROLOL TARTRATE 12.5 MG TAB PO SCH ×2 (06:51→22:52)
[2019-03-26] MEDS: ASPIRIN 300 MG SUPP RECTAL SCH (06:57)
[2019-03-26 07:03] LABS: Glucose,Whole Blood 142 mg/dL (75-99)
--- NOTE | 2019-03-26 07:16 | XR ---
EXAMINATION TYPE: XR chest 1V portable DATE OF EXAM: 03/26/2019 COMPARISON: Prior chest x-ray 03/24/2019 HISTORY: Pneumonia TECHNIQUE: Single frontal view of the chest is obtained. FINDINGS: Gastric tube is present with the distal tip in the stomach. Patient is post median sternot juan a. Aortic valve stent is present and the pacemaker is stable. Airspace disease persists throughout the right lung. No pneumothorax or sizable effusion. Heart size is stable. IMPRESSION: Findings compatible with patient's history of pneumonia. Follow-up recommended.
[2019-03-26] MEDS: IPRATROPIUM-ALBUTEROL 3 ML NEB INHALATION SCH ×3 (08:32→21:03)
[2019-03-26 08:33] LABS: Anion Gap 4 mmol/L; Blood Urea Nitrogen 32 mg/dL (9-20); Calcium 8.7 mg/dL (8.4-10.2); Carbon Dioxide 25 mmol/L (22-30); Chloride 116 mmol/L (98-107); Glucose 163 mg/dL (74-99); Potassium 4.1 mmol/L (3.5-5.1); Sodium 145 mmol/L (137-145)
[2019-03-26 08:37] LABS: HCT 43.9 % (39.0-53.0); HGB 13.5 gm/dL (13.0-17.5); Hypochromasia Slight; MCH 30.6 pg (25.0-35.0); MCHC 30.9 g/dL (31.0-37.0); MCV 99.2 fL (80.0-100.0); Mean Platelet Volume 9.8; RBC 4.42 m/uL (4.30-5.90); RDW 14.4 % (11.5-15.5); WBC 9.9 k/uL (3.8-10.6)
[2019-03-26 08:45] LABS: Platelet Count 21 k/uL (150-450)
[2019-03-26 08:57] LABS: Monocytes # (M) 0.69 k/uL (0-1.0); Neutrophils # (M) 8.71 k/uL (1.3-7.7); Neutrophils % (M) 88 %; Nucleated Red Blood Cells 0 /100 WBC (0-0); Total Cells Counted 100
[2019-03-26 08:58] LABS: Poikilocytosis (M) Present
--- NOTE | 2019-03-26 09:14 | P.PN ---
Subjective Progress Note Date: 03/26/19 Patient was seen for a follow-up. Patient's family members were not present at this time. Patient continues to be very groggy, lethargic, mumbles, difficult to understand. Anticoagulation has been resumed. Patient had a CTA of head and neck with contrast from 03/23/2019, which revealed no high-grade luminal narrowing of bilateral carotid system. Approximately 50% luminal narrowing of the proximal portion of the right ICA secondary to calcified atheromatous plaquing. Focal high-grade greater than 70% stenosis of the left V4 vertebral artery. No large vessel intracranial arterial narrowing, aneurysms or dissection. Right-sided pleural effusion with multifocal airspace disease in the partially visualized right lung apex. Patient's renal functions on 03/24/2019 are normal. Patient's stroke is likely due to left vertebral artery stenosis > 70%, probably producing artery to artery embolism. Patient also has PFO, and possible multiple cardiac sources of emboli as well. PREVIOUS HISTORY: Patient has presented with weakness of the lower extremities on 03/18/2019, after he came from grocery store. Patient's daughter has noticed that he was dragging his right leg slightly. Patient has developed weakness of the legs bilaterally, right side more. Today he is also having some weakness of the upper body. Patient has history of dementia, therefore not able to provide appropriate history. Denies weakness of the upper extremities, although in examination there is definite weakness as mentioned below. 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 Patient played basketball, and was fully active. His right leg is slightly shorter, but no disability. He does not use any assistive device. Patient prior to this arrival, was fully ambulatory. No history of upper respiratory infection previously, although sometimes he would cough, has nasal drip, but no office or hospital visits for upper respiratory infection. Patient's blood test shows normal CBC, PT/PTT, Chem-7, LFTs, troponin, TSH. UA showed moderate leukocyte esterase and 13 WBCs. Patient cannot have MRI because of presence of pacemaker. Patient underwent CT of the cervical thoracic and lumbar spine, which revealed dextroscoliosis of the thoracic lumbar junction and levoscoliosis of the lumbar spine with multilevel degenerative disc disease and multilevel spinal canal stenosis, that would be better evaluated with MRI. Multifocal groundglass reticular opacity throughout the right lung, is most suspicious for multifocal pneumonia. Mediastinal adenopathy is poorly defined but likely reactive. Infrarenal abdominal aortic aneurysm measuring 3.7 cm, fusiform in nature. Small pleural effusion, right greater than left. Anasarca and haziness of abdominal may related to fluid overload. CT head showed no acute intracranial process. Diffuse age-related cerebral atrophy and diffuse confluent chronic small vessel ischemic changes. Normal pressure hydrocephalus could be considered. Punctate old lacunar and bilateral basal ganglia. I reviewed the computed tomography scan, and has some prominence of the ventricles, but does not appear very concerning for NPH. Patient currently on Apixaban 2.5 mg twice a day, and also started on aspirin 300 mg rectally daily. Objective - Vital Signs Vital signs: Vital Signs Temp 98.0 F 03/26/19 06:47 Pulse 70 03/26/19 08:45 Resp 19 03/26/19 06:47 BP 159/87 03/26/19 06:47 Pulse Ox 95 03/26/19 06:47 Intake & Output 03/25/19 03/26/19 03/26/19 18:59 06:59 18:59 Intake Total 1850 Balance 1850 Weight 63.503 kg Intake: Intake, IV Titration 850 Amount Meropenem 1 gm In Sodium 100 Chloride 0.9% 100 ml @ 200 mls/hr IVPB Q12H [facility] Rx#:[id number] Sodium Chloride 0.9% 1, 750 000 ml @ 75 mls/hr IV . [id number] [facility] Rx#:[id number] Tube Feeding 1000 Other: Voiding Method Diaper Diaper Diaper Incontinent Incontinent Incontinent # Voids 2 - Exam On examination patient is an elderly male, , mumbles, but incomprehensible speech. Face appears symmetric. Pupils are round and reacting. Visual miller could not be tested because of his mental status. Patient appears in mild to moderate respiratory distress. Patient appears weak bilaterally. Patient's left arm is flaccid. 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 Patient did not lift his either legs off the bed. Patient has bilateral Babinski. - Labs CBC & Chem 7: 03/26/19 07:55 03/26/19 07:55 Labs: Abnormal Lab Results - Last 24 Hours (Table) 03/25/19 03/25/19 03/25/19 Range/Units 12:02 16:53 20:58 MCHC (31.0-37.0) g/dL Plt Count (150-450) k/uL Neutrophils # (Manual) (1.3-7.7) k/uL Lymphocytes # (Manual) (1.0-4.8) k/uL Chloride (98-107) mmol/L BUN (9-20) mg/dL Creatinine (0.66-1.25) mg/dL Glucose (74-99) mg/dL POC Glucose (mg/dL) 124 H 143 H 126 H (75-99) mg/dL 03/26/19 03/26/19 03/26/19 Range/Units 07:01 07:55 07:55 MCHC 30.9 L (31.0-37.0) g/dL Plt Count 21 L D (150-450) k/uL Neutrophils # (Manual) 8.71 H (1.3-7.7) k/uL Lymphocytes # (Manual) 0.40 L (1.0-4.8) k/uL Chloride 116 H (98-107) mmol/L BUN 32 H (9-20) mg/dL Creatinine 0.61 L (0.66-1.25) mg/dL Glucose 163 H (74-99) mg/dL POC Glucose (mg/dL) 142 H (75-99) mg/dL Microbiology - Last 24 Hours (Table) 03/19/19 09:08 Blood Culture - Final Blood No Growth after 144 hours 03/19/19 08:08 Blood Culture - Final Blood No Growth after 144 hours 03/23/19 07:20 Gram Stain - Final Sputum Sputum Culture - Final Sandy albicans Pseudomonas aeruginosa Assessment and Plan Assessment: * Acute left cerebellar stroke. CTA of head and neck showed focal high-grade > 70% stenosis of the left V4 vertebral artery. * Altered mental status, probably multifactorial. CVA is the most likely cause, with added effect of metabolic encephalopathy from pneumonia, with pre- existing history of dementia * Gait ataxia, inability to stand/walk. Likely due to cerebellar CVA. Cerebellar stroke does not typically explain bilateral hemiparesis. * Left IJ thrombus, chronic, on anticoagulation with Apixaban 2.5 mg twice a day. * Aspiration pneumonia, due to dysphagia from CVA. Patient currently on meropenem. * History of pacemaker placement * History of TAVR * History of polio right lower extremity, and the right leg shorter than the left, but but functionally stable per his daughter's report Plan: Continue Apixaban 2.5 mg twice a day. Continue aspirin 300 mg rectally daily. 2-D echo showed severe concentric LVH, left atrium is mildly dilated. PFO noted with [id number] shunt on agitated normal saline injection. 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 Patient has been seen by cardiology. Recommended continued treatment Patient does have significant stenosis of the left vertebral artery, but patient probably not a candidate for any mechanical intervention at this time, due to age factor, other comorbidities, and high risk procedure due to the location of the stenosis. Need to optimize medical treatment. Start PT, OT, speech therapy. Consider repeating computed tomography scan of the head, because of worsening weakness and left hemiplegia, if family okays.
[2019-03-26 11:37] LABS: Glucose,Whole Blood 164 mg/dL (75-99)
--- NOTE | 2019-03-26 11:53 | US ---
EXAMINATION TYPE: US venous doppler duplex UE LT DATE OF EXAM: 03/26/2019 COMPARISON: NONE CLINICAL HISTORY: DVT. HX DVT in Left IJV. Pt on blood thinners. SIDE PERFORMED: Left Grayscale, color Doppler, spectral Doppler imaging performed of the deep veins of the left upper extr emity. There is internal echoes seen within the internal jugular vein on the left without color flow. There is lack of compressibility. Left axillary vein also shows internal echoes with lack of compressibilit y as does the one of the paired brachial veins Left Arm: Positive for DVT in IJV, subclavian v, axillary v, and single upper brachial vein. Limited due to patient edema and position. Edema channels are present within the upper extremity. The basilic vein is at least partially capo sible and shows color flow. Cephalic vein was compressible and patent. Radial and ulnar veins are pat ent. IMPRESSION: Deep venous thrombosis as described. A Red level critical message alert has been initiated for Kem Bolaños via the [employer] tical Results System on 03/26/2019 11:51 AM. This message alert has been sent to Kem Bolaños via e preferences provided by the clinician for the receipt of Radiology Critical Findings. Message ID [id number].
[2019-03-26] MEDS: SODIUM CHLORIDE 0.9% 1,000 ML IV SCH ×2 (16:51→23:44)
[2019-03-26 16:59] LABS: Glucose,Whole Blood 179 mg/dL (75-99)
[2019-03-26 20:52] LABS: Glucose,Whole Blood 181 mg/dL (75-99)
[2019-03-26] MEDS: ATORVASTATIN 10 MG TAB PO SCH (22:52)
[2019-03-27] MEDS: ACETAMINOPHEN TAB 325 MG TAB PO PRN ×2 (01:07→07:54)
[2019-03-27] MEDS: SODIUM CHLORIDE 0.9% 1,000 ML IV SCH (01:07)
[2019-03-27] MEDS: MEROPENEM 1 GM in SODIUM CHLORIDE 0.9% 100 ML IVPB SCH ×2 (04:10→18:42)
[2019-03-27 07:16] LABS: Glucose,Whole Blood 162 mg/dL (75-99)
[2019-03-27] MEDS: FINASTERIDE 5 MG TAB PO SCH (07:55)
[2019-03-27] MEDS: METOPROLOL TARTRATE 12.5 MG TAB PO SCH (07:55)
[2019-03-27] MEDS: FAMOTIDINE 20 MG TAB PO SCH (07:55)
[2019-03-27] MEDS: APIXABAN 5 MG TAB PO SCH (07:55)
[2019-03-27] MEDS: THIAMINE 100 MG TAB PO SCH (07:55)
[2019-03-27] MEDS: ASPIRIN 300 MG SUPP RECTAL SCH (07:56)
[2019-03-27] MEDS: LOSARTAN 25 MG TAB PO SCH (07:56)
[2019-03-27 07:58] LABS: Basophils % (A) 0 %; Eosinophils # (A) 0.2 k/uL (0-0.7); Eosinophils % (A) 2 %; HCT 45.6 % (39.0-53.0); HGB 13.2 gm/dL (13.0-17.5); Hypochromasia Moderate; Lymphocytes # (A) 0.6 k/uL (1.0-4.8); Lymphocytes % (A) 6 %; MCH 29.4 pg (25.0-35.0); MCHC 29.1 g/dL (31.0-37.0); Macrocytosis Slight; Mean Platelet Volume 12.9; Monocytes # (A) 0.5 k/uL (0-1.0); Monocytes % (A) 5 %; Neutrophils % (A) 86 %; RBC 4.51 m/uL (4.30-5.90); RDW 14.2 % (11.5-15.5); WBC 10.4 k/uL (3.8-10.6)
[2019-03-27 08:14] LABS: Anion Gap 1 mmol/L; Blood Urea Nitrogen 35 mg/dL (9-20); Calcium 8.8 mg/dL (8.4-10.2); Carbon Dioxide 27 mmol/L (22-30); Chloride 121 mmol/L (98-107); Glucose 175 mg/dL (74-99); Potassium 4.2 mmol/L (3.5-5.1); Sodium 149 mmol/L (137-145)
[2019-03-27 08:35] LABS: Platelet Count 18 k/uL (150-450)
[2019-03-27] MEDS: IPRATROPIUM-ALBUTEROL 3 ML NEB INHALATION SCH ×2 (08:55→13:19)
--- NOTE | 2019-03-27 09:12 | PN ---
PROGRESS NOTE DATE OF SERVICE: 03/26/2019 PRESENTING COMPLAINT: Tired. INTERVAL HISTORY: Patient presented with severe pneumonia, metabolic encephalopathy, left cerebellar stroke. Remains to be lethargic, but will follow simple commands. Requiring oxygen. Epistaxis did stop. I did start the Eliquis this morning. The patient's swelling in the arm persisted. REVIEW OF SYSTEMS: Could not be done as patient is not really talking. CURRENT MEDICATIONS: Current medications are reviewed that include DuoNeb, Eliquis, aspirin, IV meropenem, tube feeding. PHYSICAL EXAMINATION: On examination, temperature 98, pulse 60, respiratory 19, blood pressure 159/87, pulse ox 95% on 6 L. GENERAL APPEARANCE: Sitting up, tired appearing, but does follow commands. EYES: Pupils equal. Conjunctivae pale. NECK: JVD unable to assess. Mass not palpable. ENT: Nasal cannula in place. RESPIRATORY: Effort increased. LUNGS: Decreased breath sounds. Some right-sided crackles. CARDIOVASCULAR: Heart sounds irregular. Edema present. ENT: Dried blood in the nostrils. ABDOMEN: Soft, nontender. Liver and spleen not palpable. NEUROLOGICAL: The patient is more weak on the left side. Patient swelling of the left upper extremity has increased. INVESTIGATIONS: White count 9.9, hemoglobin 13.5. Potassium 4.1, BUN 32, creatinine 0.61. Accu-Cheks are noted. Doppler ultrasound is showing DVT. Chest x-ray film personally reviewed by me shows significant infiltrate on the right side. ASSESSMENT: 1. Multilobar pneumonia suspect gram-negative organism including aspiration, causing severe hypoxic respiratory failure, still requiring 6 L of oxygen. 2. Acute metabolic encephalopathy, delirium, multifactorial, slow to respond. 3. Acute left cerebellar stroke. 4. Thoracolumbar spine degenerative joint disease. 5. Persistent atrial fibrillation with a pacemaker in place, chronically on Eliquis. 6. 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 7. Acute deep venous thrombosis of the left veins. 8. Coronary artery disease with history of coronary artery bypass. 9. Chronic congestive heart failure from systolic dysfunction, ejection fraction 30% to 35%. 10.Patent Siu ovale with rfdke-[id number] shunt. 11.Gastroesophageal reflux disease. 12.Hyperlipidemia. 13.Complete heart block with pacemaker. 14.Primary osteoarthritis. 15.Severe epistaxis, currently stopped. PLAN: I did talk to Dr. Bolaños from vascular surgery today. Patient is already back on Eliquis from this morning. Prognosis remains guarded. Also discussed with Dr. Denise from Neurology. Prognosis remains not good. Supportive care is to continue. Patient is getting tube feedings. Will back off on the IV fluids. The patient remains rather ill. MMODL / IJN: [id number] /
--- NOTE | 2019-03-27 11:49 | P.PN ---
Subjective Progress Note Date: 03/27/19 Patient was seen for a follow-up. Patient's family members were not present at this time. Patient continues to be very groggy, lethargic, mumbles, difficult to understand. Anticoagulation has been resumed. Patient now has developed DVT in the left upper extremity. Patient has ventimask, as he developed desaturation last night, and is better with Ventimask. Patient had WBC 10.4, hemoglobin 13.2 but platelets are very low 18,000. Sodium 149 potassium 4.2 renal functions are normal. B1 is normal 80, B12 2391. IgG normal, IgA 388, IgM 51. Patient had a CTA of head and neck with contrast from 03/23/2019, which revealed no high-grade luminal narrowing of bilateral carotid system. Approximately 50% luminal narrowing of the proximal portion of the right ICA secondary to calcified atheromatous plaquing. Focal high-grade greater than 70% stenosis of the left V4 vertebral artery. No large vessel intracranial arterial narrowing, aneurysms or dissection. Right-sided pleural effusion with multifocal airspace disease in the partially visualized right lung apex. Patient's renal functions on 03/24/2019 are normal. Patient's stroke is likely due to left vertebral artery stenosis > 70%, probably producing artery to artery embolism. Patient also has PFO, and possible multiple cardiac sources of emboli as well. PREVIOUS HISTORY: Patient has presented with weakness of the lower extremities on 03/18/2019, after he came from grocery store. Patient's daughter has noticed that he was dragging his right leg slightly. Patient has developed weakness of the legs bi laterally, right side more. Today he is also having some weakness of the upper body. Patient has history of dementia, therefore not able to provide appropriate history. Denies weakness of the upper extremities, although in examination there is definite weakness as mentioned below. 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 Patient played basketball, and was fully active. His right leg is slightly shorter, but no disability. He does not use any assistive device. Patient prior to this arrival, was fully ambulatory. No history of upper respiratory infection previously, although sometimes he would cough, has nasal drip, but no office or hospital visits for upper respiratory infection. Patient's blood test shows normal CBC, PT/PTT, Chem-7, LFTs, troponin, TSH. UA showed moderate leukocyte esterase and 13 WBCs. Patient cannot have MRI because of presence of pacemaker. Patient underwent CT of the cervical thoracic and lumbar spine, which revealed dextroscoliosis of the thoracic lumbar junction and levoscoliosis of the lumbar spine with multilevel degenerative disc disease and multilevel spinal canal stenosis, that would be better evaluated with MRI. Multifocal groundglass reticular opacity throughout the right lung, is most suspicious for multifocal pneumonia. Mediastinal adenopathy is poorly defined but likely reactive. Infrarenal abdominal aortic aneurysm measuring 3.7 cm, fusiform in nature. Small pleural effusion, right greater than left. Anasarca and haziness of abdominal may related to fluid overload. CT head showed no acute intracranial process. Diffuse age-related cerebral atrophy and diffuse confluent chronic small vessel ischemic changes. Normal pressure hydrocephalus could be considered. Punctate old lacunar and bilateral basal ganglia. I reviewed the computed tomography scan, and has some prominence of the ventricles, but does not appear very concerning for NPH. Patient currently on Apixaban 2.5 mg twice a day, and also started on aspirin 300 mg rectally daily. Objective - Vital Signs Vital signs: Vital Signs Temp 98.7 F 03/27/19 07:13 Pulse 60 03/27/19 07:13 Resp 34 H 03/27/19 01:00 BP 176/87 03/27/19 07:13 Pulse Ox 98 03/27/19 07:13 Intake & Output 03/26/19 03/27/19 03/27/19 18:59 06:59 18:59 Intake Total 2560 Balance 2560 Intake: Intake, IV Titration 260 Amount Meropenem 1 gm In Sodium 100 Chloride 0.9% 100 ml @ 200 mls/hr IVPB Q12H [facility] Rx#:[id number] Sodium Chloride 0.9% 1, 160 000 ml @ 20 mls/hr IV . Q24H [facility] Rx#:[id number] Tube Feeding 2300 Other: Voiding Method Diaper Diaper Incontinent Incontinent # Voids 2 - Exam On examination patient is an elderly male, , mumbles, but incomprehensible speech. Patient is Ventimask on. Face appears symmetric. Pupils are round and reacting. Visual miller could not be tested because of his mental status. Patient appears in mild respiratory distress. Patient appears weak bilaterally. Patient's left arm is flaccid. His shiftman in the right is 4. Patient did not lift his either legs off the bed. Patient has bilateral Babinski. - Labs CBC & Chem 7: 03/27/19 07:32 03/27/19 07:32 Labs: Abnormal Lab Results - Last 24 Hours (Table) 03/26/19 03/26/19 03/27/19 Range/Units 16:54 20:49 07:15 MCV (80.0-100.0) fL MCHC (31.0-37.0) g/dL Plt Count (150-450) k/uL Neutrophils # (1.3-7.7) k/uL Lymphocytes # (1.0-4.8) k/uL Sodium (137-145) mmol/L Chloride (98-107) mmol/L BUN (9-20) mg/dL Glucose (74-99) mg/dL POC Glucose (mg/dL) 179 H 181 H 162 H (75-99) mg/dL 03/27/19 03/27/19 Range/Units 07:32 07:32 MCV 101.0 H (80.0-100.0) fL MCHC 29.1 L (31.0-37.0) g/dL Plt Count 18 L* (150-450) k/uL Neutrophils # 9.0 H (1.3-7.7) k/uL Lymphocytes # 0.6 L (1.0-4.8) k/uL Sodium 149 H (137-145) mmol/L Chloride 121 H (98-107) mmol/L BUN 35 H (9-20) mg/dL Glucose 175 H (74-99) mg/dL POC Glucose (mg/dL) (75-99) mg/dL Assessment and Plan Assessment: * Acute left cerebellar stroke. CTA of head and neck showed focal high-grade > 70% stenosis of the left V4 vertebral artery. * Altered mental status, probably multifactorial. CVA is the most likely cause, with added effect of metabolic encephalopathy from pneumonia, with pre- existing history of dementia * Gait ataxia, inability to stand/walk. Likely due to cerebellar CVA. Cerebellar stroke does not typically explain bilateral hemiparesis. * New-onset left upper extremity DVT * Thrombocytopenia * Left IJ thrombus, chronic, on anticoagulation with Apixaban 2.5 mg twice a day. * Aspiration pneumonia, due to dysphagia from CVA. Patient currently on meropenem. * History of pacemaker placement * History of TAVR * History of polio right lower extremity, and the right leg shorter than the left, but but functionally stable per his daughter's report Plan: Continue Apixaban 2.5 mg twice a day. Continue aspirin 300 mg rectally daily. Hematology consultation for thrombocytopenia 2-D echo showed severe concentric LVH, left atrium is mildly dilated. PFO noted with fbofy-hc-suko shunt on agitated normal saline injection. 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 Patient has been seen by cardiology. Recommended continued treatment Patient does have significant stenosis of the left vertebral artery, but patient probably not a candidate for any mechanical intervention at this time, due to age factor, other comorbidities, and high risk procedure due to the location of the stenosis. Need to optimize medical treatment. Start PT, OT, speech therapy. Consider repeating computed tomography scan of the head, because of worsening weakness and left hemiplegia, if family okays. Prognosis appears very guarded due to multiple significant comorbid conditions..
[2019-03-27 11:54] LABS: Glucose,Whole Blood 155 mg/dL (75-99)
[2019-03-27 16:05] VITALS: BP 96/52; PULSE 66; RESP 22; TEMP 98.3
[2019-03-27] MEDS ORDERED: SCOPOLAMINE 1.5MG/72HR PATCH TRANSDERM STA (16:16)
[2019-03-27 17:07] LABS: Glucose,Whole Blood 147 mg/dL (75-99)
[2019-03-27] MEDS ORDERED: APIXABAN 2.5 MG TABLET PO SCH (21:00)
--- NOTE | 2019-03-28 07:06 | PN ---
PROGRESS NOTE DATE OF SERVICE: 03/27/2019 ADVANCED CARE PLANNING: Today on 03/27/2019 had a meeting with the patient's two daughters including her DPOA, Lisset, patient's and granddaughter. Patient's multiple medical problems were discussed, including patient's feeding pain symptoms. Overall picture low platelets. Several questions were answered. It was indicated yet again that patient's prognosis is not good and that I have just been discussing with the different consultants. Later they communicated to the [facility] nurse to call me, stating that the patient has decided to proceed with inpatient comfort measures. Total time spent in advanced care planning today was about 25 minutes. MMNANL / PAWELN: [id number] /
--- NOTE | 2019-03-28 07:45 | DS ---
DISCHARGE SUMMARY DATE OF ADMISSION: 03/20/2019 DATE OF DISCHARGE: 03/27/2019 FINAL DIAGNOSES: 1. Multilobar pneumonia, suspect gram-negative organism including aspiration, causing severe hypoxic respiratory failure, POA, not improving. 2. Acute metabolic encephalopathy with delirium, multifactorial, slow to respond. 3. Acute left cerebellar stroke in a right-handed patient. 4. Thoracolumbar spine degenerative joint disease. 5. Persistent atrial fibrillation with pacemaker in place, chronically on Eliquis. 6. Acute deep venous thrombosis of the left upper extremity. 7. Coronary artery disease with history of coronary artery bypass. 8. Chronic congestive heart failure from systolic dysfunction, ejection fraction 30% to 35%. 9. Patent foramen ovale with uydit-[id number]-djbb shunt. 10.Gastroesophageal reflux disease. 11.Hyperlipidemia. 12.Complete heart block with a pacemaker. 13.Primary osteoarthritis. 14.Severe epistaxis. 15.Severe thrombocytopenia, likely from infection. CONSULTATION: 1. Dr. Denise from Neurology. 2. Dr. Latham from Pulmonary. 3. Dr. Tyler Christie from Cardiology. HOSPITAL COURSE: This very pleasant gentleman presented with generalized weakness, who has multiple medical problems. Patient was diagnosed with multiple problems including pneumonia, aspiration, persistent atrial fibrillation, EF of around 20%. Patient also has DVT in the left jugular vein as an outpatient. Patient also found to have a left cerebral stroke, also developed DVT in the left upper extremity. During the hospital course, also developed severe epistaxis. Eliquis was temporally held. Patient overall continued to deteriorate. Had multiple discussions with the family members and also discussed with my supply chain consultant, colleagues on several scores. The prognosis remained to be poor. Patient was seen by [facility] team earlier today and family then opted to go in for comfort care as inpatient. DISPOSITION: Inpatient for comfort care. MEDICATIONS: Comfort pack. Discussion and discharge planning more than 35 minutes. MMODL / IJN: [id number] /
== END 2019-03-27 20:10 | disposition hospice, inpatient (51) | DRG 177 ==
LOC: EC 21:57 → 4SSUR 03-19 04:22 → OBSVTOIN 03-20 10:51
PROVIDERS: ADMIT Hospitalist; ATTEND Hospitalist
DX: J15.6 Pneumonia due to other Gram-negative bacteria (principal); G93.41 Metabolic encephalopathy; J96.01 Acute respiratory failure with hypoxia; I63.212 Cerebral infarction due to unspecified occlusion or stenosis of left vertebral artery; G81.94 Hemiplegia, unspecified affecting left nondominant side; I44.2 Atrioventricular block, complete; I48.1 Persistent atrial fibrillation; I50.22 Chronic systolic (congestive) heart failure; I82.622 Acute embolism and thrombosis of deep veins of left upper extremity; I82.C22 Chronic embolism and thrombosis of left internal jugular vein; Q21.1 Atrial septal defect; E87.2 Acidosis; G81.91 Hemiplegia, unspecified affecting right dominant side; J69.0 Pneumonitis due to inhalation of food and vomit; Z66 Do not resuscitate; Z51.5 Encounter for palliative care; R47.1 Dysarthria and anarthria; R26.0 Ataxic gait; Z87.891 Personal history of nicotine dependence; B91 Sequelae of poliomyelitis; E78.5 Hyperlipidemia, unspecified; E86.0 Dehydration; F03.90 Unspecified dementia, unspecified severity, without behavioral disturbance, psychotic disturbance, mood disturbance, and anxiety; I08.1 Rheumatic disorders of both mitral and tricuspid valves; I11.0 Hypertensive heart disease with heart failure; I25.10 Atherosclerotic heart disease of native coronary artery without angina pectoris; I25.2 Old myocardial infarction; I25.5 Ischemic cardiomyopathy; I27.20 Pulmonary hypertension, unspecified; I48.0 Paroxysmal atrial fibrillation; I71.4 Abdominal aortic aneurysm, without rupture; I73.9 Peripheral vascular disease, unspecified; K21.9 Gastro-esophageal reflux disease without esophagitis; M19.90 Unspecified osteoarthritis, unspecified site; M41.9 Scoliosis, unspecified; M51.35 Other intervertebral disc degeneration, thoracolumbar region; M48.00 Spinal stenosis, site unspecified; R04.0 Epistaxis; R13.10 Dysphagia, unspecified; R47.02 Dysphasia; Z79.01 Long term (current) use of anticoagulants; Z79.899 Other long term (current) drug therapy; Z80.0 Family history of malignant neoplasm of digestive organs; Z80.1 Family history of malignant neoplasm of trachea, bronchus and lung; M21.70 Unequal limb length (acquired), unspecified site; G89.29 Other chronic pain; Z95.0 Presence of cardiac pacemaker; Z95.1 Presence of aortocoronary bypass graft; Z95.3 Presence of xenogenic heart valve; Z98.42 Cataract extraction status, left eye; Z98.41 Cataract extraction status, right eye; Z96.1 Presence of intraocular lens; E53.8 Deficiency of other specified B group vitamins; D69.59 Other secondary thrombocytopenia
CPT/HCPCS: 36415; 36600; 70450; 70496; 70498; 71045; 71046; 72125; 72128; 72131; 74018; 80048; 80053; 81001; 82550; 82607; 82746; 82784; 82805; 83605; 83735; 83880; 84425; 84443; 84484; 85025; 85027; 85610; 85730; 86334; 86780; 87040; 87070; 87077; 87186; 87205; 93005; 93306; 93880; 94640; 94660; 94760; 99285

== ENCOUNTER 2019-03-27 18:00 | Inpatient (IN) | payer BC, MEDICAID, MEDICARE ==
[2019-03-27] MEDS ORDERED: LORazepam 2 MG/ML INJ IV PRN (18:02)
[2019-03-27] MEDS ORDERED: ONDANSETRON 4 MG/2 ML VIAL IVP PRN (18:02)
[2019-03-27] MEDS ORDERED: ACETAMINOPHEN SUPPOSITORY 650 MG SUPP RECTAL PRN (18:02)
[2019-03-27] MEDS ORDERED: ATROPINE OPHTH SOLN 1% 5ML BTL SUBLINGUAL PRN (18:02)
[2019-03-27] MEDS ORDERED: SCOPOLAMINE 1.5MG/72HR PATCH TRANSDERM SCH (18:15)
[2019-03-27] MEDS: MORPHINE SULFATE 2 MG/ML SYRINGE IV PRN ×3 (20:16→23:42)
[2019-03-28] MEDS: MORPHINE SULFATE 2 MG/ML SYRINGE IV PRN ×4 (01:20→06:55)
[2019-03-28] MEDS ORDERED: MORPHINE SULFATE (100 MG/2 ML) 100 MG in SODIUM CHLORIDE 0.9% 100 ML IV SCH (07:00)
[2019-03-28 11:32] VITALS: PULSE 62; RESP 18
--- NOTE | 2019-03-29 05:00 | DS ---
DISCHARGE SUMMARY DATE OF ADMISSION: 03/27/2019 DATE OF DISCHARGE: 03/28/2019. CAUSE OF : Aspiration pneumonia. OTHER MEDICAL PROBLEMS: Coronary artery disease. HOSPITAL COURSE: This patient admitted to [facility]. Peter Venus for symptom control. Comfort care packet was used. The patient succumbed to underlying multiple problems and patient . Copy to Dr. Parr. MMNANL / IJN: [id number] /
== END 2019-03-28 12:25 | disposition expired | DRG 951 ==
LOC: 4SSUR 20:11
PROVIDERS: ADMIT Hospitalist; ATTEND Hospitalist
DX: Z51.5 Encounter for palliative care (principal); J69.0 Pneumonitis due to inhalation of food and vomit; K92.2 Gastrointestinal hemorrhage, unspecified; Z66 Do not resuscitate; I25.10 Atherosclerotic heart disease of native coronary artery without angina pectoris